=== PATIENT | female | born 1955 | race Caucasian/White ===

== ENCOUNTER 2020-01-23 10:36 | Emergency (ER) | payer OTHER ==
--- OUTSIDE RECORDS SUMMARY | 2020-01-23 10:40 | XMS REPORT | Continuity of Care Document ---
:1955 Author Organization [facility] t Address [address] [place] [address] Care Team Providers Name Role Phone Israel Phillips Attending Clinician Thompson MEDLEY, L Attending Clinician Problems Condition Condition Condition Status Onset Resolution Last Treating Co mments Source Name Details Category Date Date Treatment Clinician Date Hyperlipid Hyperlipid Problem Active 2019-0 V illage emia emia 01-02 Family 00:00: Practic 00 e Essential Essential Problem Active Martha margaret hypertensi Hypertensi 01-02 [facility] on on 00:00: Practic 00 e History of History of Problem Active 2019- V illage malignant Malignant 01-02 Fami ly neoplasm Neoplasm 00:00: Practi c of kidney of Kidney 00 e Obesity Obesity Problem Active 2020-0 Village 01-02 Family 00:00: Practic 00 e Nicotine Nicotine Problem Active Stern ge dependence Dependence 01-02 [facility] 00:00: Practic 00 e Paresthesi Paresthesi Problem Active [facility] skin a of skin [facility] Lesion of Lesion of Problem Active [facility] right right [facility] - median median [facility] nerve nerve l [facility] Clin[facility] Carpal Carpal Diagnosis Active [facility] tunnel tunnel [facility] - syndrome, syndrome, Ming andrae right right l Outpati ent Clinics Pain in Pain in Diagnosis Active [facility] joint of [facility] - right hand right hand Me moria l [facility]pat[facility] ent Clinics Dizziness Problem Active 2019-07-06 Me moria (finding) 22:48:14 l [place] Dizziness (finding) Active Problem 07/06/2019 [facility] Headache Problem Active 2019-07-06 Mem oria (finding) 22:48:14 l Headache Fel[place] n (finding) Active Problem 07/06/2019 [facility] Hypertensi Problem Active 2019-07-06 M emoria ve 22:48:14 l disorder, Nuno systemic Hypertensi arterial ve (disorder) disorder, systemic arterial (disorder) Active Problem 07/06/2019 [facility] Hypothyroi Problem Active 2019-07-06 M emoria dism 22:48:14 l (disorder) [place] n Hypothyroi dism (disorder) Active Problem 07/06/2019 [facility] Morbid Problem Active 2019-07-06 Memor ia obesity 22:48:14 l (disorder) Morbid Herm grant obesity (disorder) Active Problem 07/06/2019 [facility] 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 22:48:14 l (disorder) 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) Active Problem 07/06/2019 [facility] Renal cell Problem Active 2019-07-06 M emoria carcinoma 22:48:14 l (disorder) Renal Autumn nn cell carcinoma (disorder) Active Problem 07/06/2019 [facility] Transient Problem Active 2019-07-06 Me moria ischemic 22:48:14 l attack [place] (disorder) Transient ischemic attack (disorder) Active Problem 07/06/2019 [facility] Carpal Problem Active 2019-07-06 Memor ia tunnel 22:48:14 l syndrome Carpal [place] n (disorder) tunnel syndrome (disorder) Active Problem 07/06/2019 [facility] Lumbar Problem Active 2019-07-06 Memor ia radiculopa 22:48:14 l thy Lumbar [place] (disorder) radiculopa thy (disorder) Active Problem 07/06/2019 [facility] Allergies, Adverse Reactions, Alerts Allergy Allergy Status Severity Reaction(s) Onset Inactive Treating Comm ents Source Name Type Date Date Clinician Iodine Adverse Active Info Not [facility] Reaction Available [facility] Iodine Allergy Active [place]om[place] to Family substanc Practic e e SULFA Allergy Active Anaphylaxis Vill age (SULFONA to Family MIDE substanc Practic ANTIBIOT e e ICS) sulfa sulfa Active Memoria drugs drugs l Nuno iodinate iodinate Active Memori a d d l radiocon radiocon [place] n trast trast dyes dyes codeine codeine Active Nichol Reina Social History Smoking Status Start Date Stop Date Source Heavy Tobacco Smoker [facility] Social History 2019-01-03 19:04:36 Ayana grimm Medications Ordered Filled Start Stop Current Ordering Indication Dosage Frequency Signature Comments Components Source Medication Medication Date Date Medication? Clinician (SIG) Name Name oxcarbazepi 2017-05 No 150 mg = 1 Memoria ne 150 MG 1-29 tab, PO, l Oral Tablet 17:17: Bedtime, # Nuno [Trileptal] 00 30 tab, 2 Refill(s), Pharmacy: [facility] pregabalin 2017-05 No 50 mg = 1 Me moria 50 MG Oral 0-18 cap, PO, l Capsule 16:28: Bedtime, # Bienvenido burns [Lyrica] 00 14 cap, 0 Refill(s), other atorvastati 2017-05 Yes 10 mg = 1 M emoria n 10 mg 0-18 tab, PO, l oral tablet 16:28: Daily, # Remberto rmann 00 30 tab, 3 Refill(s), Pharmacy: [facility] 527 Thyroid Thyroid Yes [facility] not [facility] Pr[facility]akar defined [facility] Metoprolol Metoprolol Yes Ankit not [facility] Succinate Succinate [place] defined [facility] lipitor lipitor Yes [facility] not [facility] Pr[facility]akar defined [facility] ibuprofen ibuprofen No ibuprofen [facility] 800 mg 800 mg 800 mg Family tablet tablet tablet Practic e Tylenol 325 Tylenol 325 No 1capsul Tylenol [place] mg capsule mg capsule e(s) 325 mg F amily Take 1 Take 1 capsule Practic capsule as capsule as Take 1 e needed by needed by capsule as oral route. oral route. needed by oral route. Immunizations Ordered Immunization Filled Immunization Date Status Commen ts Source Name Name pneumococcal pneumococcal 2015-05-03 [facility] lianet polysaccharide PPV23 polysaccharide PPV23 00:00:00 Practice Vital Signs Vital Name Observation Time Observation Value Comments Source Height 2020-01-03 00:00:00 63 [in_i] [place] [facility] BMI (Body Mass 2020-01-03 00:00:00 36.1 kg/m2 [facility] Family Index) Practice Body Weight 2020-01-03 00:00:00 204 [lb_av] [facility] Systolic (mm Hg) 2019-01-03 18:51:00 Ming rial [place] Diastolic (mm Hg) 2019-01-03 18:51:00 Mem orial Nuno Heart Rate 2019-01-03 18:51:00 [facility] Respitory Rate 2019-01-03 18:51:00 Memori al Nuno Height 2019-01-03 18:51:00 157.48 cm [facility] Weight 2019-01-03 18:51:00 [facility] BMI Calculated 2019-01-03 18:51:00 Memori al [place] Weight 2018-11-01 21:09:00 [facility] BMI Calculated 2018-11-01 21:09:00 Memori al [place] Systolic (mm Hg) 2018-11-01 21:09:00 Ming rial Nuno Diastolic (mm Hg) 2018-11-01 21:09:00 Mem orial [place] Respitory Rate 2018-11-01 21:09:00 Memori al [place] Heart Rate 2018-11-01 21:09:00 [facility] Height 2018-11-01 21:09:00 160.02 cm [facility] [place] Weight 2018-09-29 18:49:00 [facility] BMI Calculated 2018-09-29 18:49:00 Memori al [place] Height 2018-09-29 18:49:00 157.48 cm [facility] Heart Rate 2018-09-29 18:49:00 [facility] Respitory Rate 2018-09-29 18:49:00 Memori al [place] Systolic (mm Hg) 2018-09-29 18:49:00 Ming rial Nuno Diastolic (mm Hg) 2018-09-29 18:49:00 Mem orial [place] BMI Calculated 2018-03-31 16:57:00 Memori al Nuno Weight 2018-03-31 16:57:00 [facility] Height 2018-03-31 16:57:00 160.02 cm Memorial [place] Heart Rate 2018-03-31 16:57:00 Memorial [place] Systolic (mm Hg) 2018-03-31 16:57:00 Ming rial Nuno Diastolic (mm Hg) 2018-03-31 16:57:00 Mem orial Nuno Height 2018-02-17 16:08:00 [facility] 2018-02-17 16:08:00 [facility] BMI Calculated 2018-02-17 16:08:00 Evelio tarango Nuno Respitory Rate 2018-02-17 16:08:00 Rianaadriana tarango Nuno Systolic (mm Hg) 2018-02-17 16:08:00 Ming mackay Nuno Diastolic (mm Hg) 2018-02-17 16:08:00 Riana jeet Nuno Heart Rate 2018-02-17 16:08:00 [facility] Nuno Procedures Procedure Date / Time Performing Clinician Source Performed 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 Knee Joints Practice Appendectomy [place] Practice Hysterectomy (Total) [facility] Practice Cholecystectomy [place] [place] [facility] Repair of Right Cleft Lip [place] [facility] Family with Rotation Advancement Practi ce Flap Screening for Osteoporosis Stern ge [facility] Practice Screening Mammography [facility] Colonoscopy with Biopsy [place] [place] Nephrectomy [facility] Plan of Care Planned Activity Planned Date Details Comments Source Future Appointment 2020-02-02 00:00:00 Vishal Macias [facility] [address]; Practice [address] [facility], [place] [address] Instructions [place] [facility] [place] Encounters Start End Encounter Admission Attending Care Care Encounter Source Date/Time Date/Time Type Type Clinicians Facility Department ID 2020-01-03 2020-01-03 [facility] [place] - [id number] V illage 00:00:00 00:00:00 Vishal Lundy Famil y SERVICE SUPPORT REPRESENTATIVE: [id number] - [address], [email or web address] [facility], [facility] [address] , Ph. 2019-07-04 2019-07-04 Outpatient PROSPER Phillips [id number] 13:15:00 13:15:00 Jose 07 Israel 2019-01-03 2019-01-03 Outpatient PROSPER PhillipsSCHBIBI [id number] 13:45:00 23:59:59 Jose 06 Israel 2018-12-05 2018-12-05 [id number] 14:15:25 14:54:02 [place] [id number] Surgical [id number] [facility] [id number] 198 Brandi 2018-11-01 2018-11-01 Outpatient JOSE PhillipsSCHER MHMISCHER [id number] 15:30:00 23:59:59 Jose Israel 2018-09-29 2018-09-29 Outpatient CRISTA PhillipsMISCHER MHMISCHER [id number] 13:15:00 23:59:59 Jose Israel 2018-08-22 2018-08-22 [facility] [id number] 08:00:00 08:00:00 [facility] Clinics 2018-05-12 2018-05-12 Outpatient JOSE PhillipsSCHER MHMISCHER [id number] 10:00:00 10:00:00 Jose 03 Israel 2018-05-07 2018-05-08 Outpatient PROSPER TOBINMISCHER [id number] 10:24:00 23:59:59 00 2018-03-31 2018-03-31 Outpatient JOSE PhillipsSCHER MHMISCHER [id number] 10:00:00 23:59:59 Jose Israel 2018-02-17 2018-02-17 Outpatient JOSE PhillipsSCHBIBI MHMISCHER [id number] 11:30:00 23:59:59 Jose Israel Results This patient has no known results.
--- OUTSIDE RECORDS SUMMARY | 2020-01-23 10:40 | XMS REPORT | Continuity of Care Document ---
:1955 Author Organization [facility] [facility] Care Team Providers Name Role Phone [facility] Unavailable Un available Problems Problem Status Onset Classification Date Comments Sourc e Date Reported Dizziness Active Problem 07/06/2019 [facility] (finding) Neuro Headache (finding) Active Problem 07/06/2019 [facility] Hypertensive Active Problem 07/06/2019 Mische r disorder, systemic N euro arterial (disorder) Hypothyroidism Active Problem 07/06/2019 Misc her (disorder) Neuro Morbid obesity Active Problem 07/06/2019 Misc her (disorder) Neuro 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/06/2019 M ischer (disorder) Neuro Renal cell Active Problem 07/06/2019 [facility] carcinoma Neuro (disorder) Transient ischemic Active Problem 07/06/2019 [facility] attack (disorder) Ne uro Carpal tunnel Active Problem 07/06/2019 Misch er syndrome Neuro (disorder) Lumbar Active Problem 07/06/2019 [facility] radiculopathy Neuro (disorder) Medications Medication Details Route Status Patient Ordering Order Source Instructions Provider Date oxcarbazepine 150 mg = 1 No Longer Misch er 150 MG Oral tab, PO, Active 018 Neuro Tablet Bedtime, # [Trileptal] 30 tab, 2 Refill(s), [facility] pregabalin 50 MG 50 mg = 1 No Longer Mis doris Oral Capsule cap, PO, Active 018 Neuro [Lyrica] Bedtime, # 14 cap, 0 Refill(s), other atorvastatin 10 10 mg = 1 Active Mische r mg oral tablet tab, PO, 018 Neuro Daily, # 30 tab, 3 Refill(s), [facility] Allergies, Adverse Reactions, Alerts Substance Category Reaction Severity Reaction Status Date Comments S ource type Reported sulfa drugs Assertion rash Drug Active Mi zane allergy Neuro iodinated Assertion rash Drug Active Misc her radiocontrast ,throat allergy Ne uro dyes swelling codeine Assertion rash,n/v Drug Active Misch er allergy Neuro Immunizations No Data Provided for This Section Results No Data Provided for This Section Pathology Reports No Data Provided for This Section Diagnostic Reports No Data Provided for This Section Consultation Notes No Data Provided for This Section Discharge Summaries No Data Provided for This Section History and Physicals No Data Provided for This Section Vital Signs Vital Sign Value Date Comments Source Systolic (mm Hg) 140 01/03/2019 [facility] Sheila ro Diastolic (mm Hg) 79 01/03/2019 [facility] Ne uro Heart Rate 89 [facility] 16 01/03/2019 [facility] Height 157.48 cm 01/03/2019 [facility] Weight 93.636 01/03/2019 [facility] BMI Calculated 37.76 01/03/2019 [facility] Weight 95.909 11/01/2018 [facility] BMI Calculated 37.46 11/01/2018 [facility] Systolic (mm Hg) 170 11/01/2018 [facility] Sheila ro Diastolic (mm Hg) 102 11/01/2018 [facility] Ne uro Respitory Rate 16 11/01/2018 [facility] Neuro Heart Rate 75 11/01/2018 [facility] Neuro Height 160.02 cm 11/01/2018 [facility] Neuro Weight 95.455 09/29/2018 [facility] Neuro BMI Calculated 38.49 09/29/2018 [facility] Neuro Height 157.48 cm 09/29/2018 [facility] Neuro Heart Rate 83 09/29/2018 [facility] Neuro Respitory Rate 16 09/29/2018 [facility] Systolic (mm Hg) 178 09/29/2018 [facility] Sheila ro Diastolic (mm Hg) 121 09/29/2018 [facility] Ne uro BMI Calculated 36.57 03/31/2018 [facility] Neuro Weight 93.636 03/31/2018 [facility] Neuro Height 160.02 cm 03/31/2018 [facility] Neuro Heart Rate 80 03/31/2018 [facility] Systolic (mm Hg) 156 03/31/2018 [facility] Hseila ro Diastolic (mm Hg) 74 03/31/2018 [facility] Ne uro Height 162.56 cm 02/17/2018 [facility] Weight 94.091 02/17/2018 [facility] BMI Calculated 35.61 02/17/2018 [facility] Neuro Respitory Rate 16 02/17/2018 [facility] Systolic (mm Hg) 149 02/17/2018 [facility] Sheila ro Diastolic (mm Hg) 81 02/17/2018 [facility] Ne uro Heart Rate 78 02/17/2018 [facility] Neuro Encounters Location Location Encounter Encounter Reason Attending ADM DC Stat us Source Details Type Number For Provider Date Date Visit Outpatient [id number] ESTRELLA 01/20 Active [facility] [place] [place] Outpatient [id number] ESTRELLA 02/17 Active [facility] Nuno MNA Outpatient [id number] Estrella 02/17 02/18 [facility] Neurology [facility] [place] Outpatient [id number] ESTRELLA 03/31 Active [facility] Nuno MNA Outpatient [id number] Estrella 03/31 04/01 [facility] Neurology [facility] [place] MNA Outside [id number] 05/07 05/09 [facility] Neurology [facility] /2018 [facility] [place] Records Outpatient [id number] ESTRELLA 05/12 Active [facility] Nuno MNA Ambulatory [id number] Estrella 05/12 05/12 [facility] Neurology Pre-Reg [facility] [place] Outpatient [id number] Estrella 09/29 Active [facility] Nuno MNA Outpatient [id number] Estrella 09/29 09/30 [facility] Neurology Kre /2018 [facility] [place] Outpatient [id number] Estrella 11/01 Active [facility] Nuno MNA Outpatient [id number] Estrella 11/01 11/02 [facility] Neurology [facility] [place] Outpatient [id number] Estrella 01/03 Active [facility] Nuno MNA Outpatient [id number] Estrella 01/03 01/04 [facility] Neurology [facility] [place] Outpatient [id number] Estrella 07/03 Active [facility] Nuno MNA Ambulatory [id number] Estrella 07/03 07/03 [facility] Neurology Pre-Reg Kre [facility] [place] Procedures Procedure Code Date Perfomer Comments Source Nephrectomy [id number] [facility] Neuro Assessment and Plan No Data Provided for This Section Plan of Care No Data Provided for This Section Social History Social History Date Source Social History TypeResponse 01/03/2019 [facility] Neur o Smoking Status Current every day smoker; Exposure to To bacco Smoke Unable to obtain; Cigarette Smoking Last 365 Days Yes; Reg Smoking Cessation Counseling No entered on: 01/03/19 Family History No Data Provided for This Section Advance Directives No Data Provided for This Section Functional Status No Data Provided for This Section
--- OUTSIDE RECORDS SUMMARY | 2020-01-23 10:40 | XMS REPORT | Encounter Summary ---
:1955 Author Care Team Providers Name Role Phone Dr. Julio Lozano Primary Care Provider [phone] Reason for Visit TELE-AWV Annual Wellness Visit Female Instructions 1. Essential hypertension 2. Hyperlipidemia high cholesterol: care ins tructions 3. History of malignant neoplasm of kidney 4. Advance directive discussed w ith patient advance care planning: car e instructions 5. Depression screening learning about depression Discussion Note: None recorded. Plan of Care Patient Instructions It was good to speak with you tony ashwiniy today for your Medicare Annual Wellness Visit. You have been provided some information on healthy nutrition, including a diet rich in fruits and vegetables, minimizing simple carbohydrates, salt, and saturated fats. I want to encourage regular cardiovascular exercise such as walking at least 30 minutes daily, 5 times per week. Please remember to schedule any prevent tory health measures that we talked about today. You have also been provided education on fall prevention and community- based lifestyle interventions to help reduc e health risks and promote healthy livin g in your Annual Wellness folder. Screening Recommendations 1. Vaccines Pneumonia: Next one Influen za: Recommended today 2. Mammography Screening: Recommended today 3. Colorectal Cancer Screening: IFOB (every year) Recommended today 4. Annual Depression Screeni ng 5. Annual Alcohol Screening 6. Annual Fall Risk Screening 7. Annual Health Risk Assessment Reminders Provider Appointments Return to on or around Darian Lundy, Office 02/02/2020 [facility] ANALYSIS PROFESSIONAL Lab None recorded. Referral None recorded. Procedures None recorded. Surgeries None recorded. Imaging None recorded. Medications Name Start Date ibuprofen 800 mg tablet Tylenol 325 mg capsule Take 1 capsule as needed by oral route. Medications Administered None recorded. Vitals Height Weight BMI 5 ft 3 in 204 lbs 36.1 kg/m2 Results Lab Results None recorded. 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 S sandeep Information not available of Hand Bilateral Replacement of Knee Joints Inf ormation not available Appendectomy Information not avai lable Hysterectomy (Total) Information not tosin ilable Cholecystectomy Information not avai lable Repair of Right Cleft Lip with Rotation Information not available Advancement Flap Screening for Osteoporosis Information n ot available Screening Mammography Information not av ailable Colonoscopy with Biopsy Information not available Vaccine List Vaccine Type pneumococcal polysaccharide PPV23 05/03/2015 Social History Tobacco Smoking Status Heavy Tobacco Smoker (1 05/04 PPD) Past Encounters 01/03/2020 Essential Hypertension; Hyperlipidemia; History of Malignant Neoplasm of Kidney; Advance Directive Discussed with Patient; Depression Screening Stormy Lundy BUSINESS ANALYSIS PROFESSIONAL: [address] [facility], [address], [place] [address], Ph. History of Present Illness Chronic Disease Management: HTN, DM, Lipid Disorder CDM Reported By: Patient HPI: Type: hypertension essential , mixed hyperlipidemia. Duration or Onset: chronic. Status: Target BP & lt; 130/80, Target LDL < . Severity without complications. Associated Sy mptoms: NO NEW ASSOCIATED SYMPTOMS. Compliance: NOT COMPLIANT wi th theraputic plan Mini Cog Reported By: Patient Functional Ability: Personal/Social/ 3 word reca ll: Your nurse or doctor will ask you to remember 3 words. In 5 m inutes, they will ask you to repeat them. Patient recalled 3 w ords Opioid Use Assessment Reported By: Patient Opioid Use Assessment:: Current Use of Opioids : no use of opioids (no further questions required) Note: I confirm that I received verbal consent from the patient for the virtual visit.
This telemedicine encounter was performed using live {{video and audio*|audio only because either patient did not have technology or unable to connect due to technical problems}}.
<strong>(for audio only)</strong> Total time spent with patient: {{ }} minutes.<div>[facility] ( Stormy Lundy ) reviewed the Virtual Care consent form verbally with patient. Patient {{did|did not*}} have questions. Any and all patient questions were addressed. Patient consented to health care services provided via [facility]. Patient was directed to the [facility] website to review the form in greater detail. Patient was informed that a physical copy of the consent would be mailed to his/her home. Patient confirmed that, upon receipt of the consent, that he/she will sign and return the form in the pre-addressed and stamped envelope.</div><div>
</div><div>This is a AWV for a 64 y/o. She denies any current medical problems. Pt states that she was given a precription for high blood pressure and cholesterol but she dd Pt denies being in the ER or hospilaization within the last 12 months. </div>Review of Systems: ROS as noted in the HPI Review of Systems None recorded. Physical Exam Telemedicine/Virtual Visit Reported By: Patient"
--- OUTSIDE RECORDS SUMMARY | 2020-01-23 10:41 | XMS REPORT | Encounter Summary ---
:1955 Author Care Team Providers Name Role Phone Dr. 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 Referral None recorded. Procedures [...] Discussed with Patient; Depression Screening Stormy Lundy PROJECT DEVELOPMENT LEADER: [address] [facility], [address], [place] [address], Ph. History of Present Illness Chronic Disease [...] Total time spent with patient: {{ }} minutes.<div>[facility] ( Stormy Lund[facility] ) reviewed the Virtual Care consent form verbally with patient. Patient {{did|did not*}} have questions. Any and all patient questions were addressed. Patient consented to health care services provided via [facility]. Patient was directed to the [facility] website to review the form in [...]
--- OUTSIDE RECORDS SUMMARY | 2020-01-23 10:41 | XMS REPORT | Encounter Summary ---
:1955 Author Care Team Providers Name Role Phone Dr. Julio Lozano Primary Care Provider [phone] Reason for Visit TELE-AWV Annual Wellness Visit Female; T obacco Cessation Counseling Instructions 1. Essential hypertension 2. Hyperlipidemia high cholesterol: care ins tructions 3. History of malignant neoplasm of kidney 4. Obesity 5. Body mass index 30+ - obesity body mass index: care inst ructions learning about healthy adarsh ght 6. Nicotine dependence stopping smoking: care ins tructions advised to quit smoking deciding about using medic antonio to quit smoking 7. Advance directive discussed w ith patient advance care planning: car e instructions 8. Depression screening learning about depression Discussion Note: None recorded. Plan of Care Patient Instructions It was good to speak with you tony vogt today for your Medicare Annual Wellness Visit. [...] Risk Screening 7. Annual Health Risk Assessment Quitting Tobacco Goals Quitting smokin g is important for your health, but it is hard to do. We agreed to the following goals towards reducing your tobacco habits: Today we talked about how you are . S martita you want to smoke less, but are not ready to quit yet, we agreed that by your next appointment, you would . Since your ready to quit smoking, we agreed that you would smoke your last cigarette on . 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 *Regular exercise *Chew gum or hard can dy *Identify triggers that lead to smoking, and establish new strategies for coping with these situations *Keep yourself busy *Contact additional resources for hernandes pport, such as [employer] *Don't give up, even if you have a setback How can my healthcare team support me i n quitting smoking? 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 Referral None recorded. Procedures [...] Status Onset Date Source Hyperlipidemia Active 01/03/2020 Obesity Active 01/03/2020 Nicotine Dependence Active 01/03/2020 Essential Hypertension Active 01/03/2020 History [...] Tobacco Smoking Status Heavy Tobacco Smoker (1 1/2 PPD) Past Encounters 01/03/2020 Essential Hypertension; Hyperlipidemia; History of Malignant Neoplasm of Kidney; Obesity; Body Mass Index 30+ - Obesity; Nicotine Dependence; Advance Directive Discussed with Patient; Depression Screening Stormy Lundy NP: [address] [facility], [address], [place] [address], Ph. History of Present Illness Chronic Disease [...] repeat them. Patient recalled 3 w ords Tobacco Cessation Reported By: Patient HPI: Duration: 30 years. Timing: daily. Quality: 25 cigarettes/day. Context: during stress. Associated Sy mptoms: no weight loss, no fever/chills/sweats, no fati sarah, no hoarseness or change in voice, no pain or difficulty swallowin g, no shortness of breath. Treatments tried: none. Why treatment was stop ped: not applicable. Contraindications to taking NRT: none. Caution to taking NRT none Opioid Use Assessment Reported By: Patient Opioid Use Assessment:: Current Use of Opioids : no use of opioids (no further questions required) Obesity Reported By: Patient HPI: Diagnosis Summary: age at st art of weight gain , additional diagnosis: . Context: no inhaled steroids , no oral steroids. Associated Symptoms: no depression, no hypothyroidis m. Co-morbidities: hypertension, elevated lipids. Lifestyle changes: m otivated to continue lifestyle changes. Medication Education: unders tands potential side effects, understands administration, understands role of diet as primary therapy Note: I confirm that I received verbal consent from the patient for the virtual visit.
This telemedicine encounter was performed using live {{video and audio|audio only because either patient did not have technology or unable to connect due to technical problems*}}.
<strong>(for a udio only)</strong> Total time spent with patient: {{60 #| }} minutes.<div>[facility] ( Stormy Lundy ) reviewed the Virtual Care consent form verbally with patient. Patient {{did|did not*}} have questions. Any and all patient questions were addressed. Patient consented to health care services provided via Virtual Care. Patient was directed to the [facility] website to review the form in greater [...]
--- NOTE | 2020-01-23 12:12 | RAD REPORT ---
EXAM DESCRIPTION: CT - Stone Protocol - 01/23/2020 11:47 am CLINICAL HISTORY: FLANK PAIN COMPARISON: No comparisons TECHNIQUE: Axial 5 mm thick images were obtained without oral or IV contrast. The [id number] span s the entirety of the system including uppermost abdomen and lung bases. All CT scans are performed using dose optimization technique as appropriate and may include automated exposure control or mA/KV adjustment according to patient size. FINDINGS: Left kidney is absent. Right kidney shows no hydronephrosis or obstructing calculus. A 2 m m nonobstructing calculus seen in the upper pole calyx on the right. A small 3 mm curvilinear calcifi cation is seen in the lateral parenchyma. No suspicious renal masses. Isodense masses and pyelonephri tis are not excluded on a stone protocol CT scan. A 2 centimeter right adrenal mass is present with a 7 Hounsfield unit attenuation value. This is very likely an incidental adenoma. Significance is doub tful. Left adrenal gland is also absent. Partially filled urinary bladder shows no suspicious finding . Uterus is absent. Atrophic remnant ovarian tissue is evident. No adnexal mass. Imaged portions of the liver, spleen and pancreas show no suspicious findings on non-contrast imaging . Gallbladder is absent. No biliary tree dilatation. No suspicious bowel findings. No active GI process seen. Patient has minimal sigmoid diverticulosis. No mass or bulky lymphadenopathy identified. Lateral left mid abdomen hernia is present between the r ectus abdominus an oblique musculature. This is slightly above the umbilical level. This is 7 cm in t ransverse diameter with a 2 centimeter thickness. The neck is 5 cm wide. This contains only fat. Maria T cent bowel is uninvolved. No other hernia changes seen. No free air, free fluid or inflammatory stranding. Disc and bony degenerative changes are present. Borderline canal stenosis seen in the mid lumbar spin e. No acute bone process seen. IMPRESSION: CT abdomen and pelvis imaging shows no acute or active process. Nonacute findings detailed in body of the report. Isodense masses and pyelonephritis are not excluded on stone protocol technique.
[2020-01-23 12:24] LABS: Absolute Lymphocytes (CBC) 1.7 K/uL (0.7-4.9); Basophils % 1.1 % (0-1.3); Hematocrit 51.1 % (36.0-45.0); MPV 8.3 fL (7.6-11.3); RBC Red Blood Cell Count 5.53 M/uL (3.86-4.86)
[2020-01-23] MEDS ORDERED: ONDANSETRON 4 MG/2 ML VIAL ONE (12:30)
[2020-01-23] MEDS ORDERED: DICYCLOMINE HCL 20 MG/2 ML AMP IM ONE (12:31)
[2020-01-23] MEDS ORDERED: DICYCLOMINE HCL 10 MG CAP ONE (12:34)
[2020-01-23 12:47] LABS: Urine Blood TRACE (NEG); Urine Glucose NEGATIVE (NEG); Urine Protein 3+ (NEG); Urine Specific Gravity 1.015 (1.005-1.030)
[2020-01-23] MEDS ORDERED: NA CHLORIDE 0.9% 1,000 ML ONE (12:53)
[2020-01-23 14:57] LABS: ALT/SGPT 27 U/L (12-78); Albumin 3.9 g/dL (3.4-5.0); Alkaline Phosphatase 102 U/L (45-117); BUN Blood Urea Nitrogen 20 mg/dL (7-18); Bicarbonate 25 mmol/L (21-32); Bilirubin Direct < 0.1 mg/dL (0-0.2); Bilirubin Total 0.4 mg/dL (0.2-1.0); Glucose Level 100 mg/dL (74-106); Lipase 295 U/L (73-393); Protein, Total 8.3 g/dL (6.4-8.2); Sodium Level 135 mmol/L (136-145)
[2020-01-23 14:58] LABS: Potassium 4.7 mmol/L (3.5-5.1)
[2020-01-23 14:59] LABS: AST/SGOT 27 U/L (15-37)
--- NOTE | 2020-01-23 15:08 | ER ---
Nurse's Notes [facility] Name: Zoe Jones Age: 64 yrs Sex: Female : 1955 Arrival Date: 01/23/2020 Time: 10:39 Bed 17 Private MD: Diagnosis: Volume depletion;flank pain;Zoster [herpes zoster] Presentation: 01/22 11:00 Chief complaint: Bit by spider on forehead 3 days ago, c/o right sided facial pain and hb swelling. On Bactrim Day 2. Also c/o sharp epigastric pain x 2 months. Coronavirus screen: At this time, the client does not indicate any symptoms associated with coronavirus-19. Ebola Screen: No symptoms or risks identified at this time. Initial Sepsis Screen: Does the patient meet any 2 criteria? No. Patient's initial sepsis screen is negative. Does the patient have a suspected source of infection? No. Patient's initial sepsis screen is negative. Risk Assessment: Do you want to hurt yourself or someone else? Patient reports no desire to harm self or others. Onset of symptoms was January 20, 2020. 11:00 Method Of Arrival: Ambulatory hb 11:00 Acuity: ZULEMA 3 hb Triage Assessment: 14:33 Bite description: by a spider. ll2 15:13 Bite description: bite sustained to forehead is animal information: vaccination(s) is ll2 unknown. Historical: - Allergies: 11:05 Iodine; hb 11:05 Codeine; hb - Home Meds: 11:05 Pravachol Oral [Active]; Metoprolol Tartrate Oral [Active]; hb - PMHx: 11:05 Hypertension; Nephrectomy - Right; Ranal CA; hb - PSHx: 11:05 ovary - right; Hysterectomy; Appendectomy; Shoulder - Right; Knee - bilateral; hb Cholecystectomy; - Immunization history:: Adult Immunizations up to date. - Social history:: Smoking status: Patient reports the use of cigarette tobacco products, smokes one pack cigarettes per day. Screenin:16 Abuse screen: Denies threats or abuse. Nutritional screening: No deficits noted. ll2 Tuberculosis screening: No symptoms or risk factors identified. Fall Risk IV access (20 points). Assessment: 12:10 General: Appears in no apparent distress. Behavior is calm, cooperative, appropriate ll2 for age. Pain: Complains of pain in right lower quadrant Pain radiates to right low back Pain currently is 7 out of 10 on a pain scale. Quality of pain is described as sharp, stabbing, Pain began pt states pain has been off and on for about 3 months. Is continuous. Neuro: Level of Consciousness is awake, alert, obeys commands, Oriented to person, place, time, situation. Cardiovascular: Capillary refill < 3 seconds Patient's skin is warm and dry. Respiratory: Airway is patent Respiratory effort is even, unlabored, Respiratory pattern is regular, symmetrical. GI: No signs and/or symptoms were reported involving the gastrointestinal system. GI: Patient currently denies diarrhea, nausea. : Denies burning with urination, urinary frequency. EENT: No signs and/or symptoms were reported regarding the EENT system. Derm: Skin is intact, is healthy with good turgor, Skin is pink, warm \T\ dry. Musculoskeletal: Circulation, motion, and sensation intact. Range of motion: intact in all extremities. 12:33 Reassessment: requested pain med from ERP. ll2 13:15 Reassessment: No changes from previously documented assessment. Patient and/or family ll2 updated on plan of care and expected duration. Pain level reassessed. Patient is alert, oriented x 3, equal unlabored respirations, skin warm/dry/pink. 14:15 Reassessment: No changes from previously documented assessment. Patient and/or family ll2 updated on plan of care and expected duration. Pain level reassessed. Patient is alert, oriented x 3, equal unlabored respirations, skin warm/dry/pink. 15:08 Reassessment: No changes from previously documented assessment. Patient and/or family ll2 updated on plan of care and expected duration. Pain level reassessed. Patient is alert, oriented x 3, equal unlabored respirations, skin warm/dry/pink. notified lab results were back and the ERP would be in shortly to discuss and findings. Vital Signs: 11:00 BP 173 / 95; Pulse 77; Resp 16; Temp 98.4; Pulse Ox 100% ; Weight 91.63 kg; Height 5 hb ft. 3 in. (160.02 cm); Pain 6/10; 12:14 BP 167 / 68; Pulse 77; Resp 14; Pain 7/10; ll2 13:12 BP 177 / 66; Pulse 80; Resp 14; Pulse Ox 99% on R/A; Pain 6/10; ll2 14:12 BP 133 / 102; Pulse 62; Resp 15; Pulse Ox 98% on R/A; ll2 15:06 BP 110 / 91; Pulse 55; Resp 14; Pulse Ox 98% on R/A; ll2 11:00 Body Mass Index 35.78 (91.63 kg, 160.02 cm) hb ED Course: 10:39 Patient arrived in ED. as 11:02 Triage completed. hb 11:05 Arm band placed on. hb 11:06 Salvador Cuevas, RN is Primary Nurse. em 11:09 Kenia Pickard FNP-C is PHCP. kb 11:09 Harshad Joiner MD is Attending Physician. kb 11:47 CT Stone Protocol In Process Unspecified. EDMS 12:12 Inserted saline lock: 20 gauge in right antecubital area, using aseptic technique. jd3 Blood collected. 13:12 No provider procedures requiring assistance completed. ll2 13:14 Patient has correct armband on for positive identification. Bed in low position. Call ll2 light in reach. Side rails up X 1. Pulse ox on. NIBP on. Warm blanket given. 15:16 IV discontinued, intact, bleeding controlled, No redness/swelling at site. Pressure ll2 dressing applied. Administered Medications: 12:29 Drug: Bentyl 50 mg Route: PO; ll2 12:45 Follow up: Response: No adverse reaction ll2 12:30 Drug: Zofran (Ondansetron) 4 mg Route: IVP; Site: right antecubital; ll2 12:45 Follow up: Response: No adverse reaction ll2 12:45 Drug: NS 0.9% 1000 ml Route: IV; Rate: 1000 ml; Site: right antecubital; ll2 12:46 Follow up: Response: No adverse reaction ll2 Outcome: 15:07 Discharge ordered by . kb 15:14 Discharged to home ambulatory. ll2 15:14 Condition: stable 15:14 Discharge instructions given to patient, Instructed on discharge instructions, follow up and referral plans. medication usage, Demonstrated understanding of instructions, follow-up care, medications, Prescriptions given X 2. 15:16 Patient left the ED. ll2 Signatures: Dispatcher [employer] EDWY Kenia Pickard FNP-C FNP-Ckb Munoz, Salvador, RN RN Renetta Morris as Kaykay Gee RN RN hb Davies, Jonathon, RN RN jd3 Linscombe, Lacie, RN RN ll2 Corrections: (The following items were deleted from the chart) 15:16 15:14 Discharge instructions given to patient, Instructed on discharge instructions, ll2 follow up and referral plans. medication usage, Demonstrated understanding of instructions, follow-up care, medications, Prescriptions given X 1, ll2
--- NOTE | 2020-01-23 15:08 | EDPHYS ---
Physician Documentation [facility] Name: Zoe Jones Age: 64 yrs Sex: Female : 1955 Arrival Date: 01/23/2020 Time: 10:39 Bed 17 Private MD: ED Physician Harshad Joiner HPI: 01/22 15:36 This 64 yrs old Female presents to ER via Ambulatory with complaints of kb Insect Bite, Epigastric Pain. 15:36 The patient's rash thought to be caused by spider bite. The rash is located on the left kb side of forehead. The rash can be described as excoriated. Onset: The symptoms/episode began/occurred 4 day(s) ago. Associated signs and symptoms: Pertinent positives: itching, Pain. Severity of symptoms: At their worst the symptoms were moderate in the emergency department the symptoms are unchanged. The patient has not experienced similar symptoms in the past. The patient has not recently seen a physician. Pt reports she was bit on the forehead by a spider 4 days ago (saw and killed the spider). Called Dr Miller yesterday and he called in [facility] for her. States she woke up today and the left side of her face was tender to touch and she had a bump on her eyelid. Called her eye dr and was sent here. Also reports right lateral abd pain that started a while ago. Historical: - Allergies: 11:05 Iodine; hb 11:05 Codeine; hb - Home Meds: 11:05 Pravachol Oral [Active]; Metoprolol Tartrate Oral [Active]; hb - PMHx: 11:05 Hypertension; Nephrectomy - Right; Ranal CA; hb - PSHx: 11:05 ovary - right; Hysterectomy; Appendectomy; Shoulder - Right; Knee - bilateral; hb Cholecystectomy; - Immunization history:: Adult Immunizations up to date. - Social history:: Smoking status: Patient reports the use of cigarette tobacco products, smokes one pack cigarettes per day. ROS: 15:33 Constitutional: Negative for fever, chills, and weight loss, Cardiovascular: Negative kb for chest pain, palpitations, and edema, Respiratory: Negative for shortness of breath, cough, wheezing, and pleuritic chest pain, Back: Negative for injury and pain, : Negative for injury, bleeding, discharge, and swelling, MS/Extremity: Negative for injury and deformity, Neuro: Negative for headache, weakness, numbness, tingling, and seizure. 15:33 Abdomen/GI: Positive for abdominal pain, of the posterior aspect of right lateral abdomen and anterior aspect of right lateral abdomen. 15:33 Skin: Positive for rash. Exam: 15:33 Constitutional: This is a well developed, well nourished patient who is awake, alert, kb and in no acute distress. ENT: Nares patent. No nasal discharge, no septal abnormalities noted. Tympanic membranes are normal and external auditory canals are clear. Oropharynx with no redness, swelling, or masses, exudates, or evidence of obstruction, uvula midline. Mucous membranes moist. Neck: Trachea midline, no thyromegaly or masses palpated, and no cervical lymphadenopathy. Supple, full range of motion without nuchal rigidity, or vertebral point tenderness. No Meningismus. Chest/axilla: Normal chest wall appearance and motion. Nontender with no deformity. No lesions are appreciated. Cardiovascular: Regular rate and rhythm with a normal S1 and S2. No gallops, murmurs, or rubs. Normal PMI, no JVD. No pulse deficits. Respiratory: Lungs have equal breath sounds bilaterally, clear to auscultation and percussion. No rales, rhonchi or wheezes noted. No increased work of breathing, no retractions or nasal flaring. Back: No spinal tenderness. No costovertebral tenderness. Full range of motion. MS/ Extremity: Pulses equal, no cyanosis. Neurovascular intact. Full, normal range of motion. Neuro: Awake and alert, GCS 15, oriented to person, place, time, and situation. Cranial nerves II-XII grossly intact. Motor strength 5/5 in all extremities. Sensory grossly intact. Cerebellar exam normal. Normal gait. 15:33 Abdomen/GI: Inspection: abdomen appears normal, Bowel sounds: normal, in all quadrants, Palpation: soft, in all quadrants, moderate abdominal tenderness, in the anterior aspect of right lateral abdomen and posterior aspect of right lateral abdomen. 15:33 Skin: rash a mild rash is noted, rash can be described as vesicular, consistent with zoster, on the left upper eyelid and lateral canthus of left eye. Vital Signs: 11:00 BP 173 / 95; Pulse 77; Resp 16; Temp 98.4; Pulse Ox 100% ; Weight 91.63 kg; Height 5 hb ft. 3 in. (160.02 cm); Pain 6/10; 12:14 BP 167 / 68; Pulse 77; Resp 14; Pain 7/10; ll2 13:12 BP 177 / 66; Pulse 80; Resp 14; Pulse Ox 99% on R/A; Pain 6/10; ll2 14:12 BP 133 / 102; Pulse 62; Resp 15; Pulse Ox 98% on R/A; ll2 15:06 BP 110 / 91; Pulse 55; Resp 14; Pulse Ox 98% on R/A; ll2 11:00 Body Mass Index 35.78 (91.63 kg, 160.02 cm) hb MDM: 11:09 Patient medically screened. kb 15:06 Data reviewed: vital signs, nurses notes. Data interpreted: Pulse oximetry: on room air kb is 98 %. Interpretation: normal. Counseling: I had a detailed discussion with the patient and/or guardian regarding: the historical points, exam findings, and any diagnostic results supporting the discharge/admit diagnosis, lab results, radiology results, the need for outpatient follow up, a family practitioner, to return to the emergency department if symptoms worsen or persist or if there are any questions or concerns that arise at home. 15:39 ED course: ERP evaluated pt as well and agrees with plan of care. kb 01/22 11:31 Order name: Basic Metabolic Panel; Complete Time: 15:06 kb 01/22 11:31 Order name: CBC with Diff; Complete Time: 12:34 kb 01/22 11:31 Order name: Hepatic Function; Complete Time: 15:06 kb 01/22 11:31 Order name: Lipase; Complete Time: 15:06 kb 01/22 11:31 Order name: CT Stone Protocol; Complete Time: 12:20 kb 01/22 12:42 Order name: Urine Dipstick--Ancillary (enter results); Complete Time: 12:48 bd 01/22 11:31 Order name: IV Saline Lock; Complete Time: 12:17 kb 01/22 11:31 Order name: Labs collected and sent; Complete Time: 12:17 kb 01/22 11:31 Order name: Urine Dipstick-Ancillary (obtain specimen); Complete Time: 11:49 kb 01/22 14:00 Order name: Labs - recollect needed: recollect green top; Complete Time: 14:24 bd Administered Medications: 12:29 Drug: Bentyl 50 mg Route: PO; ll2 12:45 Follow up: Response: No adverse reaction ll2 12:30 Drug: Zofran (Ondansetron) 4 mg Route: IVP; Site: right antecubital; ll2 12:45 Follow up: Response: No adverse reaction ll2 12:45 Drug: NS 0.9% 1000 ml Route: IV; Rate: 1000 ml; Site: right antecubital; ll2 12:46 Follow up: Response: No adverse reaction ll2 Disposition: 01/23/20 15:07 Discharged to Home. Impression: Volume depletion, flank pain, Zoster [herpes zoster]. - Condition is Stable. - Discharge Instructions: Shingles, Dehydration, Adult, [id number]. - Prescriptions for Prednisone 20 mg Oral Tablet - take 1 tablet by ORAL route once daily for 5 days; 5 tablet. Valtrex 1 g Oral Tablet - take 1 tablet by ORAL route every 8 hours for 7 days; 21 tablet. - Medication Reconciliation Form, Thank You Letter, Antibiotic Education, Prescription Opioid Use form. - Follow up: Emergency Department; When: As needed; Reason: Worsening of condition. Follow up: Private Physician; When: 2 - 3 days; Reason: Recheck today's complaints, Continuance of care, Re-evaluation by your physician. Addendum: 01/25/2020 07:14 Co-signature as Attending Physician, Harshad Joiner MD. r n Signatures: Dispatcher [employer] EDAR Kenia Pickard, CALOS-C BOOKKEEPER-CkRachel Jimenez Roman, MD MD rn Baxter, Heather, RN RN hb Linscombe, Lacie, RN RN ll2 Corrections: (The following items were deleted from the chart) 01/22 15:16 15:07 01/23/2020 15:07 Discharged to Home. Impression: Volume depletion; flank pain; ll2 Zoster [herpes zoster]. Condition is Stable. Forms are Medication Reconciliation Form, Thank You Letter, Antibiotic Education, Prescription Opioid Use. Follow up: Emergency Department; When: As needed; Reason: Worsening of condition. Follow up: Private Physician; When: 2 - 3 days; Reason: Recheck today's complaints, Continuance of care, Re-evaluation by your physician. kb
[2020-01-23 15:24] VITALS: TEMP 98.4
[2020-01-23 15:27] VITALS: O2SAT 98
[2020-01-23 15:28] VITALS: BP 110/91
== END 2020-01-23 15:16 | disposition home or self-care (01) ==
LOC: ER 10:36
DX: B02.9 Zoster without complications (principal); E86.9 Volume depletion, unspecified; I10 Essential (primary) hypertension; Z85.53 Personal history of malignant neoplasm of renal pelvis; Z88.5 Allergy status to narcotic agent; Z91.048 Other nonmedicinal substance allergy status; F17.210 Nicotine dependence, cigarettes, uncomplicated
CPT/HCPCS: 85025; 80048; 36415; 80076; 81003; 83690; 76377; 74176; J7030; J2405; 96374; 99284; J0500

== ENCOUNTER 2020-08-29 14:52 | Observation (INO) | payer OTHER ==
--- OUTSIDE RECORDS SUMMARY | 2020-08-29 14:54 | XMS REPORT | Continuity of Care Document ---
:1955 Author Organization [facility] t Address [address] [place] [address] Care Team Providers Name Role Phone Israel Phillips Attending Clinician Thompson MEDLEY, L Attending Clinician Problems Condition Condition Condition Status Onset Resolution Last Treating Co mments Source Name Details Category Date Date Treatment Clinician Date Kidney Kidney Problem Active 2019-05 [facility] stone Stone 1-03 Family 00:00: Practic 00 e Morbid Morbid Problem Active 2019-05 [facility] obesity Obesity 0-02 Family 00:00: Practic 00 e Chronic Chronic Problem Active 2019-05 [facility] back pain Back Pain 0-02 Fami ly 00:00: Practic 00 e Noncomplia Noncomplia Problem Active 2019-05 [facility] with nce with 0-02 Family treatment Treatment 00:00: Prac tic 00 e Body mass Body Mass Problem Active Martha margaret index 30+ Index 30+ 9-29 Fami ly - obesity - Obesity 00:00: Prac tic 00 e Hyperlipid Hyperlipid Problem Active 0 [facility] emia emia 9- Family 00:00: Practic 00 e Essential Essential Problem Active Martha margaret hypertensi Hypertensi 01-02 on on 00:00: Practic 00 e Obesity Obesity Problem Active 2020- [facility] 9-02 Family 00:00: Practic 00 e Nicotine Nicotine Problem Active 2019- [facility] dependence Dependence 01-02 Fa lianet 00:00: Practic 00 e Paresthesi Paresthesi Problem [...] right hand right hand Me moria l [facility] Allergies, Adverse Reactions, Alerts Allergy Allergy Status Severity Reaction(s) Onset Inactive Treating Comm ents Source Name Type Date Date Clinician Codeine Allergy Active Anaphylaxis Martha margaret to Family substanc Practic e e Iodine Allergy Active [place] to Family substanc Practic e e SULFA Allergy Active Anaphylaxis [facility] ([place] to Family MIDE substanc Practic ANTIBIOT e e ICS) Iodine Adverse Active Info Not [facility] Reaction Available [facility] Social History Smoking Status Start Date Stop Date Source Heavy Tobacco Smoker [facility] Medications Ordered Filled Start Stop Current Ordering Indication Dosage Frequency Signature Comments Components Source Medication Medication Date Date Medication? Clinician (SIG) Name Name benzonatate benzonatate No benzonatat [facility] 200 mg 200 mg e 200 mg Family capsule capsule capsule Practi c TAKE 1 TAKE 1 TAKE 1 e CAPSULE BY CAPSULE BY CAPSULE BY MOUTH THREE MOUTH THREE MOUTH TIMES DAILY TIMES DAILY THREE FOR 14 DAYS FOR 14 DAYS TIMES DAILY FOR 14 DAYS ibuprofen ibuprofen No 1 ibuprofen [facility] 800 mg 800 mg 800 mg Family tablet Take tablet Take tablet Practic 1 tablet as 1 tablet as Take 1 e needed by needed by tablet as oral route oral route needed by for 6 days. for 6 days. oral route for 6 days. metoprolol metoprolol metoprolol [facility] succinate succinate succinate Family ER 100 mg ER 100 mg ER 100 mg Practic tablet,exte tablet,exte tablet,ext e nded nded ended release 24 release 24 release 24 hr TAKE 1 hr TAKE 1 hr TAKE 1 TABLET BY TABLET BY TABLET BY MOUTH ONCE MOUTH ONCE MOUTH ONCE DAILY DAILY DAILY simvastatin simvastatin No simvastati [facility] 20 mg 20 mg n 20 mg Family tablet TAKE tablet TAKE tablet Practic 1 TABLET BY 1 TABLET BY TAKE 1 e MOUTH ONCE MOUTH ONCE TABLET BY DAILY IN DAILY IN MOUTH ONCE THE EVENING THE EVENING DAILY IN THE EVENING tizanidine tizanidine No 1 tizanidine [facility] 4 mg tablet 4 mg tablet 4 mg F amily Take 1 Take 1 tablet Practic tablet as tablet as Take 1 e needed by needed by tablet as oral route oral route needed by for 30 for 30 oral route days. days. for 30 days. Tylenol 325 Tylenol 325 No 1capsul Tylenol [place] mg capsule mg capsule e(s) 325 mg F amily Take 1 Take 1 capsule Practic capsule as capsule as Take 1 e needed by needed by capsule as oral route. oral route. needed by oral route. Virtussin Virtussin No Virtussin [facility] AC 10 AC 10 AC 10 Family mg-100 mg/5 mg-100 mg/5 mg-100 Practic mL oral mL oral mg/5 mL e liquid TAKE liquid TAKE oral 5 ML BY 5 ML BY liquid MOUTH EVERY MOUTH EVERY TAKE 5 ML 4 HOURS 4 HOURS BY MOUTH NEEDED FOR NEEDED FOR EVERY 4 COUGH COUGH HOURS NEEDED FOR COUGH Thyroid Thyroid Yes Ankit not [facility] defined [facility] Metoprolol Metoprolol Yes Ankit not [facility] Succinate Succinate Prabhakar defined [facility] lipitor lipitor Yes Ankit not [facility] defined [facility] Immunizations Ordered Immunization Filled Immunization Date Status Commen ts Source Name Name COVID-19, mRNA, COVID-19, mRNA, 2020-04-06 Completed [facility] LNP-S, PF, 100 LNP-S, PF, 100 00:00:00 Practi ce mcg/0.5 mL dose mcg/0.5 mL dose pneumococcal pneumococcal 2015-05-03 [facility] polysaccharide PPV23 polysaccharide PPV23 00:00:00 Practice Vital Signs Vital Name Observation Time Observation Value Comments Source BP Diastolic 2020-05-14 00:00:00 72 mm[Hg] [facility] Practice Height 2020-05-14 00:00:00 63 [in_i] [facility] Practice BMI (Body Mass 2020-05-14 00:00:00 35.8 kg/m2 [facility] Family Index) Practice BP Systolic 2020-05-14 00:00:00 130 mm[Hg] [facility] Body Weight 2020-05-14 00:00:00 202 [lb_av] [facility] BP Diastolic 2020-03-05 00:00:00 72 mm[Hg] [facility] Height 2020-03-05 00:00:00 63 [in_i] [facility] BMI (Body Mass 2020-03-05 00:00:00 35.8 kg/m2 [facility] e Family Index) Practice BP Systolic 2020-03-05 00:00:00 137 mm[Hg] [facility] Body Weight 2020-03-05 00:00:00 202 [lb_av] [facility] Practice Height 2020-02-02 00:00:00 63 [in_i] [facility] Practice BMI (Body Mass 2020-02-02 00:00:00 35.4 kg/m2 [facility] Index) [facility] Body Weight 2020-02-02 00:00:00 200 [lb_av] [facility] Height 2020-01-03 00:00:00 63 [in_i] [facility] Practice BMI (Body Mass 2020-01-03 00:00:00 36.1 [facility]/m[facility] Body Weight 2020-01-03 00:00:00 204 [lb_av] [facility] Procedures Procedure Date / Time Performing Clinician Source Performed Excision of Left Kidney 2008-05-03 00:00:00 [facility] 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 Sheath of Practi ce Hand Bilateral Replacement of [facility] Knee Joints Practice Appendectomy [facility] Hysterectomy (Total) [facility] Cholecystectomy [facility] Repair of Right Cleft Lip [facility] e Family with Rotation Advancement Practi ce Flap Screening for Osteoporosis [place] Practice Screening Mammography [facility] Colonoscopy with Biopsy [facility] Encounters Start End Encounter Admission Attending Care Care Encounter Source Date/Time Date/Time Type Type Clinicians Facility Department ID 2020-05-14 2020-05-14 [facility] [place] - [id number] [facility] 00:00:00 00:00:00 NikkieVishal Famil y BRANCH EXAMINER: [id number] Medical - Pract cara Quintana, [email or web address] [facility], [facility] [id number] , Ph. 2020-03-05 2020-03-05 [facility] [place] - [id number] [facility] 00:00:00 00:00:00 NikkieVishal Famil y BRANCH EXAMINER: [id number] Medical - Pract cara Quintana, [email or web address] [facility], [facility] [address] , Ph. 2020-02-02 2020-02-02 [facility] [place] - [id number] V illage 00:00:00 00:00:00 Vishal Lundy Famil y BRANCH EXAMINER: [id number] Medical - Pract ic Cherelle Quintana, [email or web address] [address], [facility] [address] , Ph. 2020-01-03 2020-01-03 [facility] [place] - [id number] V illage 00:00:00 00:00:00 Vishal Lundy y BRANCH EXAMINER: [id number] [facility] - Pract ic Cherelle Quintana, [email or web address] [address], [facility] [address] , Ph. 2019-07-04 2019-07-04 Outpatient PROSPER Phillips [id number] 13:15:00 13:15:00 Jose 07 [facility] 2019-01-03 2019-01-03 Outpatient PROSPER PhillipsMISCHBIBI [id number] 13:45:00 23:59:59 Jose 06 [facility] 2018-12-05 2018-12-05 Office [facility] [id number] 14:15:25 14:54:02 Visit [facility] [id number] Surgical [id number] Special [id number] 198 [place] 2018-11-01 2018-11-01 Outpatient PROSPER PhillipsMISCHBIBI [id number] 15:30:00 23:59:59 Jose [facility] 2018-09-29 2018-09-29 Outpatient PROSPER PhillipsMISCHER [id number] 13:15:00 23:59:59 Jose [facility] 2018-08-22 2018-08-22 [facility] [id number] [address] 08:00:00 08:00:00 [facility] 2018-05-12 2018-05-12 Outpatient PROSPER PhillipsMISINAI [id number] 10:00:00 10:00:00 Jose 03 [place] 2018-05-07 2018-05-08 Outpatient [facility] [id number] 10:24:00 23:59:59 00 2018-03-31 2018-03-31 Outpatient Jacqueline [facility] [id number] 10:00:00 23:59:59 Jose 02 [place] 2018-02-17 2018-02-17 Outpatient Jacqueline [facility] [id number] 11:30:00 23:59:59 Jose [place] Results This patient has no known results.
--- NOTE | 2020-08-29 16:06 | RAD REPORT ---
EXAM DESCRIPTION: CT - Head Brain Wo Cont - 08/29/2020 3:59 pm CLINICAL HISTORY: HEADACHE COMPARISON: Head Brain Wo Cont dated 01/11/2018 TECHNIQUE: Axial 5 mm thick images of the head were obtained without IV contrast. All CT scans are performed using dose optimization technique as appropriate and may include automated exposure control or mA/KV adjustment according to patient size. FINDINGS: No intracranial hemorrhage, mass, edema or shift of mid-line structures. No acute infarcti on changes seen. Patient has minimal atrophy change. Ventricles are normal. No new or progressive chr onic ischemic change in the cerebral white matter. Mastoid air cells and visualized portions of the paranasal sinuses are clear. No acute bony findings. IMPRESSION: Negative non-contrast CT head examination for acute finding. No significant change from 2018.
--- NOTE | 2020-08-29 16:12 | RAD REPORT ---
EXAM DESCRIPTION: CT - Stone Protocol - 08/29/2020 4:01 pm CLINICAL HISTORY: FLANK PAIN COMPARISON: Stone Protocol dated 01/23/2020 TECHNIQUE: Axial 3 mm thick images were obtained without oral or IV contrast. The [id number] span s the entirety of the system including uppermost abdomen and lung bases. All CT scans are performed using dose optimization technique as appropriate and may include automated exposure control or mA/KV adjustment according to patient size. FINDINGS: No hydronephrosis is present and no obstructing ureteral calculi. No suspicious renal mass es. Isodense masses and pyelonephritis are not excluded on a stone protocol CT scan. Left kidney is a bsent. No urinary bladder suspicious finding. Approximately 2-2.5 centimeter right renal mass continu es to show very low attenuation indicating adenoma in etiology. Imaged portions of the liver, spleen and pancreas show no suspicious findings on non-contrast imaging . Gallbladder is absent. No biliary tree dilatation. No suspicious bowel findings. No mass or bulky lymphadenopathy. The left mid abdomen incisional or spigelian hernia has not change from January 2020. This wide neck hernia shows no acute component. Minimal fat extending into each inguinal canal as an incidental finding. No free air, free fluid or inflammatory stranding. No significant bony abnormality. IMPRESSION: Noncontrast CT abdomen and pelvis imaging, as detailed above, shows no acute or emergent finding. No significant change from comparison. Isodense masses and pyelonephritis are not excluded on stone protocol technique.
[2020-08-29 16:21] LABS: Absolute Lymphocytes (CBC) 1.4 K/uL (0.7-4.9); Basophils % 0.4 % (0-1.3); Hematocrit 49.7 % (36.0-45.0); Lymphocytes % 14.8 % (15.3-44.8); MPV 8.2 fL (7.6-11.3); RBC Red Blood Cell Count 5.26 M/uL (3.86-4.86)
[2020-08-29] MEDS ORDERED: ONDANSETRON 4 MG/2 ML VIAL ONE (16:24)
[2020-08-29] MEDS ORDERED: MORPHINE 4 MG/ML SYR ONE (16:24)
[2020-08-29 16:29] LABS: Protime INR 1.02
[2020-08-29 16:56] LABS: ALT/SGPT 25 U/L (12-78); AST/SGOT 11 U/L (15-37); Albumin 3.5 g/dL (3.4-5.0); Alkaline Phosphatase 97 U/L (45-117); BUN Blood Urea Nitrogen 21 mg/dL (7-18); Bicarbonate 25 mmol/L (21-32); Bilirubin Direct < 0.1 mg/dL (0-0.2); Bilirubin Total 0.4 mg/dL (0.2-1.0); Glucose Level 156 mg/dL (74-106); Lipase 383 U/L (73-393); NT PRO-BNP 143 pg/mL (<125); Potassium 4.5 mmol/L (3.5-5.1); Protein, Total 7.5 g/dL (6.4-8.2); Sodium Level 138 mmol/L (136-145); Troponin (Emerg Dept Use Only) < 0.02 ng/mL (0.0-0.045)
--- NOTE | 2020-08-29 17:16 | RAD REPORT ---
EXAM DESCRIPTION: RAD - Chest Single View - 08/29/2020 4:33 pm CLINICAL HISTORY: chest pressure;SOB COMPARISON: Two view chest January 2018 TECHNIQUE: AP portable chest image was obtained 08/29/2020 4:33 pm . FINDINGS: No focal mass consolidation. Interstitial pattern is mildly prominent but not substantiall y different from remote 2018 imaging. Hilar regions are stable. Heart and vasculature are normal. No measurable pleural effusion and no pneumothorax. No acute bony abnormality seen. No acute aortic find ings suspected. IMPRESSION: No acute cardiopulmonary process. No significant change from comparison.
[2020-08-29 17:32] LABS: Urine Blood Trace-lysed (Negative); Urine Glucose Negative (Negative); Urine Protein 3+ (Negative)
[2020-08-29] MEDS ORDERED: ONDANSETRON 4 MG/2 ML VIAL IV PRN (17:32)
[2020-08-29] MEDS ORDERED: ACETAMINOPHEN 500 MG TAB PO PRN (17:32)
[2020-08-29] MEDS ORDERED: MAGNESIUM HYDROXIDE 8% 30 ML PO PRN (17:32)
--- NOTE | 2020-08-29 17:44 | EDPHYS ---
Physician Documentation [facility] Name: Zoe Jones Age: 65 yrs Sex: Female : 1955 Arrival Date: 08/29/2020 Time: 14:54 Bed 4 Private MD: Julio Miller R ED Physician Levar Lopez HPI: 08/29 15:50 This 65 yrs old Female presents to ER via Ambulatory with complaints of cp Breathing Difficulty, Possible Kidney Stone. 15:50 The patient has shortness of breath at rest. Onset: The symptoms/episode began/occurred cp this morning. Duration: The symptoms are continuous, and are steadily getting worse. 15:50 Associated signs and symptoms: Pertinent positives: chest pain, headache and right cp flank pain. 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 - Social history:: Smoking status: Patient reports the use of cigarette tobacco products, smokes one-half pack cigarettes per day. ROS: 15:55 Constitutional: Negative for body aches, chills, fever, poor PO intake. cp 15:55 Eyes: Negative for injury, pain, redness, and discharge. cp 15:55 Cardiovascular: Positive for chest pain, Negative for edema, palpitations. 15:55 Respiratory: Positive for shortness of breath, at rest. Negative for cough, wheezing. 15:55 Abdomen/GI: Negative for abdominal pain, nausea, vomiting, and diarrhea, constipation, black/tarry stool, rectal bleeding. 15:55 Back: Positive for flank pain, on the right. 15:55 : Negative for urinary symptoms. 15:55 Skin: Negative for cellulitis, rash. 15:55 Neuro: Positive for headache, Negative for altered mental status, dizziness, speech changes, syncope, weakness. 15:55 All other systems are negative. Exam: 16:00 Constitutional: The patient appears in no acute distress, alert, awake, cp non-diaphoretic, non-toxic, well developed, well nourished, obese. 16:00 Head/Face: Normocephalic, atraumatic. cp 16:00 Eyes: Periorbital structures: appear normal, Conjunctiva: normal, no exudate, no injection, Sclera: no appreciated abnormality, Lids and lashes: appear normal, bilaterally. 16:00 ENT: External ear(s): are unremarkable, Nose: is normal, Mouth: Lips: moist, Oral mucosa: moist, Posterior pharynx: Airway: no evidence of obstruction, patent. 16:00 Neck: ROM/movement: is normal, is supple, without pain, no range of motions limitations. 16:00 Chest/axilla: Inspection: normal. 16:00 Cardiovascular: Rate: tachycardic, Rhythm: regular, Edema: is not appreciated, JVD: is not appreciated. 16:00 Respiratory: the patient does not display signs of respiratory distress, Respirations: normal, no use of accessory muscles, no retractions, labored breathing, is not present, intercostal retractions, are absent, shallow respirations, are not present, Breath sounds: are clear throughout, no decreased breath sounds, no stridor, no wheezing, stridor, is not appreciated, wheezing: is not appreciated. 16:00 Abdomen/GI: Inspection: abdomen appears normal, Bowel sounds: active, all quadrants, Palpation: abdomen is soft and non-tender, in all quadrants. 16:00 Back: pain, that is moderate, of the right mid back, ROM is painful. 16:00 Skin: cellulitis, is not appreciated, no rash present. 16:00 Neuro: Orientation: to person, place \\T\\ time. Mentation: is normal, Cerebellar function: is grossly normal, Motor: moves all fours, strength is normal, Sensation: is normal. 16:18 ECG was reviewed by the Attending Physician. cp Vital Signs: 15:06 Pulse 98; Pulse Ox 98% on R/A; tw2 15:27 Pulse 101; Resp 24; Temp 97.9(O); Pulse Ox 98% on R/A; Weight 92.08 kg (R); Height 5 tw2 ft. 4 in. (162.56 cm); Pain 7/10; 15:28 BP 182 / 111; tw2 16:45 BP 187 / 78; Pulse 91; Resp 18; Pulse Ox 95% ; sv 17:41 BP 176 / 65; Pulse 94; Resp 18; Pulse Ox 97% ; hb 18:49 BP 160 / 75; Pulse 103; Resp 23; Pulse Ox 96% ; hb 15:27 Body Mass Index 34.84 (92.08 kg, 162.56 cm) tw2 MDM: 15:39 Patient medically screened. cp 17:30 Data reviewed: vital signs, nurses notes, lab test result(s), EKG, radiologic studies, cp CT scan, plain films. 17:30 Test interpretation: by ED physician or midlevel provider: ECG, plain radiologic cp studies. Counseling: I had a detailed discussion with the patient and/or guardian regarding: the historical points, exam findings, and any diagnostic results supporting the discharge/admit diagnosis, the presence of at least one elevated blood pressure reading (>120/80) during this emergency department visit, lab results, radiology results, the need for further work-up and treatment in the hospital. Response to treatment: the patient's symptoms have markedly improved after treatment. Physician consultation: Saurabh Lerma MD was called at 17:30, was contacted at 17:30, regarding admission, to the telemetry unit. patient's condition. 08/29 15:43 Order name: Basic Metabolic Panel; Complete Time: 17:16 08/29 17:16 Interpretation: Normal except: GLUC 156; BUN 21; CRE 1.38; GFR 38. 08/29 15:43 Order name: CBC with Diff; Complete Time: 16:28 08/29 16:28 Interpretation: Normal except: RBC 5.26; HGB 16.6; HCT 49.7; UMA% 77.3; LYM% 14.8. 08/29 15:43 Order name: LFT's; Complete Time: 17:16 08/29 17:16 Interpretation: Normal except: AST 11; GLOB 4.0; A/G 0.9. cp 08/29 15:43 Order name: Magnesium; Complete Time: 17:16 08/29 15:43 Order name: NT PRO-BNP; Complete Time: 17:16 08/29 15:43 Order name: PT-INR; Complete Time: 17:16 08/29 15:43 Order name: Troponin (emerg Dept Use Only); Complete Time: 17:16 08/29 17:17 Interpretation: Reviewed. 08/29 15:43 Order name: Lipase; Complete Time: 17:16 08/29 15:43 Order name: Urine Microscopic Only 08/29 15:43 Order name: COVID-19 : Document "Date of Symptom Onset" if Symptomatic. 08/29 17:32 Order name: Urine Dipstick-Ancillary; Complete Time: 17:39 [facility] 08/29 17:36 Order name: Basic Metabolic Panel [facility] 08/29 17:36 Order name: Basic Metabolic Panel [facility] 08/29 17:36 Order name: CKMB Creatine Kinase MB [facility] 08/29 17:36 Order name: CKMB Creatine Kinase MB [facility] 08/29 17:36 Order name: CKMB Creatine Kinase MB [facility] 08/29 17:36 Order name: CKMB Creatine Kinase MB [facility] 08/29 17:36 Order name: Creatine Phosphokinase [facility] 08/29 17:36 Order name: Creatine Phosphokinase [facility] 08/29 17:36 Order name: Creatine Phosphokinase [facility] 08/29 17:36 Order name: Creatine Phosphokinase [facility] 08/29 17:36 Order name: Lipid Profile [facility] 08/29 17:36 Order name: Lipid Profile [facility] 08/29 17:36 Order name: Magnesium [facility] 08/29 17:36 Order name: Magnesium [facility] 08/29 17:36 Order name: Troponin I [facility] 08/29 17:36 Order name: Troponin I [facility] 08/29 17:36 Order name: Troponin I [facility] 08/29 17:36 Order name: Troponin I [facility] 08/29 18:31 Order name: Creatine Phosphokinase [facility] 08/29 15:43 Order name: XRAY Chest (1 view); Complete Time: 17:18 08/29 17:18 Interpretation: Report reviewed. 08/29 15:43 Order name: EKG; Complete Time: 15:44 08/29 15:43 Order name: Cardiac monitoring; Complete Time: 16:15 08/29 15:43 Order name: EKG - Nurse/Tech; Complete Time: 16:15 08/29 15:43 Order name: IV Saline Lock; Complete Time: 16:15 08/29 15:43 Order name: Labs collected and sent; Complete Time: 16:15 08/29 15:43 Order name: O2 Per Protocol; Complete Time: 16:15 08/29 15:43 Order name: O2 Sat Monitoring; Complete Time: 16:15 08/29 15:43 Order name: Urine Dipstick-Ancillary (obtain specimen); Complete Time: 17:47 08/29 15:43 Order name: CT Stone Protocol; Complete Time: 16:28 08/29 16:28 Interpretation: Report reviewed. 08/29 15:43 Order name: CT Head Brain wo Cont; Complete Time: 16:28 08/29 16:29 Interpretation: Report reviewed. 08/29 17:36 Order name: Heart Healthy EDPA 08/29 18:31 Order name: CKMB Creatine Kinase MB EDPA 08/29 18:44 Order name: SARS-COV-2 RT PCR EDPA 08/29 18:58 Order name: Hemoglobin A1c EDMS EC:18 Rate is 105 beats/min. Rhythm is regular. OR interval is prolonged at 220 msec. QRS cp interval is normal. QT interval is normal. T waves are Inverted in leads aVL, aVR. Interpreted by me. Reviewed by me. Administered Medications: 16:14 Drug: morphine 4 mg Route: IVP; Site: right antecubital; hb 17:44 Follow up: Response: No adverse reaction; Pain is decreased; RASS: Alert and Calm (0) sv 16:15 Drug: Zofran (Ondansetron) 4 mg Route: IVP; Site: right antecubital; hb 17:44 Follow up: Response: No adverse reaction sv 17:44 Not Given (Patient Refused; d/t stomach ulcers): Aspirin Chewable Tablet 324 mg PO sv once; 81 mg tablets x 4 17:44 Drug: NS 0.9% 500 ml Route: IV; Rate: 500 ml/hr; Site: right antecubital; sv 18:15 Follow up: Response: No adverse reaction; IV Status: Completed infusion; IV Intake: sv 500ml 17:45 Drug: hydrALAZINE 10 mg Route: IV; Rate: bolus; Site: right antecubital; sv 17:46 Follow up: Response: No adverse reaction; IV Status: Completed infusion; IV Intake: sv 0.5ml 17:51 Not Given (Physician Discretion): Nitroglycerin 0.4 mg Sublingual once sv 19:32 Not Given (Patient Refused): Nicotine 21 mg/24 hr 1 patches Transdermal once mg2 Disposition: 08/30 08:03 Co-signature as Attending Physician, Levar Lopez MD I agree with the assessment and kdr plan of care. Disposition: 08/29/20 19:34 Patient has left against medical advice. Impression: Chest pain, unspecified. - Patients states they are going to Home. - Condition is Stable. Follow up: Agustín Daniel MD; When: 1 - 2 days; Reason: If symptoms return, Further diagnostic work-up, Recheck today's complaints, Continuance of care, Re-evaluation by your physician. - Problem is new. - Symptoms have improved. Signatures: Dispatcher [employer] Ginger Cotton, RN RN sv Levar Lopez MD MD kdr Zeeshan Pepe, TREE GIRDLER-C TREE GIRDLER-Cla1 Matt Evans PA PA cp Carmen Owens, ZHOU RN cg Kaykay Gee RN RN Mariama Ryan RN RN tw2 Tomi Saba RN RN mg2 Corrections: (The following items were deleted from the chart) 08/29 15:27 15:25 PMHx: Nephrectomy - Right; tw2 tw2 17:46 16:51 Santoro ordered. cp sv 19:32 17:44 Hospitalization Ordered by Saurabh Lerma MD for Observation. Preliminary cg diagnosis is Chest pain, unspecified; Hypertensive heart disease. Bed requested for Telemetry/MedSurg (observation). Status is Observation. Condition is Stable. Problem is new. Symptoms have improved. cp 19:32 19:32 08/29/2020 17:44 Hospitalization Ordered by Saurabh Lerma MD for Observation. mg2 Preliminary diagnosis is Chest pain, unspecified; Hypertensive heart disease. Bed requested for Telemetry/MedSurg (observation). Status is Observation. Condition is Stable. Problem is new. Symptoms have improved. cg 19:34 19:32 08/29/2020 17:44 Hospitalization Ordered by Saurabh Lerma MD for Observation. la1 Preliminary diagnosis is Chest pain, unspecified; Hypertensive heart disease. Bed requested for Telemetry/MedSurg (observation). Status is Observation. Condition is Stable. Problem is new. Symptoms have improved. mg2 19:34 19:34 08/29/2020 19:34 Patients has left against medical advice. Impression: Chest la1 pain, unspecified. Patient states they are going to Home. Condition is Stable. Follow up: Agustín Daniel; When: 1 - 2 days; Reason: If symptoms return, Further diagnostic work-up, Recheck today's complaints, Continuance of care, Re-evaluation by your physician. Problem is new. Symptoms have improved. la1 08/30 02:52 08/29 17:30 Physician consultation: Dusty Herzog DO was called at 17:30, was contacted cp at 17:30, regarding admission, to the telemetry unit. patient's condition, cp
--- NOTE | 2020-08-29 17:44 | ER ---
Nurse's Notes [facility] Name: Zoe Jones Age: 65 yrs Sex: Female : 1955 Arrival Date: 08/29/2020 Time: 14:54 Bed 4 Private MD: Julio Miller R Diagnosis: Chest pain, unspecified Presentation: 08/29 15:21 Chief complaint: Patient states: the shortness of breath just started early today like tw2 someone is sitting on my chest and the top of my head feels like it is going to blow off and my right kidney feels like it is going to come out of my back, i just got off antibiotics for a uti Wednesday, i have never taken that antibiotic before but they said it could be a side effect of the medicine. Coronavirus screen: headache, shortness of breath, Client presents with at least one sign or symptom that may indicate coronavirus-19. Standard/surgical mask placed on the client. Provider contacted for isolation considerations. Ebola Screen: Patient denies travel to an Ebola-affected area in the 21 days before illness onset. Initial Sepsis Screen: Does the patient meet any 2 criteria? HR > 90 bpm. No. Patient's initial sepsis screen is negative. Does the patient have a suspected source of infection? No. Patient's initial sepsis screen is negative. Risk Assessment: Do you want to hurt yourself or someone else? Patient reports no desire to harm self or others. Onset of symptoms was August 29, 2020. 15:21 Method Of Arrival: Ambulatory tw2 15:21 Acuity: ZULEMA 2 tw2 Triage Assessment: 15:25 General: Appears in no apparent distress. obese, well groomed, Behavior is calm, tw2 cooperative, appropriate for age. Pain: Complains of pain in LEFT kidney pain. Respiratory: Reports shortness of breath at rest on exertion Onset: The symptoms/episode began/occurred this morning, the patient has mild shortness of breath. 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 - Social history:: Smoking status: Patient reports the use of cigarette tobacco products, smokes one-half pack cigarettes per day. Screenin:15 Abuse screen: Denies threats or abuse. Denies injuries from another. Nutritional hb screening: No deficits noted. Tuberculosis screening: No symptoms or risk factors identified. Fall Risk None identified. Assessment: 16:15 General: Appears in no apparent distress. Behavior is calm, cooperative. Pain: Pain hb currently is 7 out of 10 on a pain scale. Neuro: Level of Consciousness is awake, alert, obeys commands, Oriented to person, place, time, situation. Cardiovascular: Patient's skin is warm and dry. Rhythm is sinus tachycardia. Respiratory: Reports shortness of breath at rest on exertion cough that is non-productive, Respiratory effort is even, unlabored, Respiratory pattern is regular, symmetrical. GI: No signs and/or symptoms were reported involving the gastrointestinal system. : No signs and/or symptoms were reported regarding the genitourinary system. EENT: No signs and/or symptoms were reported regarding the EENT system. Derm: Skin is pink, warm \T\ dry. Musculoskeletal: Reports back pain. 17:30 Reassessment: Patient appears in no apparent distress at this time. Patient and/or sv family updated on plan of care and expected duration. Pain level reassessed. Patient is alert, oriented x 3, equal unlabored respirations, skin warm/dry/pink. Pt taken to the bathroom via wheelchair to obtain urine sample. 17:41 Reassessment: Patient appears in no apparent distress at this time. Patient and/or hb family updated on plan of care and expected duration. Pain level reassessed. Patient is alert, oriented x 3, equal unlabored respirations, skin warm/dry/pink. 18:48 Reassessment: Patient appears in no apparent distress at this time. Patient and/or hb family updated on plan of care and expected duration. Pain level reassessed. Patient is alert, oriented x 3, equal unlabored respirations, skin warm/dry/pink. 19:32 General: patient left AMA. Patient signed the AMA form. risk explained by the provider. mg2 . Vital Signs: 15:06 Pulse 98; Pulse Ox 98% on R/A; tw2 15:27 Pulse 101; Resp 24; Temp 97.9(O); Pulse Ox 98% on R/A; Weight 92.08 kg (R); Height 5 tw2 ft. 4 in. (162.56 cm); Pain 7/10; 15:28 BP 182 / 111; tw2 16:45 BP 187 / 78; Pulse 91; Resp 18; Pulse Ox 95% ; sv 17:41 BP 176 / 65; Pulse 94; Resp 18; Pulse Ox 97% ; hb 18:49 BP 160 / 75; Pulse 103; Resp 23; Pulse Ox 96% ; hb 15:27 Body Mass Index 34.84 (92.08 kg, 162.56 cm) tw2 ED Course: 14:54 Patient arrived in ED. mr 14:54 Julio Miller MD is Private Physician. mr 15:24 Triage completed. tw2 15:27 Arm band placed on. tw2 15:30 Matt Evans PA is PHCP. cp 15:31 Levar Lopez MD is Attending Physician. cp 15:59 CT Head Brain wo Cont In Process Unspecified. EDMS 16:01 CT Stone Protocol In Process Unspecified. EDMS 16:02 Kaykay Gee, ZHOU is Primary Nurse. hb 16:05 Inserted saline lock: 20 gauge in right antecubital area, using aseptic technique. sv Blood collected. Flushed right antecubital with 5 ml normal saline. 16:10 EKG done, by ED staff, reviewed by Matt DAMON. sv 16:10 COVID swab sent to lab. sv 16:15 Patient has correct armband on for positive identification. Bed in low position. Call hb light in reach. Side rails up X 1. 16:27 X-ray(s) taken. sv 16:30 XRAY Chest (1 view) In Process Unspecified. EDMS 17:43 Saurabh Lerma MD is Hospitalizing Provider. cp 19:32 No provider procedures requiring assistance completed. IV discontinued, intact, mg2 bleeding controlled, No redness/swelling at site. Pressure dressing applied. 19:34 Agustín Daniel MD is Referral Physician. la1 Administered Medications: 16:14 Drug: morphine 4 mg Route: IVP; Site: right antecubital; hb 17:44 Follow up: Response: No adverse reaction; Pain is decreased; RASS: Alert and Calm (0) sv 16:15 Drug: Zofran (Ondansetron) 4 mg Route: IVP; Site: right antecubital; hb 17:44 Follow up: Response: No adverse reaction sv 17:44 Not Given (Patient Refused; d/t stomach ulcers): Aspirin Chewable Tablet 324 mg PO sv once; 81 mg tablets x 4 17:44 Drug: NS 0.9% 500 ml Route: IV; Rate: 500 ml/hr; Site: right antecubital; sv 18:15 Follow up: Response: No adverse reaction; IV Status: Completed infusion; IV Intake: sv 500ml 17:45 Drug: hydrALAZINE 10 mg Route: IV; Rate: bolus; Site: right antecubital; sv 17:46 Follow up: Response: No adverse reaction; IV Status: Completed infusion; IV Intake: sv 0.5ml 17:51 Not Given (Physician Discretion): Nitroglycerin 0.4 mg Sublingual once sv 19:32 Not Given (Patient Refused): Nicotine 21 mg/24 hr 1 patches Transdermal once mg2 Intake: 17:46 IV: 1ml; Total: 1ml. sv 18:15 IV: 500ml; Total: 501ml. sv Outcome: 17:44 Decision to Hospitalize by Provider. cp 19:32 AMA AMA form signed mg2 19:32 Condition: stable 19:32 Discharge instructions given to patient, family, Demonstrated understanding of instructions. 19:32 Patient left the ED. mg2 19:34 Patient left the ED. la1 Signatures: Dispatcher [employer] Ginger Cotton RN ZHOU Eva Zhang Zeeshan, IRRIGATION SUPERVISOR-C IRRIGATION SUPERVISOR-Cla1 Matt Evans PA PA cp Kaykay Gee RN RN hb Wise, Tara, RN RN tw2 Tomi Saba RN RN mg2 Corrections: (The following items were deleted from the chart) 15:27 15:25 PMHx: Nephrectomy - Right; tw2 tw2
[2020-08-29] MEDS ORDERED: NA CHLORIDE 0.9% 500 ML ONE (17:51)
[2020-08-29] MEDS ORDERED: ASPIRIN 81 MG CHEWABLE TABLET ONE (17:51)
[2020-08-29] MEDS ORDERED: HYDRALAZINE HCL 20 MG/ML VIAL ONE (17:51)
[2020-08-29] MEDS ORDERED: ENOXAPARIN 40 MG/0.4 ML SQ SCH (18:00)
[2020-08-29] MEDS ORDERED: hydroCHLOROthiazide 25 MG TAB PO SCH (18:30)
[2020-08-29 18:31] LABS: CKMB Creatine Kinase MB 2.5 ng/mL (0.3-3.6)
[2020-08-29] MEDS ORDERED: carvediloL 25 MG TAB PO SCH (19:00)
[2020-08-29 19:44] VITALS: TEMP 97.9
[2020-08-29 19:50] VITALS: BP 160/75; O2SAT 96
--- NOTE | 2020-08-29 20:06 | P.PN ---
Date of Service: 08/29/20 ED provider called to admit patient for chest pain, hypertension. Hospitalist attending during patient's had placed orders, I went to evaluate patient for history and physical. When I arrived to the room patient stated that she wanted to leave against medical advise, patient reports that she does not do well in hospitals. Discussed extensively with patient, attempted to convince her to stay, patient did report that she was having chest pain earlier in the day and does have multiple risk factors. Patient reports that she would rather leave and call Cardiology in the morning, inform patient of risks inclusive of . Patient states If I go home, collapse and on my floor, that is on me. Patient appears to be of sound mind and competent judgment judgment. Patient reports that she lives with her son and will return to the emergency department immediately with any new signs or symptoms or worsening. Patient given follow up information for Cardiology Clinic and information regarding chest pain. Patient left AMA from the emergency department prior to admission.
[2020-08-29] MEDS ORDERED: INSULIN -REGULAR HUMAN 50 UNIT/0.5 ML ML SQ SCH (21:00)
[2020-08-30] MEDS ORDERED: lisinopriL 10 MG TAB PO SCH (09:00)
--- NOTE | 2020-08-31 07:27 | EKG ---
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
== END 2020-08-29 20:30 | disposition left against medical advice (07) ==
LOC: ER 14:52 → ERHOLD 17:32
PROVIDERS: ADMIT Internal Medicine Nephrology; ATTEND Internal Medicine Nephrology
DX: R07.9 Chest pain, unspecified (principal); Z53.29 Procedure and treatment not carried out because of patient's decision for other reasons; I10 Essential (primary) hypertension; F17.210 Nicotine dependence, cigarettes, uncomplicated; Z88.6 Allergy status to analgesic agent; Z91.041 Radiographic dye allergy status; Z85.53 Personal history of malignant neoplasm of renal pelvis; Z90.5 Acquired absence of kidney; Z90.49 Acquired absence of other specified parts of digestive tract; Z20.822 Contact with and (suspected) exposure to COVID-19
CPT/HCPCS: 96361; 93005; 85025; 80048; 36415; 83735; 82550; 85610; 80076; 81003; 83036; 84484; 82553; 83690; 83880; 70450; 76377; 74176; 71045; 96375; 96374; 99284; U0003; J0360; J7040; J2405; G0378

== ENCOUNTER 2020-11-24 10:45 | Emergency (ER) | payer OTHER ==
--- OUTSIDE RECORDS SUMMARY | 2020-11-24 10:48 | XMS REPORT | Continuity of Care Document ---
:1955 Author Organization [facility] t Address [address] [place] [address] Care Team Providers Name Role Phone Israel Phillips Attending Clinician Thompson MEDLEY, L Attending Clinician Problems Condition Condition Condition Status Onset Resolution Last Treating Co mments Source Name Details Category Date Date Treatment Clinician Date Coronary Coronary Problem Active [facility] arterioscl Arterioscl 09-23 Fa lianet erosis erosis 00:00: Practic 00 e Chronic Chronic Problem Active [facility] Kidney - Family disease Disease 00:00: Practic stage 3 Stage 3 00 e Kidney Kidney Problem Active 2019-05 [facility] stone Stone 1-03 Family 00:00: Practic 00 e Morbid Morbid Problem Active 2019-05 [facility] obesity Obesity 0-02 Family 00:00: Practic 00 e Chronic Chronic Problem Active 2019-05 [facility] back pain Back Pain 0-02 Fami ly 00:00: Practic 00 e Noncomplia Noncomplia Problem Active 2019-05 [facility] nce with nce with 0-02 Family treatment Treatment 00:00: Prac tic 00 e Body mass Body Mass Problem Active Martha margaret index 30+ Index 30+ 9-29 Fami ly - obesity - Obesity 00:00: Prac tic 00 e Hyperlipid Hyperlipid Problem Active [facility] emia emia 9- Family 00:00: Practic 00 e Essential Essential Problem Active Martha margaret hypertensi Hypertensi 9-02 Fa lianet on on 00:00: Practic 00 e Nicotine Nicotine Problem Active [facility] dependence Dependence 01-02 Fa lianet 00:00: Practic 00 e Carpal Carpal Diagnosis Active [facility] tunnel [facility] - syndrome, syndrome, Ming andrae right right l Outpat[facility] ent Clinics Pain in Pain in Diagnosis [facility] - right hand right hand Me moria l Outpati ent Clinics Carpal Problem Active 2019-07-06 Memor ia tunnel 22:48:14 l syndrome Carpal [place] n (disorder) tunnel syndrome (disorder) Active Problem 07/06/2019 [facility] Dizziness Problem Active 2019-07-06 Me moria (finding) 22:48:14 l [place] Dizziness (finding) Active Problem 07/06/2019 [facility] [...] dism (disorder) Active Problem 07/06/2019 [facility] Lumbar Problem Active 2019-07-06 Memor ia radiculopa 22:48:14 l thy Lumbar [place] (disorder) radiculopa thy (disorder) Active Problem 07/06/2019 [facility] 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 22:48:14 l (disorder) 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) Active Problem 07/06/2019 [facility] Renal cell Problem Active 2019-07-06 M emoria carcinoma 22:48:14 l (disorder) Renal Autumn nn cell carcinoma (disorder) Active Problem 07/06/2019 [facility] Transient Problem Active 2019-07-06 Al moria ischemic 22:48:14 l attack [place] (disorder) Transient ischemic attack (disorder) Active Problem 07/06/2019 [facility] Paresthesi Paresthesi Problem Active [facility] of skin a of skin [facility] Lesion of Lesion of Problem Active [facility] right right [facility] - median median [facility]oria nerve nerve l Outpati ent Clinics Allergies, Adverse Reactions, Alerts Allergy Allergy Status Severity Reaction(s) Onset Inactive Treating Comm ents Source Name Type Date Date Clinician Iodine Allergy Active [place] [facility] to Family substanc Practic e e SULFA Allergy Active Anaphylaxis Vill age (SULFONA to Family MIDE substanc Practic ANTIBIOT e e ICS) sulfa sulfa Active [facility] drugs drugs l [place] iodinate iodinate Active Memori a d d l radiocon radiocon [place] n trast trast dyes dyes codeine codeine Active Memoria l [place] Nitrofur Allergy Active Anaphylaxis Vi llage antoin to Family substanc Practic e e Iodine Adverse Active Info Not [facility] Reaction Available [facility] Social History Smoking Status Start Date Stop Date Source Heavy Tobacco Smoker [facility] Social History 2019-01-03 19:04:36 Ayana grimm Medications Ordered Filled Start Stop Current Ordering Indication Dosage Frequency Signature Comments Components Source Medication Medication Date Date Medication? Clinician (SIG) Name Name oxcarbazepi 2017-05 No 150 mg = 1 Memoria ne 150 MG 1-29 tab, PO, l Oral Tablet 17:17: Bedtime, # Nuno [Trileptal] 00 30 tab, 2 Refill(s), Pharmacy: [id number] pregabalin 2017-05 No 50 mg = 1 Me moria 50 MG Oral 0-18 cap, PO, l Capsule 16:28: Bedtime, # Herm grant [Lyrica] 00 14 cap, 0 Refill(s), other atorvastati 2017-05 Yes 10 mg = 1 M emoria n 10 mg 0-18 tab, PO, l oral tablet 16:28: Daily, # Remberto rmann 00 30 tab, 3 Refill(s), Pharmacy: [id number] Thyroid Thyroid Yes Ankit not [facility] defined [facility] ent Clinics Metoprolol Metoprolol Yes Ankit not [facility] Succinate Succinate [place] defined [facility] - ER ER [facility] ent [facility] metoprolol metoprolol No metoprolol [facility] succinate succinate succinate Family ER 50 mg ER 50 mg ER 50 mg Pra ctic tablet,exte tablet,exte tablet,ext e nded nded ended release 24 release 24 release 24 hr TAKE 1 hr TAKE 1 hr TAKE 1 TABLET BY TABLET BY TABLET BY MOUTH ONCE MOUTH ONCE MOUTH ONCE DAILY IN DAILY IN DAILY IN THE EVENING THE EVENING THE (ADD ON (ADD ON EVENING WITH THE WITH THE (ADD ON 100 MG) 100 MG) WITH THE 100 MG) GENERAL OFFICE ASSOCIATE Thyroid GENERAL OFFICE ASSOCIATE Thyroid No GENERAL OFFICE ASSOCIATE Thyroid [facility] 25 mg daily 25 mg daily 25 mg Family daily Practic e simvastatin simvastatin No simvastati [facility] 20 mg 20 mg n 20 mg Family tablet TAKE tablet TAKE tablet Practic 1 TABLET BY 1 TABLET BY TAKE 1 e MOUTH ONCE MOUTH ONCE TABLET BY DAILY IN DAILY IN MOUTH ONCE THE EVENING THE EVENING DAILY IN THE EVENING Tylenol 325 Tylenol 325 No 1capsul Tylenol [facility] mg capsule mg capsule e(s) 325 mg F amily Take 1 Take 1 capsule Practic capsule as capsule as Take 1 e needed by needed by capsule as oral route. oral route. needed by oral route. ibuprofen ibuprofen No 1 ibuprofen [facility] 800 mg 800 mg 800 mg Family tablet Take tablet Take tablet Practic 1 tablet as 1 tablet as Take 1 e needed by needed by tablet as oral route oral route needed by for 6 days. for 6 days. oral route for 6 days. metoprolol metoprolol No metoprolol [facility] succinate succinate succinate [facility] ER 100 mg ER 100 mg ER 100 mg Practic tablet,exte tablet,exte tablet,ext e nded nded ended release 24 release 24 release 24 hr TAKE 1 hr TAKE 1 hr TAKE 1 TABLET BY TABLET BY TABLET BY MOUTH ONCE MOUTH ONCE MOUTH ONCE DAILY DAILY DAILY lipitor lipitor Yes [facility] ent Clinics Immunizations Ordered Immunization Filled Immunization Date Status Commen ts Source Name Name COVID-19, mRNA, COVID-19, mRNA, 2020-04-[address] [facility] Family LNP-S, PF, 100 LNP-S, PF, 100 00:00:00 Practi ce mcg/0.5 mL dose mcg/0.5 mL dose pneumococcal pneumococcal 2015-05-03 Completed [facility] polysaccharide PPV23 polysaccharide PPV23 00:00:00 Practice Vital Signs Vital Name Observation Time Observation Value Comments Source BP Diastolic 2020-09-23 00:00:00 77 mm[Hg] [facility] Height 2020-09-23 00:00:00 63 [in_i] [facility] BMI (Body Mass 2020-09-23 00:00:00 35.8 kg/m2 [facility] Family Index) Practice BP Systolic 2020-09-23 00:00:00 170 mm[Hg] [facility] Body Weight 2020-09-23 00:00:00 202 [lb_av] [facility] BP Diastolic 2020-05-14 00:00:00 72 mm[Hg] [facility] Height 2020-05-14 00:00:00 63 [in_i] [facility] BMI (Body Mass 2020-05-14 00:00:00 35.8 kg/m2 [facility] Index) Practice BP Systolic 2020-05-14 00:00:00 130 mm[Hg] [facility] Body Weight 2020-05-14 00:00:00 202 [lb_av] [facility] BP Diastolic 2020-03-05 00:00:00 72 mm[Hg] [facility] Height 2020-03-05 00:00:00 63 [in_i] [facility] BMI (Body Mass 2020-03-05 00:00:00 35.8 kg/m2 [facility] Index) Practice BP Systolic 2020-03-05 00:00:00 137 mm[Hg] [facility] Body Weight 2020-03-05 00:00:00 202 [lb_av] [facility] Height 2020-02-02 00:00:00 63 [in_i] [facility] BMI (Body Mass 2020-02-02 00:00:00 35.4 kg/m2 [facility] Index) Practice Body Weight 2020-02-02 00:00:00 200 [lb_av] [facility] Height 2020-01-03 00:00:00 63 [in_i] [facility] BMI (Body Mass 2020-01-03 00:00:00 36.1 kg/m2 [facility] Index) Practice Body Weight 2020-01-03 00:00:00 204 [lb_av] [facility] Systolic (mm Hg) 2019-01-03 18:51:00 Ming mackay [place] Diastolic (mm Hg) 2019-01-03 18:51:00 Mem orial [place] Heart Rate 2019-01-03 18:51:00 [facility] Nuno Respitory Rate 2019-01-03 18:51:00 Rianaori al Nuno Height 2019-01-03 18:51:00 157.48 cm [facility] [place] Weight 2019-01-03 18:51:00 [facility] [place] BMI Calculated 2019-01-03 18:51:00 Memori al [place] Weight 2018-11-01 21:09:00 [facility] Nuno BMI Calculated 2018-11-01 21:09:00 Memori al Nuno Systolic (mm Hg) 2018-11-01 21:09:00 Ming rial Nuno Diastolic (mm Hg) 2018-11-01 21:09:00 Mem orial [place] Respitory Rate 2018-11-01 21:09:00 Memori al Nuno Heart Rate 2018-11-01 21:09:00 [facility] [place] Height 2018-11-01 21:09:00 160.02 cm [facility] [place] Weight 2018-09-29 18:49:00 [facility] N[facility] BMI Calculated 2018-09-29 18:49:00 Memori al Nuno Height 2018-09-29 18:49:00 157.48 cm [facility] [place] Heart Rate 2018-09-29 18:49:00 [facility] [address] Respitory Rate 2018-09-29 18:49:00 Memori al [place] Systolic (mm Hg) 2018-09-29 18:49:00 Ming rial Nuno Diastolic (mm Hg) 2018-09-29 18:49:00 Mem orial Nuno BMI Calculated 2018-03-31 16:57:00 Memori al [place] Weight 2018-03-31 16:57:00 [facility] [address] Height 2018-03-31 16:57:00 160.02 cm [facility] [place] Heart Rate 2018-03-31 16:57:00 [facility] [place] Systolic (mm Hg) 2018-03-31 16:57:00 Ming rial Nuno Diastolic (mm Hg) 2018-03-31 16:57:00 Mem orial Nuno Height 2018-02-17 16:08:00 162.56 cm [facility] [place] Weight 2018-02-17 16:08:00 [facility] [address] BMI Calculated 2018-02-17 16:08:00 Memori al Nuno Respitory Rate 2018-02-17 16:08:00 Memori al Nuno Systolic (mm Hg) 2018-02-17 16:08:00 Ming rial [place] Diastolic (mm Hg) 2018-02-17 16:08:00 Mem orial [place] Heart Rate 2018-02-17 16:08:00 [facility] Procedures Procedure Date / Time Performing Clinician Source Performed Excision of Left Kidney 2008-05-03 00:00:00 [facility] 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 Tendon Sheath of Practi ce Hand Bilateral Replacement of [facility] Knee Joints Practice Appendectomy [facility] Hysterectomy (Total) [facility] Fam jose l Practice Cholecystectomy [facility] Repair of Right Cleft Lip [facility] Family with Rotation Advancement Practi ce Flap Screening for Osteoporosis [facility] Screening [facility] Colonoscopy with Biopsy [facility] Nephrectomy [facility] Plan of Care Planned Activity Planned Date Details Comments Source Future Appointment 2021-01-07 13:00:00 [facility] [address] Practice [address], [place] [address] Future Appointment 2020-12-24 00:00:00 [facility] [address] Practice [address], [place] [address] Encounters Start End Encounter Admission Attending Care Care Encounter Source Date/Time Date/Time Type Type Clinicians Facility Department ID 2020-09-23 2020-09-23 [facility] - [id number] [facility] ill[facility] 00:00:00 00:00:00 Vishal Lundy Famil y GENERAL OFFICE ASSOCIATE: [address] - [address] Gamingy, [email or web address] Suite [facility], [facility] [address] , Ph. 2020-05-14 2020-05-14 [facility] [place] - [id number] V illage 00:00:00 00:00:00 Vishal Lundy y GENERAL OFFICE ASSOCIATE: [address] Medical - Pract ic [address] Gamingy, [email or web address] e Suite [facility], [facility] [address] , Ph. 2020-03-05 2020-03-05 [facility] [place] - [id number] V illage 00:00:00 00:00:00 Vishal Lundy y GENERAL OFFICE ASSOCIATE: [address] Medical - Pract ic [address], [email or web address] e Suite [facility], [facility] [address] , Ph. 2020-02-02 2020-02-02 [facility] [place] - [id number] V illage 00:00:00 00:00:00 Vishal Lundy Famil y GENERAL OFFICE ASSOCIATE: [address] - Pract [address] Quintana, [email or web address] e [address], [facility], [facility] [address] , Ph. 2020-01-03 2020-01-03 Stormy [place] - [id number] V illage 00:00:00 00:00:00 Vishal Lundy Famil y GENERAL OFFICE ASSOCIATE: [address] Medical - Pract ic [address] Quintana, [email or web address] Suite [facility], [facility], [facility] [address] , Ph. 2019-07-04 2019-07-04 Outpatient CRISTA PhillipsMISCHER MHMISCHER [id number] 13:15:00 13:15:00 Jose 07 [facility] 2019-01-03 2019-01-03 Outpatient CRISTA PhillipsMISCHER MHMISCHER [id number] 13:45:00 23:59:59 Jose [facility] 2018-12-05 2018-12-05 Office [facility] [id number] 14:15:25 14:54:02 Visit [facility] [id number] Surgical .[id number] Specialti [id number] 198 [place] 2018-11-01 2018-11-01 Outpatient CRISTA PhillipsMISCHER MHMISCHER [id number] 15:30:00 23:59:59 Jose [facility] 2018-09-29 2018-09-29 Outpatient CRISTA PhillipsMISCHER MHMISCHER [id number] 13:15:00 23:59:59 Jose [facility] 2018-08-22 2018-08-22 [facility] [id number] 08:00:00 08:00:00 [facility] Clin[facility] 2018-05-12 2018-05-12 Outpatient CRISTA PhillipsMISCHER MHMISCHER [id number] 10:00:00 10:00:00 Jose 03 [facility] 2018-05-07 2018-05-08 Outpatient MHMISCHER MHMISCHER [id number] 10:24:00 23:59:59 00 2018-03-31 2018-03-31 Outpatient Jacqueline [facility] [id number] 10:00:00 23:59:59 Jose 02 [place] 2018-02-17 2018-02-17 Outpatient Jacqueline [facility] [id number] 11:30:00 23:59:59 Joseshyann Wood Results This patient has no known results.
--- NOTE | 2020-11-24 13:08 | RAD REPORT ---
EXAM DESCRIPTION: US - Extremity Venous Uni Ltd - 11/24/2020 1:02 pm CLINICAL HISTORY: Swelling COMPARISON: None. TECHNIQUE: Real-time sonographic evaluation of the left lower extremity deep venous system was perfo rmed. FINDINGS: Normal compressibility, flow augmentation, phasic flow and spontaneous flow is identified in the left lower extremity deep venous system. No intraluminal filling defects seen. IMPRESSION: No DVT in the left lower extremity.
[2020-11-24] MEDS ORDERED: FENTANYL CITR 100 MCG/2 ML ONE (13:56)
[2020-11-24] MEDS ORDERED: ONDANSETRON 4 MG (ODT) TAB ONE (13:56)
--- NOTE | 2020-11-26 16:32 | ER ---
Nurse's Notes [facility] Name: Zoe Jones Age: 65 yrs Sex: Female : 1955 Arrival Date: 11/24/2020 Time: 10:49 Bed 6 Private MD: Diagnosis: Pain in left leg Presentation: 11/24 12:09 Chief complaint: Patient states: has had swelling in left foot and leg for a few weeks, iw then recently noticed a knot in her left groin , was supposed to have an US done but is having issues with her insurance. Coronavirus screen: At this time, the client does not indicate any symptoms associated with coronavirus-19. Ebola Screen: Patient negative for fever greater than or equal to 101.5 degrees Fahrenheit, and additional compatible Ebola Virus Disease symptoms Patient denies exposure to infectious person. Patient denies travel to an Ebola-affected area in the 21 days before illness onset. No symptoms or risks identified at this time. Initial Sepsis Screen: Does the patient meet any 2 criteria? No. Patient's initial sepsis screen is negative. Does the patient have a suspected source of infection? No. Patient's initial sepsis screen is negative. Risk Assessment: Do you want to hurt yourself or someone else? Patient reports no desire to harm self or others. Onset of symptoms was November 09, 2020. 12:09 Method Of Arrival: Ambulatory iw 12:09 Acuity: ZULEMA 3 iw Historical: - Allergies: 12:12 Codeine; iw 12:12 Iodine; iw 12:12 Sulfa (Sulfonamide Antibiotics); iw - Home Meds: 12:12 Toprol XL 100 mg Oral Tb24 1 tab once daily [Active]; Simvastatin Oral [Active]; iw - PMHx: 12:12 Hypertension; renal cancer; iw - PSHx: 12:12 Cholecystectomy; hysterectomy; right shoulder; right ovary; kidney; iw - Immunization history:: Client reports receiving the 2nd dose of the Covid vaccine. - Social history:: Smoking status: Patient reports the use of cigarette tobacco products, smokes one pack cigarettes per day. Screenin:53 Abuse screen: Denies threats or abuse. Denies injuries from another. Nutritional kg screening: No deficits noted. Tuberculosis screening: No symptoms or risk factors identified. Fall Risk None identified. No fall in past 12 months (0 pts). No secondary diagnosis (0 pts). No IV (0 pts). Ambulatory Aid- None/Bed Rest/Nurse Assist (0 pts). Gait- Normal/Bed Rest/Wheelchair (0 pts) Mental Status- Oriented to own ability (0 pts). Total Silva Fall Scale indicates No Risk (0-24 pts). Assessment: 13:02 General: Appears in no apparent distress. Behavior is calm, cooperative, appropriate kg for age, quiet. Pain: Complains of pain in left femoral area Pain radiates to lateral aspect of left thigh, left hamstring, medial aspect of left thigh and left quadriceps Pain currently is 10 out of 10 on a pain scale. at worst was 10 out of 10 on a pain scale. Quality of pain is described as burning, aching, sharp, Pain began years ago. Neuro: No deficits noted. Cardiovascular: No deficits noted. Heart tones S1 S2. Respiratory: Airway is patent Trachea midline Respiratory effort is even, unlabored, Respiratory pattern is regular, symmetrical, Breath sounds are clear bilaterally. GI: No deficits noted. : No deficits noted. EENT: No deficits noted. Derm: No deficits noted. Musculoskeletal: No deficits noted. Vital Signs: 12:09 BP 105 / 74; Pulse 76; Resp 16; Temp 98.0; Pulse Ox 98% on R/A; Weight 91.63 kg; Height iw 5 ft. 3 in. (160.02 cm); Pain 10/10; 12:30 BP 145 / 82; Pulse 68; Resp 20; Pulse Ox 100% ; kg 13:28 BP 175 / 55; Pulse 69; Resp 20; Pulse Ox 99% on R/A; kg 14:00 BP 166 / 62; Pulse 68; Resp 20; Pulse Ox 99% on R/A; kg 12:09 Body Mass Index 35.78 (91.63 kg, 160.02 cm) iw ED Course: 10:49 Patient arrived in ED. ds1 12:12 Triage completed. iw 12:19 Kenia Pickard FNP-C [facility]. kb 12:19 Damaris Cottrell MD is Attending Physician. kb 12:49 Farzana Alvarez, ZHOU is Primary Nurse. kg 12:53 Patient has correct armband on for positive identification. Call light in reach. kg 12:54 Arm band placed on right wrist. kg 13:02 US Extremity Venous Unilateral Ltd In Process Unspecified. EDMS 13:28 Farzana Alvarez, RN is Primary Nurse. kg 14:27 No provider procedures requiring assistance completed. Patient did not have IV access kg during this emergency room visit. Administered Medications: 13:37 Drug: fentaNYL (PF) 50 mcg Route: IM; Site: right deltoid; kg 14:27 Follow up: Response: No adverse reaction; Pain is decreased kg 13:37 Drug: Ondansetron 4 mg Route: PO; kg 14:27 Follow up: Response: No adverse reaction; Marked relief of symptoms kg Outcome: 14:21 Discharge ordered by . kb 14:27 Discharged to home ambulatory. kg 14:27 Condition: good 14:27 Discharge instructions given to patient, Instructed on discharge instructions, follow up and referral plans. Demonstrated understanding of instructions, follow-up care, medications, Prescriptions given X 2. 14:32 Patient left the ED. kg Signatures: Dispatcher [employer] EDMS Kenia Pickard, CINTIA INFORMATION AND DATA ARCHITECT ANALYST-Anaid Carbone ds1 Ethel Hidalgo, ZHOU RN iw Farzana Alvarez, RN RN kg
--- NOTE | 2020-11-26 16:32 | EDPHYS ---
Physician Documentation [facility] Name: Zoe Jones Age: 65 yrs Sex: Female : 1955 Arrival Date: 11/24/2020 Time: 10:49 Bed 6 Private MD: ED Physician Damaris Cottrell HPI: 11/24 15:04 This 65 yrs old Female presents to ER via Ambulatory with complaints of Leg kb Pain, Ankle Swelling. 15:04 The patient presents with pain, tenderness. The complaints affect the left quadriceps. kb Context: The problem was sustained at home, resulted from an unknown cause, the patient can fully bear weight, the patient is able to ambulate. Onset: The symptoms/episode began/occurred 4 day(s) ago. Modifying factors: The symptoms are alleviated by nothing. the symptoms are aggravated by weight bearing. Associated signs and symptoms: The patient has no apparent associated signs or symptoms. Treatment prior to arrival includes: no previous treatment. Severity of symptoms: At their worst the symptoms were moderate, in the emergency department the symptoms are unchanged. The patient has not experienced similar symptoms in the past. The patient has not recently seen a physician. Pt reports pain to left thigh that started 4 days ago. Denies injury or trauma. States she does have intermittent swelling to left ankle and is supposed to have an US done, but is still waiting for insurance approval. Historical: - Allergies: 12:12 Codeine; iw 12:12 Iodine; iw 12:12 Sulfa (Sulfonamide Antibiotics); iw - Home Meds: 12:12 Toprol XL 100 mg Oral Tb24 1 tab once daily [Active]; Simvastatin Oral [Active]; iw - PMHx: 12:12 Hypertension; renal cancer; iw - PSHx: 12:12 Cholecystectomy; hysterectomy; right shoulder; right ovary; kidney; iw - Immunization history:: Client reports receiving the 2nd dose of the Covid vaccine. - Social history:: Smoking status: Patient reports the use of cigarette tobacco products, smokes one pack cigarettes per day. ROS: 15:02 Constitutional: Negative for fever, chills, and weight loss. kb 15:02 MS/extremity: Positive for pain, of the left quadriceps. 15:02 All other systems are negative. Exam: 15:03 Constitutional: This is a well developed, well nourished patient who is awake, alert, kb and in no acute distress. Head/Face: Normocephalic, atraumatic. ENT: Moist Mucous membranes Respiratory: Respirations even and unlabored. No increased work of breathing, no retractions or nasal flaring. Skin: Warm, dry with normal turgor. Normal color. Neuro: Awake and alert, GCS 15, oriented to person, place, time, and situation. Moves all extremities. Normal gait. Psych: Awake, alert, with orientation to person, place and time. Behavior, mood, and affect are within normal limits. 15:03 Musculoskeletal/extremity: Extremities: grossly normal except: noted in the left quadriceps: pain, swelling, ROM: intact in all extremities, Circulation is intact in all extremities. Sensation intact. Weight bearing: able to fully bear weight. Vital Signs: 12:09 BP 105 / 74; Pulse 76; Resp 16; Temp 98.0; Pulse Ox 98% on R/A; Weight 91.63 kg; Height iw 5 ft. 3 in. (160.02 cm); Pain 10/10; 12:30 BP 145 / 82; Pulse 68; Resp 20; Pulse Ox 100% ; kg 13:28 BP 175 / 55; Pulse 69; Resp 20; Pulse Ox 99% on R/A; kg 14:00 BP 166 / 62; Pulse 68; Resp 20; Pulse Ox 99% on R/A; kg 12:09 Body Mass Index 35.78 (91.63 kg, 160.02 cm) iw MDM: 12:19 Patient medically screened. kb 15:02 Data reviewed: vital signs, nurses notes. Data interpreted: Pulse oximetry: on room air kb is 99 %. Interpretation: normal. Counseling: I had a detailed discussion with the patient and/or guardian regarding: the historical points, exam findings, and any diagnostic results supporting the discharge/admit diagnosis, radiology results, the need for outpatient follow up, a family practitioner, to return to the emergency department if symptoms worsen or persist or if there are any questions or concerns that arise at home. 11/24 12:20 Order name: US Extremity Venous Unilateral Ltd; Complete Time: 13:09 kb Administered Medications: 13:37 Drug: fentaNYL (PF) 50 mcg Route: IM; Site: right deltoid; kg 14:27 Follow up: Response: No adverse reaction; Pain is decreased kg 13:37 Drug: Ondansetron 4 mg Route: PO; kg 14:27 Follow up: Response: No adverse reaction; Marked relief of symptoms kg Disposition: 17:13 Co-signature as Attending Physician, Damaris Cottrell MD. ma2 Disposition Summary: 11/24/20 14:21 Discharge Ordered Location: Home kb Condition: Stable kb Diagnosis - Pain in left leg kb Followup: kb - With: Emergency Department - When: As needed - Reason: Worsening of condition Followup: kb - With: Private Physician - When: 2 - 3 days - Reason: Recheck today's complaints, Continuance of care, Re-evaluation by your physician Discharge Instructions: - Discharge Summary Sheet kb - Musculoskeletal Pain kb Forms: - Medication Reconciliation Form kb - Thank You Letter kb - Antibiotic Education kb - Prescription Opioid Use kb Prescriptions: - Ibuprofen 800 mg Oral Tablet - take 1 tablet by ORAL route every 8 hours As needed take with food; 30 tablet; kb Refills: 0, Product Selection Permitted - Cyclobenzaprine 10 mg Oral Tablet - take 1 tablet by ORAL route every 8 hours As needed; 21 tablet; Refills: 0, kb Product Selection Permitted Signatures: Dispatcher [employer] Kenia Phillips, CRUMB PACKER-C CALOS-Ethel Palomino, RN ZHOU iw Damaris Cottrell MD MD ma2 Farzana Alvarez RN RN kg
[2020-11-26 17:41] VITALS: TEMP 98
[2020-11-26 17:44] VITALS: O2SAT 99
[2020-11-26 17:45] VITALS: BP 166/62
== END 2020-11-24 14:32 | disposition home or self-care (01) ==
LOC: ER 10:45
DX: M79.605 Pain in left leg (principal); I10 Essential (primary) hypertension; F17.210 Nicotine dependence, cigarettes, uncomplicated; Z88.2 Allergy status to sulfonamides; Z88.5 Allergy status to narcotic agent; Z91.048 Other nonmedicinal substance allergy status
CPT/HCPCS: 93971; 96372; 99283; J3010

== ENCOUNTER 2024-11-29 10:17 | Inpatient (IN) | payer OTHER ==
--- OUTSIDE RECORDS SUMMARY | 2024-11-29 10:26 | XMS REPORT | Continuity of Care Document ---
Author Name Unknown Address [address] [facility] [address] [place] [address] [facility] Address [address] [facility] [place] [address] Care Team Providers Care Pharmacy Resource Tech Name Role Phone Alicia Walker Primary Care Physician [phone] RUPALI PATEL Attending Clinician UnavailRUPALI Perrin Attending Clinician UnavailRUBENS Yepez Attending Clinician RUBENS Pantoja Attending Clinician Unavailable TERELL SÁNCHEZ Attending Clinician Unavailable TERELL SÁNCHEZ Attending Clinician Unavailable Doctor Unassigned, [place] Attending Clinician SENTHIL Chakraborty Attending Clinician Unavailable Juanito MEDLEY, Hamzah Attending Clinician +[phone] Rupali Patel MD Attending Clinician [phone] DAMIAN ORTIZ Attending Clinician Unavailable DAMIAN ORTIZ Attending Clinician Unavailable Evaristo Roblero MD Attending Clinician + Damian Ortiz MD Attending Clinician + [phone] SYDNEY VAUGHN Attending Clinician Unavailable SYDNEY VAUGHN Attending Clinician Unavailable Sydney Vaughn PA-C Attending Clinician +[phone] HAMZAH SOLOMON Attending Clinician Unavailable Deandre Garland MD Attending Clinician + KAITLIN STEVENS Attending Clinician UnavailKAITLIN Aldridge Attending Clinician Unavailstephen scherer Doctor Unassigned, [place] Attending Clinician U navailable DEANDRE GARLAND Attending Clinician Unavailable Deandre Garland MD Attending Clinician + [facility] Attending Clinician UnavailHamzah Schwab MD Attending Clinician +[phone] Kaitlin Stevens MD Attending Clinician + [phone] [facility] Attending Clinician UnavailKirstin Cisneros MD Attending Clinician [phone] KIRSTIN SMITH Attending Clinician Unavailable Jefferson Beth MD Attending Clinician + [phone] ELIZABETH LEVY Attending Clinician Unavailable Rupali Patel MD Attending Clinician + [phone] SOTERO MARSH Attending Clinician Un available TERRA PRADO Attending Clinician Unav ailVIVEK Han Attending Clinician UnavaDARIAN Connor Attending Clinician Unavailable HAL OH Attending Clinician Estefani vailable Miller_S_PATEL Attending Clinician Unavailable Ajibade_O_AH Attending Clinician Unavailable KETURAH GONZALEZ Attending Clinician Unavailable Ige-Od[place]_J_PATEL Attending Clinician Unavailable RUPALI PATEL Admitting Clinician UnavailTERELL Kat Admitting Clinician Unavailable Rupali Patel MD Admitting Clinician +[phone] EVARISTO ROBLERO Admitting Clinician Unavailable DEANDRE GARLAND Admitting Clinician Unavailable SOTERO MARSH Admitting Clinician Un available RUBENS HATCH Admitting Clinician VIVEK [place] Admitting Clinician NIRU Quinn Admitting Clinician Mary perez Miller_S_AH Admitting Clinician Unavailable Ajibade_O_AH Admitting Clinician Unavailable Ige-Odun[place]_J_AH Admitting Clinician Unavailable Payers Payer Name Policy Type Policy Number Effective Date Expirati on Date Source [employer] [place] [employer] [employer] [id number] 2024 00:00:00 [employer] [place] [id number] 2021 00:00:00 MEDICARE PART A \\T\\ B [id number] 2015 00:00:00 [employer] GOLD PLS HMO [id number] 2024 00:00:00 2024 00:00:00 [place]MEDICARE REPLACEMENT/ADVAN TAGE - HMO) [id number] 2019 00:00:00 Problems Condition Name Condition Details Condition Category Status Onset Date Resolution Date Last Treatment Date Treating Clinician Comments Source Pre-op testing Pre-op testing Disease Active 08-24 00:00: 00 [facility] Arthropath y of right shoulder Arthropath y of right shoulder Disease Active 08-24 00:00: 00 [facility] Preop testing Preop testing Disease Active 05-25 00:00: 00 [facility] Primary osteoarthr itis of right shoulder Primary osteoarthr itis of right shoulder Disease Active 05-25 00:00: 00 [facility] DWIGHT (obstructi ve sleep apnea) DWIGHT (obstructi ve sleep apnea) Disease Active 05-10 00:00: 00 [facility] Preop cardiovasc ular exam Preop cardiovasc ular exam Disease Active 05-10 00:00: 00 [facility] Stage 3a chronic kidney disease Stage 3a chronic kidney disease Disease Active 10-30 00:00: 00 [facility] Snores Snores Disease Active 10-30 00:00: 00 [facility] Cigarette smoker Cigarette smoker Disease Active 10-30 00:00: 00 [facility] GERD without esophagiti s GERD without esophagiti s Disease Active 10-29 00:00: 00 [facility] Chronic gastric ulcer without bleeding or perforatio n Chronic gastric ulcer without bleeding or perforatio n Disease Active 10-29 00:00: 00 [facility] Rheumatoid arthritis involving multiple joints Rheumatoid arthritis involving multiple joints Disease Active 10-29 00:00: 00 [facility] Mixed dyslipidem ia Mixed dyslipidem ia Disease Active 10-29 00:00: 00 [facility] Acquired hypothyroi dism Acquired hypothyroi dism Disease Active 10-29 00:00: 00 [facility] Asymptomat ic hypertensi ve urgency Asymptomat ic hypertensi ve urgency Disease Active 10-29 00:00: 00 [facility] Peripheral arterial disease with history of revascular ization Peripheral arterial disease with history of revascular ization Disease Active 10-29 00:00: 00 [facility] Aortic bifurcatio n syndrome, chronic Aortic bifurcatio n syndrome, chronic Disease Active 10-29 00:00: 00 [facility] Clear cell renal cell carcinoma, left Clear cell renal cell carcinoma, left Disease Active 10-29 00:00: 00 [facility] Encounter for screening mammogram for malignant neoplasm of breast Encounter for screening mammogram for malignant neoplasm of breast Disease Active 10-29 00:00: 00 [facility] Nicotine dependence with current use Nicotine dependence with current use Disease Active 10-29 00:00: 00 [facility] Post-opera tive state Post-opera tive state Disease Active 4-13 00:00: 00 [facility] Claudicati on Claudicati on Disease Active 3-07 00:00: 00 [facility] PAOD (periphera l arterial occlusive disease) PAOD (periphera l arterial occlusive disease) Disease Active 07-02 00:00: 00 [facility] Right foot pain Right foot pain Disease Active 07-02 00:00: 00 [facility] Coronary arterioscl erosis Coronary Arterioscl erosis Problem Active 09-23 00:00: 00 [facility] Chronic kidney disease stage 3 Chronic Kidney Disease Stage 3 Problem Active 09-23 00:00: 00 [facility] Kidney stone Kidney Stone Problem Active 2019-05 00:00: 00 [facility] Morbid obesity Morbid Obesity Problem Active 2019-05 00:00: 00 [facility] Chronic back pain Chronic Back Pain Problem Active 2019-05 00:00: 00 [facility] Noncomplia nce with treatment Noncomplia nce with Treatment Problem Active 2019-05 00:00: 00 [facility] Body mass index 30+ - obesity Body Mass Index 30+ - Obesity Problem Active 01-29 00:00: 00 [facility] Hyperlipid emia Hyperlipid emia Problem Active 01-02 00:00: 00 [facility] Essential hypertensi on Essential Hypertensi on Problem Active 01-02 00:00: 00 [facility] Nicotine dependence Nicotine Dependence Problem Active 01-02 00:00: 00 [facility] Obesity (BMI 30-39.9) Obesity (BMI 30-39.9) Disease Active 11-21 00:00: 00 [facility] Carpal tunnel syndrome of right wrist Carpal tunnel syndrome of right wrist Disease Active 11-08 00:00: 00 Overview: Formattin g of this note might be different from the original. Added automatic ally from request for surgery [id number] [facility] Paresthesi a of skin Paresthesi a of skin Problem Active [facility] Lesion of right median nerve Lesion of right median nerve Problem Active [facility] Carpal tunnel syndrome, right Carpal tunnel syndrome, right Diagnosis Active [facility] Pain in joint of right hand Pain in joint of right hand Diagnosis Active [facility] Allergies, Adverse Reactions, Alerts Allergy Name Allergy Type Status Severity Reaction(s) Onset Date Inactive Date Treating Clinician Comments Source HYDROCOD ONE DRUG INGREDI Active Med Other-Cmnt 07-27 00:00: 00 [facility] Hydrocod one Propensi ty to adverse reaction s to drug Active Other - See comments 07-27 00:00: 00 Headache and vomiting [facility] KETOROLA C DRUG INGREDI Active Rash 05-25 00:00: 00 [facility] Ketorola c Propensi ty to adverse reaction s Active Rash 05-25 00:00: 00 Rash, Tongue swelling [facility] CARVEDIL OL DRUG INGREDI Active Other-Cmnt 11-25 00:00: 00 [facility] Carvedil ol Propensi ty to adverse reaction s Active Other - See comments 11-25 00:00: 00 H/A [facility] NITROFUR ANTOIN DRUG INGREDI Active High Anaphylaxis 3 00:00: 00 [facility] Nitrofur antoin Drug Allergy Active Anaphylaxis 0 3 00:00: 00 [facility] Nitrofur antoin Allergy to substanc e Active Anaphylaxis 07-07 00:00: 00 [facility] TRAMADOL DRUG INGREDI Active Med Rash 11-21 00:00: 00 [facility] Tramadol Propensi ty to adverse reaction s Active Rash 11-21 00:00: 00 H/A, Rash [facility] Tramadol Allergy to substanc e Active Nausea And Vomiting 11-21 00:00: 00 [facility] SULFA (SULFONA MIDE ANTIBIOT ICS) Drug Class Active Med Hives 11-13 00:00: 00 [facility] Sulfa (Sulfona mide Antibiot ics) Propensi ty to adverse reaction s Active Swelling 11-13 00:00: 00 [facility] Sulfa (Sulfona mide Antibiot ics) Propensi ty to adverse reaction s Active Swelling 11-13 00:00: 00 Rash, Tongue swelling [facility] Codeine Propensi ty to adverse reaction s Active Rash 01-02 00:00: 00 Rash, Tongue swelling [facility] Iodine Propensi ty to adverse reaction s Active Rash 01-02 00:00: 00 IV Iodine only [facility] CODEINE DRUG INGREDI Active High Rash 01-02 00:00: 00 [facility] IODINE DRUG INGREDI Active Rash 01-02 00:00: 00 [facility] Codeine Allergy to substanc e Active Rash 01-02 00:00: 00 [facility] Iodine Allergy to substanc e Active Unknown 01-02 00:00: 00 [facility] SULFA (SULFONA MIDE ANTIBIOT ICS) Allergy to substanc e Active Anaphylaxis [facility] Iodine Adverse Reaction Active Info Not Available [facility] Social History Social Habit Start Date Stop Date Quantity Comments Source ASSERTION Not [facility] History of tobacco use Cigarette Smoker [facility] Alcoholic beverage intake 2024-09-19 00:00:00 2024-09-19 00:00:00 Current non-drinker of alcohol (finding) [facility] History of Social function 2024-05-10 00:00:00 2024-05-10 00:00:[address] [facility] Tobacco use and exposure 2024-05-05 00:00:00 2024-05-05 00:00:[address] Smokeless tobacco non-user [facility] Alcohol intake 2023-02-01 00:00:00 2023-02-01 00:00:00 Current non-drinker of alcohol (finding) [facility] Cigarettes smoked current (pack per day) - Reported 2022-07-22 00:00:00 2022-07-22 00:00:[address] [facility] Exposure to SARS-CoV-2 (event) 2022-07-11 00:00:00 2022-07-21 14:26:[address] [facility] Sex Assigned At 1955 00:00:00 1955 00:00:00 [facility] Smoking Status Start Date Stop Date Source Heavy Tobacco Smoker [facility] Smokes tobacco daily 2024-05-05 00:00:[address] [facility] Medications Ordered Medication Name Filled Medication Name Start Date Stop Date Current Medication? Ordering Clinician Indication Dosage Frequency Signature (SIG) Comments Components Source iopamidol (ISOVUE 370-500 mL) injection 75 mL 11-19 01:30: 00 11-19 01:30 :00 No [id number] 75mL 75 mL, Intravenou s, ONCE, 1 dose, On 11/18/24 at 2030, Routine [facility] NaCl 0.9% (NS) bolus infusion 1,000 mL 11-18 23:30: 00 11-19 00:51 :00 No 1000mL at 999 mL/hr, 1,000 mL, IV Infusion, ONCE, 1 dose, On 11/18/24 at 1830, STAT [facility] methylPREDN ISolone sod succ (PF) (SOLU-MEDRO L (PF)) injection 40 mg 11-18 23:30: 00 11-18 23:56 :00 No 40mg 40 mg, Intravenou s, ONCE, 1 dose, On 11/18/24 at 1830, BARBIE [facility] diphenhydrA MINE (BENADRYL) injection 50 mg 11-18 23:30: 00 11-18 23:55 :00 No 50mg 50 mg, Slow IV Push, ONCE, 1 dose, On 11/18/24 at 1830, STAT [facility] bisacodyL (DULCOLAX) tablet 10 mg 11-18 23:30: 00 11-18 22:54 :00 No 10mg 10 mg, Oral, ONCE NOW, 1 dose, On 11/18/24 at 1830, Routine [facility] metoclopram rehana HCl (REGLAN) injection 10 mg 11-18 23:30: 00 11-18 22:54 :00 No 10mg 10 mg, Slow IV Push, ONCE NOW, 1 dose, On 11/18/24 at 1830, Routine [facility] pantoprazol e (PROTONIX) 40 mg in NaCl 0.9% (NS) 10 mL syringe 11-18 23:30: 00 11-18 22:56 :00 No 40mg 40 mg, Slow IV Push, Administer over 2 Minutes, ONCE, 1 dose, On 11/18/24 at 1830, STAT [facility] bisacodyL (DULCOLAX, BISACODYL,) 5 mg EC tablet 11-18 00:00: 00 Yes [id number] 5mg Take 1 tablet by mouth 2 times daily as needed for Constipati on. [facility] lactated ringers IV infusion 1,000 mL 09-04 17:30: 00 09-04 20:44 :45 No 1000mL at 75 mL/hr, 1,000 mL, IV Infusion, CONTINUOUS , Starting on Wed09/04/24 at 1230, Until Wed09/04/24 at 1544, Routine, PACU [facility] fentanyl PF (SUBLIMAZE (PF)) injection 25 mcg 09-04 17:20: 10 09-04 20:44 :45 No 25ug 25 mcg, Slow IV Push, Q5MIN PRN, 4 doses, Starting on Wed09/04/24 at 1220, Until Wed09/04/24 at 1544, Routine, Pain Scale 4-6, PACU [facility] ondansetron (ZOFRAN (PF)) injection 4 mg 09-04 17:20: 10 09-04 20:44 :45 No 4mg 4 mg, Slow IV Push, PRN, 1 dose, Starting on Wed09/04/24 at 1220, Until 09/04/24 at 1544, Administer over 2-5 Minutes, 2 mL, PACU [facility] meperidine (DEMEROL) injection 12.5 mg 09-04 17:20: 10 09-04 20:44 :45 No 12.5mg 12.5 mg, Slow IV Push, PRN, 1 dose, Starting on Wed09/04/24 at 1220, Until Wed09/04/24 at 1544, Routine, Shivering, PACU, Enter indication for use: Reduce postoperat tory shivering, 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 Restricted medication : ANESTHESIO LOGY [facility] bupivacaine -epinephrin e-pf (SENSORCAIN E W/EPINEPHRI NE) 0.25 %-1:200,000 injection 09-04 16:09: 00 09-04 20:44 :45 No PRN, Starting on Wed09/04/24 at 1109, Until Wed09/04/24 at 1544, Routine, Intra-op [facility] sodium chloride 0.9 % irrigation solution 09-04 15:07: 00 09-04 16:40 :51 No PRN, Starting on Wed09/04/24 at 1007, Until Wed09/04/24 at 1140, Intra-op [facility] fentanyl PF (SUBLIMAZE (PF)) injection 50 mcg 09-04 14:30: 00 09-04 13:39 :00 No 50ug 50 mcg, Slow IV Push, ONCE, 1 dose, On Wed09/04/24 at 0930, Routine, DSU Pre-op [facility] gabapentin (NEURONTIN) capsule 300 mg 09-04 12:30: 00 09-04 13:23 :00 No 300mg 300 mg, Oral, Once, 1 dose, On Wed09/04/24 at 0730, Routine, DSU Pre-op [facility] lactated ringers IV infusion 1,000 mL 09-04 12:30: 00 09-04 13:23 :00 No 1000mL at 42 mL/hr, 1,000 mL, IV Infusion, ONCE, 1 dose, On Wed09/04/24 at 0730, Routine, DSU Pre-op [facility] tranexamic acid in (ISO-OS) sodium chloride 1,000 mg/100 mL (10 mg/mL) IV 1,000 mg 09-04 05:00: 00 09-04 16:59 :00 Yes 1000mg [facility] docusate 100 mg capsule 09-04 00:00: 00 Yes [id number] 100mg Take 1 capsule by mouth in the morning and 1 capsule in the evening. [facility] acetaminoph en-codeine 300-30 mg tablet 09-04 00:00: 00 09-12 04:59 :00 No [id number] 1{tbl} Take 1 tablet by mouth every 4 (four) hours as needed for Pain (scale 4-6) for up to 7 days. Indication s: acute pain [facility] ondansetron 4 mg disintegrat ing tablet 414 00:00: 00 Yes [id number] 4mg Take 1 tablet by mouth every 8 (eight) hours as needed for Nausea and Vomiting (N/V). [facility] triamcinolo ne acetonide (KENALOG) injection 40 mg 05-10 18:00: 00 05-05 17:46 :00 No [id number] 9100 40mg 40 mg, Intra-caryn cular, ONCE, 1 dose, On Wed05/10/24 at 1200, Routine [facility] amLODIPine 5 mg tablet 01-29 13:58: 20 01-29 00:00 :00 No 5mg Take 1 tablet by mouth in the morning. [facility] atorvastati n calcium (ATORVASTAT IN ORAL) 01-29 13:58: 10 01-29 00:00 :00 No Take by mouth. [facility] clopidogreL 75 mg tablet 01-29 13:58: 10 01-29 00:00 :00 No 75mg Take 1 tablet by mouth in the morning. [facility] amLODIPine 10 mg tablet 01-29 00:00: 00 Yes [id number] 10mg Take 1 tablet by mouth in the morning. [facility] atorvastati n 20 mg tablet 01-29 00:00: 00 Yes [id number] 20mg Take 1 tablet by mouth at bedtime. [facility] clopidogreL 75 mg tablet 01-29 00:00: 00 Yes [id number] 75mg Take 1 tablet by mouth in the morning. [facility] ergocalcife rol, vitamin d2, 1,250 mcg (50,000 unit) capsule 01-29 00:00: 00 Yes [id number] 60432Q Take 1 capsule by mouth weekly. [facility] calcium carbonate 500 mg calcium (1,250 mg) tablet 01-29 00:00: 00 Yes [id number] 500mg Take 1 tablet by mouth in the morning. [facility] metoprolol succinate XL 100 mg 24 hr tablet 01-29 00:00: 00 Yes [id number] 100mg Take 1 tablet by mouth in the morning and 1 tablet in the evening. [facility] metoprolol succinate XL 100 mg 24 hr tablet 12-29 14:44: 33 12-29 00:00 :00 No 100mg Take 1 tablet by mouth in the morning and 1 tablet in the evening. [facility] THYROID,POR K (ARMOUR THYROID ORAL) 12-29 14:38: 12 Yes 75mg Take 75 mg by mouth daily. [facility] metoprolol succinate XL 100 mg 24 hr tablet 11-25 15:44: 16 Yes 100mg Take 1 tablet by mouth in the morning and 1 tablet in the evening. [facility] terazosin 1 mg capsule 11-25 00:00: 00 12-29 00:00 :00 No [id number] 1mg Take 1 capsule by mouth at bedtime. [facility] ergocalcife rol, vitamin d2, 1,250 mcg (50,000 unit) capsule 11-22 00:00: 00 01-29 00:00 :00 No [id number] 02418T Take 1 capsule by mouth weekly. [facility] calcium carbonate 500 mg calcium (1,250 mg) tablet 11-22 00:00: 00 01-29 00:00 :00 No [id number] 500mg Take 1 tablet by mouth in the morning. [facility] metoprolol succinate XL 50 mg 24 hr tablet 10-30 10:21: 57 10-30 00:00 :00 No 100mg Take 2 tablets by mouth in the morning and 2 tablets in the evening. [facility] metoprolol succinate XL 100 mg 24 hr tablet 10-30 10:15: 52 10-30 00:00 :00 No 100mg Take 1 tablet by mouth in the morning. [facility] THYROID,POR K (ARMOUR THYROID ORAL) 10-30 09:59: 58 Yes 75mg Take 75 mg by mouth daily. [facility] amLODIPine 10 mg tablet 10-30 00:00: 00 12-29 00:00 :00 No [id number] 10mg Take 1 tablet by mouth in the morning. [facility] carvediloL 12.5 mg tablet 10-30 00:00: 00 11-25 00:00 :00 No [id number] 12.5mg Take 1 tablet by mouth in the morning and 1 tablet in the evening. Take with meals. [facility] cloNIDine (CATAPRES) tablet 0.2 mg 10-29 16:15: 00 10-29 15:29 :00 No [id number] .2mg [facility] metoprolol succinate XL 100 mg 24 hr tablet 10-29 10:20: 33 Yes 100mg Take 1 tablet by mouth in the morning. [facility] metoprolol succinate XL 50 mg 24 hr tablet 10-29 10:20: 06 Yes 100mg Take 2 tablets by mouth in the morning and 2 tablets in the evening. [facility] Diclofenac Sodium (VOLTAREN) 1 % gel 10-29 00:00: 00 Yes [id number] Apply to area(s) 4 (four) times daily. Apply 4 g qid [facility] Lidocaine 5 % cream 10-29 00:00: 00 Yes [id number] Apply to area(s) 2 (two) times daily as needed for Pain (scale 4-6). Apply 5g to affected areas BID PRN [facility] buPROPion 100 mg tablet 10-29 00:00: 00 12-23 00:00 :00 No [id number] 100mg Take 1 tablet by mouth in the morning and 1 tablet in the evening. [facility] hydrOXYchlo roQUINE 200 mg tablet 10-25 00:00: 00 Yes 200mg Take 1 tablet by mouth in the morning and 1 tablet in the evening. [facility] clopidogreL 75 mg tablet 10-08 00:00: 00 12-29 00:00 :00 No 75mg Take 1 tablet by mouth in the morning. [facility] lansoprazol e 30 mg capsule 09-26 00:00: 00 Yes 30mg Take 1 capsule by mouth in the morning and 1 capsule in the evening. [facility] levoFLOXaci n (Levaquin) 500 MG tablet 08-19 00:00: 00 08-30 04:59 :00 No [id number] 500mg QD Take 1 tablet (500 mg total) by mouth 1 (one) time each day for 10 days. [facility] clindamycin (Cleocin) 300 MG capsule 08-15 00:00: 00 08-23 04:59 :00 No [id number] 600mg Q.25D Take 2 capsules (600 mg total) by mouth 4 (four) times a day for 7 days. [facility] simvastatin (Zocor) 20 MG tablet 10-26 00:00: 00 Yes [facility] metoprolol succinate XL (Toprol-XL) 50 MG 24 hr tablet 08-30 00:00: 00 Yes [facility] metoprolol succinate XL (TOPROL XL) 100 mg 24 hr tablet 11-21 17:24: 26 Yes 100mg Take 100 mg by mouth daily. [facility] THYROID,POR K (ARMOUR THYROID ORAL) 11-21 17:24: 26 Yes 75mg Take 75 mg by mouth daily. [facility] metoprolol succinate XL (TOPROL XL) 100 mg 24 hr tablet 11-21 12:24: 26 Yes 100mg Take 100 mg by mouth daily. [facility] THYROID,POR K (ARMOUR THYROID ORAL) 11-21 12:24: 26 Yes 75mg Take 75 mg by mouth daily. [facility] pentazocine -naloxone 50-0.5 mg tablet 11-21 00:00: 00 12-23 00:00 :00 No 1{tbl} Take 1 tablet by mouth every 6 (six) hours as needed for Pain. [facility] atorvastati n 20 mg tablet 09-30 00:00: 00 11-25 00:00 :00 No 20mg Take 1 tablet by mouth in the morning. [facility] metFORMIN 500 mg tablet 09-30 00:00: 00 10-29 00:00 :00 No 500mg Take 500 mg by mouth at bedtime. [facility] omeprazole 40 mg capsule 08-31 00:00: 00 10-29 00:00 :00 No 40mg Take 40 mg by mouth daily. [facility] RACQUET MAKER Thyroid 25 mg daily RACQUET MAKER Thyroid 25 mg daily No RACQUET MAKER Thyroid 25 mg daily [facility] Tylenol 325 mg capsule Take 1 capsule as needed by oral route. Tylenol 325 mg capsule Take 1 capsule as needed by oral route. No 1capsul e(s) Tylenol 325 mg capsule Take 1 capsule as needed by oral route. [facility] ibuprofen 800 mg tablet Take 1 tablet as needed by oral route for 6 days. ibuprofen 800 mg tablet Take 1 tablet as needed by oral route for 6 days. No 1 ibuprofen 800 mg tablet Take 1 tablet as needed by oral route for 6 days. [facility] Thyroid Thyroid Yes Ankit Prabhakar not defined [facility] Metoprolol Succinate ER Metoprolol Succinate ER Yes Ankit Prabhakar not defined [facility] lipitor lipitor Yes Ankit Prabhakar not defined [facility] Immunizations Ordered Immunization Name Filled Immunization Name Date Status Comments Source Pneumococcal 20 Conjugate, PCV20 (Prevnar 20) 2022-10-29 00:00:[address] [facility] Pneumococcal 20 Conjugate, PCV20 (Prevnar 20) 2022-10-29 00:00:[address] [facility] Pneumococcal 20 Conjugate, PCV20 (Prevnar 20) 2022-10-29 00:00:[address] [facility] Pneumococcal 20 Conjugate, PCV20 (Prevnar 20) 2022-10-29 00:00:[address] [facility] Pneumococcal 20 Conjugate, PCV20 (Prevnar 20) 2022-10-29 00:00:[address] [facility] Pneumococcal 20 Conjugate, PCV20 (Prevnar 20) 2022-10-29 00:00:[address] [facility] Pneumococcal 20 Conjugate, PCV20 (Prevnar 20) 2022-10-29 00:00:[address] [facility] Pneumococcal 20 Conjugate, PCV20 (Prevnar 20) 2022-10-29 00:00:[address] [facility] Pneumococcal 20 Conjugate, PCV20 (Prevnar 20) 2022-10-29 00:00:[address] [facility] Pneumococcal 20 Conjugate, PCV20 (Prevnar 20) 2022-10-29 00:00:[address] [facility] Pneumococcal 20 Conjugate, PCV20 (Prevnar 20) 2022-10-29 00:00:[address] [facility] Pneumococcal 20 Conjugate, PCV20 (Prevnar 20) 2022-10-29 00:00:[address] [facility] SARS-COV-2 COVID-19 MODERNA 12+ YRS VACCINE 2020-06-04 00:00:[address] [facility] SARS-COV-2 COVID-19 MODERNA 12+ YRS VACCINE 2020-06-04 00:00:[address] [facility] SARS-COV-2 COVID-19 MODERNA 12+ YRS VACCINE 2020-06-04 00:00:[address] [facility] SARS-COV-2 COVID-19 MODERNA 12+ YRS VACCINE 2020-06-04 00:00:[address] [facility] SARS-COV-2 COVID-19 MODERNA 12+ YRS VACCINE 2020-06-04 00:00:[address] [facility] SARS-COV-2 COVID-19 MODERNA 12+ YRS VACCINE 2020-06-04 00:00:[address] [facility] SARS-COV-2 COVID-19 MODERNA 12+ YRS VACCINE 2020-06-04 00:00:[address] [facility] SARS-COV-2 COVID-19 MODERNA 12+ YRS VACCINE 2020-06-04 00:00:[address] [facility] SARS-COV-2 COVID-19 MODERNA 12+ YRS VACCINE 2020-06-04 00:00:[address] [facility] SARS-COV-2 COVID-19 MODERNA 12+ YRS VACCINE 2020-06-04 00:00:[address] [facility] SARS-COV-2 COVID-19 MODERNA 12+ YRS VACCINE 2020-06-04 00:00:[address] [facility] SARS-COV-2 COVID-19 MODERNA 12+ YRS VACCINE 2020-06-04 00:00:[address] [facility] SARS-COV-2 COVID-19 MODERNA 12+ YRS VACCINE 2020-06-04 00:00:[address] [facility] SARS-COV-2 COVID-19 MODERNA 12+ YRS VACCINE 2020-06-04 00:00:[address] [facility] SARS-COV-2 COVID-19 MODERNA 12+ YRS VACCINE 2020-06-04 00:00:[address] [facility] SARS-COV-2 COVID-19 MODERNA 12+ YRS VACCINE 2020-06-04 00:00:[address] [facility] SARS-COV-2 COVID-19 MODERNA 12+ YRS VACCINE 2020-05-07 00:00:[address] [facility] SARS-COV-2 COVID-19 MODERNA 12+ YRS VACCINE 2020-05-07 00:00:[address] [facility] SARS-COV-2 COVID-19 MODERNA 12+ YRS VACCINE 2020-05-07 00:00:[address] [facility] SARS-COV-2 COVID-19 MODERNA 12+ YRS VACCINE 2020-05-07 00:00:[address] [facility] SARS-COV-2 COVID-19 MODERNA 12+ YRS VACCINE 2020-05-07 00:00:[address] [facility] SARS-COV-2 COVID-19 MODERNA 12+ YRS VACCINE 2020-05-07 00:00:[address] [facility] SARS-COV-2 COVID-19 MODERNA 12+ YRS VACCINE 2020-05-07 00:00:[address] [facility] SARS-COV-2 COVID-19 MODERNA 12+ YRS VACCINE 2020-05-07 00:00:[address] [facility] SARS-COV-2 COVID-19 MODERNA 12+ YRS VACCINE 2020-05-07 00:00:[address] [facility] SARS-COV-2 COVID-19 MODERNA 12+ YRS VACCINE 2020-05-07 00:00:[address] [facility] SARS-COV-2 COVID-19 MODERNA 12+ YRS VACCINE 2020-05-07 00:00:[address] [facility] SARS-COV-2 COVID-19 MODERNA 12+ YRS VACCINE 2020-05-07 00:00:[address] [facility] SARS-COV-2 COVID-19 MODERNA 12+ YRS VACCINE 2020-05-07 00:00:[address] [facility] SARS-COV-2 COVID-19 MODERNA 12+ YRS VACCINE 2020-05-07 00:00:[address] [facility] SARS-COV-2 COVID-19 MODERNA 12+ YRS VACCINE 2020-05-07 00:00:[address] [facility] SARS-COV-2 COVID-19 MODERNA 12+ YRS VACCINE 2020-05-07 00:00:[address] [facility] SARS-COV-2 COVID-19 MODERNA 12+ YRS VACCINE 2020-04-06 00:00:[address] [facility] SARS-COV-2 COVID-19 MODERNA 12+ YRS VACCINE 2020-04-06 00:00:[address] [facility] SARS-COV-2 COVID-19 MODERNA 12+ YRS VACCINE 2020-04-06 00:00:[address] [facility] SARS-COV-2 COVID-19 MODERNA 12+ YRS VACCINE 2020-04-06 00:00:[address] [facility] SARS-COV-2 COVID-19 MODERNA 12+ YRS VACCINE 2020-04-06 00:00:[address] [facility] SARS-COV-2 COVID-19 MODERNA 12+ YRS VACCINE 2020-04-06 00:00:[address] [facility] SARS-COV-2 COVID-19 MODERNA 12+ YRS VACCINE 2020-04-06 00:00:[address] [facility] SARS-COV-2 COVID-19 MODERNA 12+ YRS VACCINE 2020-04-06 00:00:[address] [facility] SARS-COV-2 COVID-19 MODERNA 12+ YRS VACCINE 2020-04-06 00:00:[address] [facility] SARS-COV-2 COVID-19 MODERNA 12+ YRS VACCINE 2020-04-06 00:00:[address] [facility] SARS-COV-2 COVID-19 MODERNA 12+ YRS VACCINE 2020-04-06 00:00:[address] [facility] SARS-COV-2 COVID-19 MODERNA 12+ YRS VACCINE 2020-04-06 00:00:00 Completed COVID-19, mRNA, LNP-S, PF, 100 mcg/0.5 mL dose COVID-19, mRNA, LNP-S, PF, 100 mcg/0.5 mL dose 2020-04-06 00:00:00 Completed [facility] Pneumococcal Polysaccharide, PPSV23 (PNEUMOVAX) 2015-05-03 00:00:[address] [facility] Pneumococcal Polysaccharide, PPSV23 (PNEUMOVAX) 2015-05-03 00:00:[address] [facility] Pneumococcal Polysaccharide, PPSV23 (PNEUMOVAX) 2015-05-03 00:00:[address] [facility] Pneumococcal Polysaccharide, PPSV23 (PNEUMOVAX) 2015-05-03 00:00:[address] [facility] Pneumococcal Polysaccharide, PPSV23 (PNEUMOVAX) 2015-05-03 00:00:[address] [facility] Pneumococcal Polysaccharide, PPSV23 (PNEUMOVAX) 2015-05-03 00:00:[address] [facility] Pneumococcal Polysaccharide, PPSV23 (PNEUMOVAX) 2015-05-03 00:00:[address] [facility] Pneumococcal Polysaccharide, PPSV23 (PNEUMOVAX) 2015-05-03 00:00:[address] [facility] Pneumococcal Polysaccharide, PPSV23 (PNEUMOVAX) 2015-05-03 00:00:[address] [facility] Pneumococcal Polysaccharide, PPSV23 (PNEUMOVAX) 2015-05-03 00:00:[address] [facility] Pneumococcal Polysaccharide, PPSV23 (PNEUMOVAX) 2015-05-03 00:00:[address] [facility] Pneumococcal Polysaccharide, PPSV23 (PNEUMOVAX) 2015-05-03 00:00:[address] [facility] pneumococcal polysaccharide PPV23 pneumococcal polysaccharide PPV23 2015-05-03 00:00:00 Completed [facility] SARS-COV-2 COVID-19 MODERNA 12+ YRS VACCINE Unknown Completed [facility] Pneumococcal Polysaccharide, PPSV23 (PNEUMOVAX) Unknown Completed [facility] Pneumococcal 20 Conjugate, PCV20 (Prevnar 20) Unknown Completed [facility] SARS-COV-2 COVID-19 MODERNA 12+ YRS VACCINE Unknown Completed [facility] Pneumococcal Polysaccharide, PPSV23 (PNEUMOVAX) Unknown Completed [facility] Pneumococcal 20 Conjugate, PCV20 (Prevnar 20) Unknown Completed [facility] SARS-COV-2 COVID-19 MODERNA 12+ YRS VACCINE Unknown Completed [facility] Pneumococcal Polysaccharide, PPSV23 (PNEUMOVAX) Unknown Completed [facility] Pneumococcal 20 Conjugate, PCV20 (Prevnar 20) Unknown Completed [facility] SARS-COV-2 COVID-19 MODERNA 12+ YRS VACCINE Unknown Completed [facility] Pneumococcal Polysaccharide, PPSV23 (PNEUMOVAX) Unknown Completed [facility] Pneumococcal 20 Conjugate, PCV20 (Prevnar 20) Unknown Completed [facility] SARS-COV-2 COVID-19 MODERNA 12+ YRS VACCINE Unknown Completed [facility] Pneumococcal Polysaccharide, PPSV23 (PNEUMOVAX) Unknown Completed [facility] Pneumococcal 20 Conjugate, PCV20 (Prevnar 20) Unknown Completed [facility] SARS-COV-2 COVID-19 MODERNA 12+ YRS VACCINE Unknown Completed [facility] Pneumococcal Polysaccharide, PPSV23 (PNEUMOVAX) Unknown Completed [facility] Pneumococcal 20 Conjugate, PCV20 (Prevnar 20) Unknown Completed [facility] SARS-COV-2 COVID-19 MODERNA 12+ YRS VACCINE Unknown Completed [facility] Pneumococcal Polysaccharide, PPSV23 (PNEUMOVAX) Unknown Completed [facility] Pneumococcal 20 Conjugate, PCV20 (Prevnar 20) Unknown Completed [facility] Vital Signs Vital Name Observation Time Observation Value Comments S ource Systolic blood pressure 2024-11-19 02:41:00 122 mm[Hg] [facility] Diastolic blood pressure 2024-11-19 02:41:00 72 mm[Hg] [facility] Heart rate 2024-11-19 02:41:00 70 /min [facility] Body temperature 2024-11-19 02:41:[address] [facility] Respiratory rate 2024-11-19 02:41:00 18 /min [facility] Oxygen saturation in Arterial blood by Pulse oximetry 2024-11-19 02:41:00 98 /min [facility] Body height 2024-11-18 22:21:[address] [facility] Body weight 2024-11-18 22:21:[address] [facility] BMI 2024-11-18 22:21:00 28.87 kg/m2 [facility] Systolic blood pressure 2024-11-07 14:34:00 172 mm[Hg] [facility] Diastolic blood pressure 2024-11-07 14:34:00 89 mm[Hg] [facility] Heart rate 2024-11-07 14:34:00 72 /min [facility] Body height 2024-11-07 14:33:[address] [facility] Body weight 2024-11-07 14:33:[address] [facility] BMI 2024-11-07 14:33:00 28.20 kg/m2 [facility] Oxygen saturation in Arterial blood by Pulse oximetry 2024-11-07 14:33:00 98 /min [facility] Systolic blood pressure 2024-10-04 19:55:00 169 mm[Hg] [facility] Diastolic blood pressure 2024-10-04 19:55:00 79 mm[Hg] [facility] Heart rate 2024-10-04 19:54:00 76 /min [facility] Respiratory rate 2024-10-04 19:54:00 20 /min [facility] Body height 2024-10-04 19:54:[address] [facility] Body weight 2024-10-04 19:54:[address] [facility] BMI 2024-10-04 19:54:00 30.34 kg/m2 [facility] Oxygen saturation in Arterial blood by Pulse oximetry 2024-10-04 19:54:00 99 /min [facility] Systolic blood pressure 2024-09-19 14:11:00 177 mm[Hg] [facility] Diastolic blood pressure 2024-09-19 14:11:00 70 mm[Hg] [facility] Heart rate 2024-09-19 14:11:00 71 /min [facility] Body temperature 2024-09-19 14:10:[address] [facility] Body height 2024-09-19 14:10:[address] [facility] Body weight 2024-09-19 14:10:[address] [facility] BMI 2024-09-19 14:10:00 31.04 kg/m2 [facility] Oxygen saturation in Arterial blood by Pulse oximetry 2024-09-19 14:10:00 98 /min [facility] Systolic blood pressure 2024-09-12 14:27:00 180 mm[Hg] [facility] Diastolic blood pressure 2024-09-12 14:27:00 71 mm[Hg] [facility] Heart rate 2024-09-12 14:27:00 83 /min [facility] Body temperature 2024-09-12 14:26:[address] [facility] Body height 2024-09-12 14:26:[address] [facility] Body weight 2024-09-12 14:26:[address] [facility] BMI 2024-09-12 14:26:00 31.19 kg/m2 [facility] Oxygen saturation in Arterial blood by Pulse oximetry 2024-09-12 14:26:00 98 /min [facility] Systolic blood pressure 2024-09-04 17:20:00 135 mm[Hg] [facility] Diastolic blood pressure 2024-09-04 17:20:00 52 mm[Hg] [facility] Heart rate 2024-09-04 17:20:00 59 /min [facility] Respiratory rate 2024-09-04 17:20:00 19 /min [facility] Oxygen saturation in Arterial blood by Pulse oximetry 2024-09-04 17:20:00 93 /min [facility] Body temperature 2024-09-04 16:41:[address] [facility] Body height 2024-09-04 13:05:[address] [facility] Body weight 2024-09-04 13:05:[address] [facility] BMI 2024-09-04 13:05:00 31.89 kg/m2 [facility] Systolic blood pressure 2024-09-04 17:20:00 135 mm[Hg] [facility] Diastolic blood pressure 2024-09-04 17:20:00 52 mm[Hg] [facility] Heart rate 2024-09-04 17:20:00 59 /min [facility] Respiratory rate 2024-09-04 17:20:00 19 /min [facility] Oxygen saturation in Arterial blood by Pulse oximetry 2024-09-04 17:20:00 93 /min [facility] Body temperature 2024-09-04 16:41:[address] [facility] Body height 2024-09-04 13:05:[address] [facility] Body weight 2024-09-04 13:05:[address] [facility] BMI 2024-09-04 13:05:00 31.89 kg/m2 [facility] Systolic blood pressure 2024-08-24 19:52:00 182 mm[Hg] pt reports that she did not take BP meds today [facility] Diastolic blood pressure 2024-08-24 19:52:00 85 mm[Hg] pt reports that she did not take BP meds today [facility] Heart rate 2024-08-24 19:51:00 70 /min [facility] Body temperature 2024-08-24 19:51:[address] [facility] Body height 2024-08-24 19:51:[address] [facility] Body weight 2024-08-24 19:51:[address] [facility] BMI 2024-08-24 19:51:00 31.89 kg/m2 [facility] Oxygen saturation in Arterial blood by Pulse oximetry 2024-08-24 19:51:00 98 /min [facility] Systolic blood pressure 2024-08-15 01:50:00 197 mm[Hg] [facility] Diastolic blood pressure 2024-08-15 01:50:00 58 mm[Hg] [facility] Heart rate 2024-08-15 01:50:00 64 /min [facility] Body temperature 2024-08-15 01:50:[address] [facility] Respiratory rate 2024-08-15 01:50:00 18 /min [facility] Oxygen saturation in Arterial blood by Pulse oximetry 2024-08-15 01:50:00 98 /min [facility] Body height 2024-08-14 20:18:[address] [facility] Body weight 2024-08-14 20:18:[address] [facility] BMI 2024-08-14 20:18:00 31.58 kg/m2 [facility] Systolic blood pressure 2024-07-03 21:20:00 177 mm[Hg] [facility] Diastolic blood pressure 2024-07-03 21:20:00 76 mm[Hg] [facility] Heart rate 2024-07-03 21:20:00 72 /min [facility] Body temperature 2024-07-03 21:19:[address] [facility] Body height 2024-07-03 21:19:[address] [facility] Body weight 2024-07-03 21:19:[address] [facility] BMI 2024-07-03 21:19:00 32.77 kg/m2 [facility] Systolic blood pressure 2024-06-29 20:45:00 145 mm[Hg] [facility] Diastolic blood pressure 2024-06-29 20:45:00 79 mm[Hg] [facility] Heart rate 2024-06-29 20:45:00 70 /min [facility] Body temperature 2024-06-29 20:45:[address] [facility] Respiratory rate 2024-06-29 20:45:00 18 /min [facility] Body height 2024-06-29 20:45:[address] [facility] Body weight 2024-06-29 20:45:[address] [facility] BMI 2024-06-29 20:45:00 33.86 kg/m2 [facility] Oxygen saturation in Arterial blood by Pulse oximetry 2024-06-29 20:45:00 99 /min [facility] Systolic blood pressure 2024-05-25 15:43:00 182 mm[Hg] [facility] Diastolic blood pressure 2024-05-25 15:43:00 82 mm[Hg] [facility] Heart rate 2024-05-25 15:43:00 74 /min [facility] Body height 2024-05-25 15:42:[address] [facility] Body weight 2024-05-25 15:42:[address] [facility] BMI 2024-05-25 15:42:00 34.05 kg/m2 [facility] Systolic blood pressure 2024-05-10 20:15:00 200 mm[Hg] [facility] Diastolic blood pressure 2024-05-10 20:15:00 80 mm[Hg] [facility] Heart rate 2024-05-10 20:15:00 68 /min [facility] Oxygen saturation in Arterial blood by Pulse oximetry 2024-05-10 20:15:00 97 /min [facility] Respiratory rate 2024-05-10 20:06:00 18 /min [facility] Body height 2024-05-10 20:06:[address] [facility] Body weight 2024-05-10 20:06:[address] [facility] BMI 2024-05-10 20:06:00 33.13 kg/m2 [facility] Systolic blood pressure 2024-05-05 15:49:00 176 mm[Hg] [facility] Diastolic blood pressure 2024-05-05 15:49:00 93 mm[Hg] [facility] Heart rate 2024-05-05 15:48:00 76 /min [facility] Body height 2024-05-05 15:48:[address] [facility] Body weight 2024-05-05 15:48:[address] [facility] BMI 2024-05-05 15:48:00 34.37 kg/m2 [facility] Oxygen saturation in Arterial blood by Pulse oximetry 2024-05-05 15:48:00 98 /min [facility] Systolic blood pressure 2023-01-29 18:23:00 125 mm[Hg] [facility] Diastolic blood pressure 2023-01-29 18:23:00 59 mm[Hg] [facility] Heart rate 2023-01-29 18:23:00 53 /min [facility] Oxygen saturation in Arterial blood by Pulse oximetry 2023-01-29 18:23:00 96 /min [facility] Body temperature 2023-01-29 18:19:[address] [facility] Respiratory rate 2023-01-29 18:19:00 19 /min [facility] Body height 2023-01-29 18:19:[address] [facility] Body weight 2023-01-29 18:19:[address] [facility] BMI 2023-01-29 18:19:00 35.15 kg/m2 [facility] Systolic blood pressure 2022-12-29 19:38:00 180 mm[Hg] [facility] Diastolic blood pressure 2022-12-29 19:38:00 78 mm[Hg] [facility] Heart rate 2022-12-29 19:31:00 83 /min [facility] Respiratory rate 2022-12-29 19:31:00 20 /min [facility] Body height 2022-12-29 19:31:[address] [facility] Body weight 2022-12-29 19:31:[address] [facility] BMI 2022-12-29 19:31:00 36.33 kg/m2 [facility] Oxygen saturation in Arterial blood by Pulse oximetry 2022-12-29 19:31:00 96 /min [facility] Systolic blood pressure 2022-12-23 15:27:00 181 mm[Hg] [facility] Diastolic blood pressure 2022-12-23 15:27:00 95 mm[Hg] [facility] Heart rate 2022-12-23 15:27:00 78 /min [facility] Respiratory rate 2022-12-23 15:24:00 19 /min [facility] Body height 2022-12-23 15:24:[address] [facility] Body weight 2022-12-23 15:24:[address] [facility] BMI 2022-12-23 15:24:00 34.84 kg/m2 [facility] Oxygen saturation in Arterial blood by Pulse oximetry 2022-12-23 15:24:00 95 /min [facility] Systolic blood pressure 2022-11-25 20:46:00 173 mm[Hg] [facility] Diastolic blood pressure 2022-11-25 20:46:00 69 mm[Hg] [facility] Heart rate 2022-11-25 20:46:00 55 /min [facility] Oxygen saturation in Arterial blood by Pulse oximetry 2022-11-25 20:46:00 97 /min [facility] Respiratory rate 2022-11-25 20:39:00 19 /min [facility] Body height 2022-11-25 20:39:[address] [facility] Body weight 2022-11-25 20:39:[address] [facility] BMI 2022-11-25 20:39:00 35.19 kg/m2 [facility] Systolic blood pressure 2022-10-30 15:04:00 205 mm[Hg] [facility] Diastolic blood pressure 2022-10-30 15:04:00 85 mm[Hg] [facility] Heart rate 2022-10-30 15:04:00 74 /min [facility] Oxygen saturation in Arterial blood by Pulse oximetry 2022-10-30 15:04:00 97 /min [facility] Body temperature 2022-10-30 15:02:[address] [facility] Body height 2022-10-30 15:02:[address] [facility] Body weight 2022-10-30 15:02:[address] [facility] BMI 2022-10-30 15:02:00 36.63 kg/m2 [facility] Systolic blood pressure 2022-10-29 16:04:00 149 mm[Hg] [facility] Diastolic blood pressure 2022-10-29 16:04:00 93 mm[Hg] [facility] Heart rate 2022-10-29 15:20:00 69 /min [facility] Body temperature 2022-10-29 15:20:[address] [facility] Body height 2022-10-29 15:20:[address] [facility] Body weight 2022-10-29 15:20:[address] [facility] BMI 2022-10-29 15:20:00 36.40 kg/m2 [facility] Oxygen saturation in Arterial blood by Pulse oximetry 2022-10-29 15:20:00 97 /min [facility] Systolic blood pressure 2022-07-22 18:26:00 170 mm[Hg] [facility] Diastolic blood pressure 2022-07-22 18:26:00 69 mm[Hg] [facility] Heart rate 2022-07-22 18:26:00 58 /min [facility] Body height 2022-07-22 18:26:[address] [facility] Body weight 2022-07-22 18:26:[address] [facility] BMI 2022-07-22 18:26:00 36.49 kg/m2 [facility] Systolic blood pressure 2022-05-27 21:03:00 165 mm[Hg] pt upset [facility] Diastolic blood pressure 2022-05-27 21:03:00 78 mm[Hg] pt upset [facility] Heart rate 2022-05-27 21:03:00 73 /min [facility] Body height 2022-05-27 21:03:[address] [facility] Body weight 2022-05-27 21:03:[address] [facility] BMI 2022-05-27 21:03:00 35.43 kg/m2 [facility] BP Diastolic 2020-09-23 00:00:00 77 mm[Hg] [facility] [facility] Height 2020-09-23 00:00:00 63 [in_i] [facility] BMI (Body Mass Index) 2020-09-23 00:00:00 35.8 kg/m2 [facility] BP Systolic 2020-09-23 00:00:00 170 mm[Hg] [facility] Body Weight 2020-09-23 00:00:00 202 [lb_av] [facility] BP Diastolic 2020-05-14 00:00:00 72 mm[Hg] [facility] Height 2020-05-14 00:00:00 63 [in_i] [facility] BMI (Body Mass Index) 2020-05-14 00:00:00 35.8 kg/m2 [facility] BP Systolic 2020-05-14 00:00:00 130 mm[Hg] [facility] Body Weight 2020-05-14 00:00:00 202 [lb_av] [facility] BP Diastolic 2020-03-05 00:00:00 72 mm[Hg] [facility] Height 2020-03-05 00:00:00 63 [in_i] [facility] BMI (Body Mass Index) 2020-03-05 00:00:00 35.8 kg/m2 [facility] BP Systolic 2020-03-05 00:00:00 137 mm[Hg] [facility] Body Weight 2020-03-05 00:00:00 202 [lb_av] [facility] Height 2020-02-02 00:00:00 63 [in_i] [facility] BMI (Body Mass Index) 2020-02-02 00:00:00 35.4 kg/m2 [facility] Body Weight 2020-02-02 00:00:00 200 [lb_av] [facility] Height 2020-01-03 00:00:00 63 [in_i] [facility] BMI (Body Mass Index) 2020-01-03 00:00:00 36.1 kg/m2 [facility] Body Weight 2020-01-03 00:00:00 204 [lb_av] [facility] Body height 2018-12-05 19:37:[address] [facility] Body weight 2018-12-05 19:37:[address] [facility] BMI 2018-12-05 19:37:00 36.27 kg/m2 [facility] Body height 2018-12-05 19:37:[address] [facility] Body weight 2018-12-05 19:37:[address] [facility] BMI 2018-12-05 19:37:00 36.27 kg/m2 [facility] Procedures Procedure Date / Time Performed Performing Clinician Source CT ABDOMEN PELVIS W CONTRAST 2024-11-19 00:44:[address]ánchez [facility] LIPASE 2024-11-18 22:48:00 Terell Sánchez [facility] COMP. METABOLIC PANEL (41014) 2024-11-18 22:48:[address] Sánchez [facility] CBC WITH DIFF 2024-11-18 22:48:00 Terell Sánchez [facility] URINALYSIS 2024-11-18 22:48:00 Terell Sánchez [facility] XR SHOULDER <2 VW RIGHT 2024-11-07 15:11:[address] [facility] DSU PRE-OP 2024-10-09 19:57:40 Doctor Unass igned, [place] [facility] CBC WITH DIFF 2024-10-06 14:31:00 Senth[facility] PROTHROMBIN TIME / INR 2024-10-06 14:31:[address] [facility] ACTIVATED PARTIAL THRMPLAS JAMES 2024-10-06 14:31:[address] [facility] XR SHOULDER 2+ VW RIGHT 2024-10-04 20:09:[address] [facility] XR SHOULDER 2+ VW RIGHT 2024-09-12 14:30:[address] [facility] [id number] - ID ARTHROPLASTY GLENOHUMERAL JOINT TOTAL SHOULDER 2024-09-04 14:12:[address] [facility] HB ABO GROUPING 2024-09-04 13:20:00 [facility] 2024-09-04 13:20:00 Roderick [facility] URINALYSIS 2024-08-14 22:55:00 Evaristo Roblero [facility] COMP. METABOLIC PANEL ([id number]) 2024-08-14 22:54:[address] [facility] CBC WITH DIFF 2024-08-14 22:54:00 [facility] PELVIS WO CONTRAST 2024-08-14 21:30:00 Osbaldo [facility] DSU PRE-OP 2024 14:26:37 Doctor Unass igned, [place] [facility] XR CHEST 1 VW 2024-05-25 16:28:07 Rupali Patel [facility] EXTERNAL PROVIDER RECORDS 2023-05-04 06:01:00 Do ctor Unassigned, [place] [facility] SLEEP STUDY DATA REPORT 2022-11-24 05:01:00 Doct or Unassigned, [place] [facility] PNEUMOCOCCAL 20 CONJUGATE (PREVNAR 20) VACCINE 2022-10-29 16:11:[address] [facility] ASSIGNMENT OF BENEFITS 2022-07-22 18:17:02 Docto r Unassigned, [place] [facility] INSURANCE CORRESPONDENCE 2022-04-10 06:01:00 Doc tor Unassigned, [place] [facility] Excision of Left Kidney 2008-05-03 00:00:00 [facility] 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 [facility] Bilateral Replacement of Knee Joints [facility] Appendectomy [facility] Hysterectomy (Total) [facility] Cholecystectomy [facility] 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 [facility] Screening for Osteoporosis [facility] Colon[facility] with Bi[facility] Encounters Start Date/Time End Date/Time Encounter Type Admission Type Attending Clinicians Care Facility Care Department Encounter ID Source 2024-07-04 15:24:33 Outpatient R RUPALI PATEL CRAIG [facility] [id number] [facility] 2024-07-04 07:34:59 Outpatient R RUPALI PATEL RUPALI [facility] SOR [id number] [facility] 2022-10-06 09:27:23 Outpatient [facility] [id number] [facility] 2022-07-07 09:02:11 Outpatient [facility] [id number] [facility] 2022-07-01 10:05:12 Outpatient [facility] [id number] [facility] 2022-04-20 07:57:42 Outpatient [facility] [id number] [facility] 2022-04-07 08:55:39 Outpatient [facility] [id number] [facility] 2022-03-13 10:04:15 Outpatient [facility] [id number] [facility] 2021-08-26 13:58:10 Outpatient [facility]ENS [id number] 2021-07-17 15:37:07 Outpatient RUBENS HATCH [facility] [id number] [facility] 2024-11-18 17:25:00 2024-11-18 21:42:00 Emergency X GONZALO, TERELL SHAVER [facility] ERT [id number] [facility] 2024-11-07 09:41:42 2024-11-07 23:59:00 Hospital Encounter R RUPALI PATEL [facility] MEDICAL OFFICE BUILDING 1.2.840.114 350.1.13.10 4.2.7.2.686 [id number] [facility] 2024-11-07 09:30:00 2024-11-07 10:30:27 Office Visit R RUPALI PATEL [facility] MEDICAL OFFICE BUILDING 1.2.840.114 350.1.13.10 4.2.7.2.686 [id number] [facility] 2024-10-11 10:15:00 2024-10-11 10:15:00 Outpatient R RUPALI PATEL [facility] [id number] [facility] 2024-10-09 00:00:00 2024-10-10 02:04:46 Orders Only Doctor Unassigned, [place] Doctor Unassigned, [place] [facility] ([facility] 1.2.840.114 350.1.13.10 4.2.7.2.686 [id number] [facility] 2024-10-06 08:45:00 2024-10-06 08:45:00 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 SENTHIL GASCA [facility] 1.2.840.114 350.1.13.10 4.2.7.2.686 [id number] [facility] 2024-10-04 14:57:44 2024-10-04 23:59:00 Hospital Encounter R RUPALI PATEL [facility] MEDICAL OFFICE BUILDING 1.2.840.114 350.1.13.10 4.2.7.2.686 [id number] [facility] 2024-10-04 15:00:00 2024-10-04 15:35:51 Office Visit R RUPALI PATEL [facility] MEDICAL OFFICE BUILDING 1.2.840.114 350.1.13.10 4.2.7.2.686 [id number] [facility] 2024-10-03 00:00:00 2024-10-03 15:13:30 Telephone Hamzah Solomon [facility] PROFESSIO NAL BUILDING 1.2.84.114 350.1.13.10 4.2.7.2.686 [id number] [facility] 2024-08-28 00:00:00 2024-09-30 18:21:00 Patient Secure Msg Doctor Unassigned, [place] Doctor Unassigned, [place] [facility] ([facility]) 1.84.114 350.1.13.10 4.2.7.2.686 [id number] [facility] 2024-09-19 09:00:00 2024-09-19 09:30:55 Office Visit R RUPALI PATEL CRAIG [facility] MED[facility] OFF[facility] BU[facility] 1.84.114 350.1.13.10 4.2.7.2.686 [id number] [facility] 2024-09-13 11:45:00 2024-09-13 11:45:00 Outpatient SENTHIL GASCA [facility] [id number] [facility] 2024-09-13 11:45:00 2024-09-13 11:45:00 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 SENTHIL GASCA [facility] 1.84.114 350.1.13.10 4.2.7.2.686 [id number] [facility] 2024-09-13 10:15:00 2024-09-13 10:15:00 Outpatient RUPALI PARSONS CRAIG [facility] [id number] [facility] 2024-09-13 10:15:00 2024-09-13 10:15:00 Outpatient R RUPALI PATEL CRAIG [facility] [id number] [facility] 2024-09-12 09:25:56 2024-09-12 23:59:00 Hospital Encounter Rupali Patel [facility] MEDICAL OFFICE BUILDING 1.84.114 350.1.13.10 4.2.7.2.686 [id number] [facility] 2024-09-12 09:00:00 2024-09-12 09:49:32 Outpatient R RUPALI PATEL CRAIG [facility] [id number] [facility] 2024-09-12 09:00:00 2024-09-12 09:49:32 Office Visit R RUPALI PATEL CRAIG [facility] OFFICE BUILDING 1.2.840.114 350.1.13.10 4.2.7.2.686 [id number] [facility] 2024-09-07 00:00:00 2024-09-07 11:10:33 Telephone Hamzah Solomon [facility] PROFESSIO NAL BUILDING 1.2.840.114 350.1.13.10 4.2.7.2.686 [id number] [facility] 2024-09-06 00:00:00 2024-09-06 10:45:26 Telephone Rupali Patel [facility] MEDICAL OFFICE BUILDING 1.2.840.114 350.1.13.10 4.2.7.2.686 [id number] [facility] 2024-09-04 09:54:00 2024-09-04 12:29:00 Surgery Rupali Patel [facility] 1.2.840.114 350.1.13.10 4.2.7.2.686 [id number] [facility] 2024-09-04 07:18:00 2024-09-04 12:29:00 [facility] [id number] [facility] 2024-09-04 07:18:00 2024-09-04 12:29:00 Hospital Encounter Rupali Patel [facility] 1.2.840.114 350.1.13.10 4.2.7.2.686 [id number] [facility] 2024-08-31 12:00:00 2024-08-31 12:00:00 Outpatient R RUPALI PATEL RUPALI [facility] [id number] [facility] 2024-08-31 12:00:00 2024-08-31 12:00:00 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 RUPALI PARSONS ARCADIO PATELIG [facility] 1.840.114 350.1.13.10 4.2.7.2.686 [id number] [facility] 2024-08-28 10:15:00 2024-08-28 10:15:00 Outpatient R RUPALI PATEL CRAIG [facility] [id number] [facility] 2024-08-24 00:00:00 2024-08-24 15:46:09 Prep for Procedure Rupali Patel [facility] MEDICAL OFFICE BUILDING 1..840.114 350.1.13.10 4.2.7.2.686 [id number] [facility] 2024-08-24 15:00:00 2024-08-24 15:07:31 Outpatient R RUPALI PATEL CRAIG [facility] [id number] [facility] 2024-08-24 15:00:00 2024-08-24 15:07:31 Office Visit Rupali Patel [facility] MEDICAL OFFICE BUILDING 1..840.114 350.1.13.10 4.2.7.2.686 [id number] [facility] 2024-08-14 15:20:00 2024-08-14 20:54:00 Emergency X DAMIAN ORTIZ WAKILI [facility] ERT [id number] [facility] 2024-08-14 15:20:00 2024-08-14 20:54:00 Emergency Evaristo Roblero [place] [facility] 1.840.114 350.1.13.10 4.2.7.2.686 [id number] [facility] 2024-08-07 00:00:00 2024-08-07 09:54:03 Telephone Rupali Patel [facility] MED[facility] OFF[facility] BUILDING 1.2.840.114 350.1.13.10 4.2.7.2.686 [id number] [facility] 2024-08-04 00:00:00 2024-08-04 11:37:15 Telephone Rupali Patel [facility] MEDICAL OFFICE BUILDING 1.2840.114 350.1.13.10 4.2.7.2.686 [id number] [facility] 2024-07-31 16:00:00 2024-07-31 16:00:00 Outpatient R SYDNEY VAUGHN SELENA [facility] [id number] [facility] 2024-07-31 16:00:00 2024-07-31 16:00:00 Outpatient R SYDNEY VAUGHN SELENA [facility] [id number] [facility] 2024-07-31 00:00:00 2024-07-31 11:12:36 Telephone Rupali Patel [facility] MEDICAL OFFICE BUILDING 1.2840.114 350.1.13.10 4.2.7.2.686 [id number] [facility] 2024-07-06 00:00:00 2024-07-06 14:56:17 Telephone Rupali Patel [facility] MEDICAL OFFICE BUILDING 1.2.840.114 350.1.13.10 4.2.7.2.686 [id number] [facility] 2024-07-04 00:00:00 2024-07-04 08:27:17 Telephone Rupali Patel [facility] MED[facility] OFFICE BUILDING 1.2.840.114 350.1.13.10 4.2.7.2.686 [id number] [facility] 2024-07-03 00:00:00 2024-07-03 16:31:47 Prep For Surgery Sydney Vaughn [facility] MEDICAL OFFICE BUILDING 1.2.840.114 350.1.13.10 4.2.7.2.686 [id number] [facility] 2024-07-03 16:30:00 2024-07-03 16:30:00 Office Visit Sydney Vaughn [facility] MEDICAL OFFICE BUILDING 1.2.840.114 350.1.13.10 4.2.7.2.686 [id number] [facility] 2024-07-03 16:30:00 2024-07-03 15:49:55 Outpatient R SYDNEY VAUGHNLTSYDNEY Posadas [facility] [id number] [facility] 2024-06-29 14:45:00 2024-06-29 15:00:30 Outpatient R RUPALI PATEL CRAIG [facility] [id number] [facility] 2024-06-29 14:45:00 2024-06-29 15:00:30 Office Visit R RUPALI PATEL [facility] MEDICAL OFFICE BUILDING 1.2.840.114 350.1.13.10 4.2.7.2.686 [id number] [facility] 2024-06-27 09:30:00 2024-06-27 09:30:00 Outpatient R RODERICKSYDNEYSIA SYDNEY [facility] [id number] [facility] 2024-06-20 09:30:00 2024-06-20 09:30:00 Outpatient SYDNEY DOWNS SELENA [facility] [id number] [facility] 2024-06-20 09:30:00 2024-06-20 09:30:00 Outpatient R SYDNEY VAUGHN SELENA [facility] [id number] [facility] 2024 00:00:00 2024-06-17 06:08:11 Orders Only Doctor Unassigned, [place] Doctor Unassigned, [place] [facility] 1.2.840.114 350.1.13.10 4.2.7.2.686 [id number] [facility] 2017-04-23 00:00:00 2024-06-17 03:29:53 Orders Only Doctor Unassigned, [place] Doctor Unassigned, [place] [facility] ([facility] 1.2.840.114 350.1.13.10 4.2.7.2.686 [id number] [facility] 2024 07:15:00 2024 07:15:00 Outpatient R RUPALI PATEL CRAIG [facility] [id number] [facility] 2024-06-07 00:00:00 2024-06-08 17:07:30 Telephone Rupali Patel [facility] MEDICAL OFFICE BUILDING 1..840.114 350.1.13.10 4.2.7.2.686 [id number] [facility] 2024-06-08 00:00:00 2024-06-08 11:23:35 Telephone Rupali Patel [facility] MEDICAL OFFICE BUILDING 1.2.840.114 350.1.13.10 4.2.7.2.686 [id number] [facility] 2024-06-07 11:15:00 2024-06-07 11:15:00 Outpatient R RUPALI PATEL CRAIG [facility] [id number] [facility] 2024-06-07 11:15:00 2024-06-07 11:15:00 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 1.2.840.114 350.1.13.10 4.2.7.2.686 [id number] [facility] 2024-06-01 00:00:00 2024-06-05 11:29:47 Telephone Rupali Patel [facility] MEDICAL OFFICE BUILDING 1.2.840.114 350.1.13.10 4.2.7.2.686 [id number] [facility] 2024-05-25 10:10:15 2024-05-25 23:59:00 Hospital Encounter [facility]up[facility] Pat[facility] MEDICAL OFFICE BUILDING 1.2.840.114 350.1.13.10 4.2.7.2.686 [id number] [facility] 2024-05-25 00:00:00 2024-05-25 11:54:33 Prep For Surgery Rupali Patel [facility] MEDICAL OFFICE BUILDING 1.2.840.114 350.1.13.10 4.2.7.2.686 [id number] [facility] 2024-05-25 09:45:00 2024-05-25 10:13:07 Outpatient R RUPALI PATEL CRAIG [facility] [id number] [facility] 2024-05-25 09:45:00 2024-05-25 10:13:07 Office Visit R RUPALI PATEL [facility] MEDICAL OFFICE BUILDING 1.2.840.114 350.1.13.10 4.2.7.2.686 [id number] [facility] 2024-05-10 14:00:00 2024-05-10 14:27:36 Outpatient R HAMZAH SOLOMON [facility] [id number] [facility] 2024-05-10 14:00:00 2024-05-10 14:27:36 Office Visit Hamzah Solomon [facility] NAL BUILDING 1.2840.114 350.1.13.10 4.2.7.2.686 [id number] [facility] 2024-05-09 00:00:00 2024-05-09 11:04:13 Telephone Rupali Patel [facility] 1..114 350.1.13.10 4.2.7.2.686 [id number] [facility] 2024-05-05 00:00:00 2024-05-08 09:57:23 Telephone Deandre Garland [facility] BUILDING 1.114 350.1.13.10 4.2.7.2.686 [id number] [facility] 2024-05-05 09:46:07 2024-05-05 23:59:00 Outpatient R RUPALI PATEL CRAIG [facility] [id number] [facility] 2024-05-05 09:46:07 2024-05-05 23:59:00 Hospital Encounter Rupali Patel [facility]?LEVON[facility] MEDICAL OFFICE BUILDING 1.114 350.1.13.10 4.2.7.2.686 [id number] [facility] 2024-05-05 09:15:00 2024-05-05 10:44:22 Office Visit Rupali Patel [facility]?LEVON[facility] 1.2.114 350.1.13.10 4.2.7.2.686 [id number] [facility] 2023-12-29 09:20:00 2023-12-29 09:20:00 Outpatient R HMAZAH SOLOMON [facility] [id number] [facility] 2023-05-05 10:00:00 2023-05-05 10:00:00 Outpatient R KAITLIN STEVENS STRAOHJohnie [facility] [id number] [facility] 2023-05-04 00:00:00 2023-05-04 00:00:00 Orders Only Doctor Unassigned, [place] [facility] 1.2.840.114 350.1.13.10 4.2.7.2.686 [id number] [facility] 2023-04-30 08:00:00 2023-04-30 08:00:00 Outpatient R DEANDRE GARLAND [facility] [id number] [facility] 2023-04-28 00:00:00 2023-04-28 00:00:00 Telephone Deandre Garland [place] [id number] 350.1.13.10 4.2.7.2.686 [id number] [facility] 2023-04-21 20:00:00 2023-04-21 20:00:00 Outpatient R [facility] [id number] [facility] 2023-01-29 16:20:00 2023-01-29 16:46:36 Office Visit Deandre Garland [facility] 1.2.840.114 350.1.13.10 4.2.7.2.686 [id number] [facility] 2023-01-29 13:20:00 2023-01-29 14:26:03 Outpatient R DEANDRE GARLAND [facility] [id number] [facility] 2023-01-29 13:20:00 2023-01-29 14:26:03 [facility] BU[facility] 1.2.840.114 350.1.13.10 4.2.7.2.686 [id number] [facility] 2023-01-25 12:30:00 2023-01-25 12:45:00 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 Pob, [facility] Main Deandre Garland [facility] 1.2.840.114 350.1.13.10 4.2.7.2.686 [id number] [facility] 2023-01-25 12:30:00 2023-01-25 12:30:00 Outpatient R DEANDRE GARLAND [facility] [id number] [facility] 2022-12-29 14:40:00 2022-12-29 14:52:31 [facility] [id number] 2022-12-29 14:40:00 2022-12-29 14:52:31 Office Visit Hamzah Solomon [facility] [id number] 350.1.13.10 4.2.7.2.686 [id number] [facility] 2022-12-23 10:30:00 2022-12-23 11:00:00 Office Visit Kaitlin Stevens [facility] [id number] 350.1.13.10 4.2.7.2.686 [id number] [facility] 2022-12-23 10:30:00 2022-12-23 10:30:00 Outpatient R KAITLIN STEVENS STRAHIL [facility] [id number] [facility] 2022-12-07 08:42:34 2022-12-07 23:59:00 Outpatient R DEANDRE GARLAND [facility] [id number] [facility] 2022-12-07 08:42:34 2022-12-07 23:59:00 Hospital Encounter Deandre Garland [facility] [id number] 350.1.13.10 4.2.7.2.686 [id number] [facility] 2022-11-27 00:00:00 2022-11-27 00:00:00 [facility] 1.0.114 350.1.13.10 4.2.7.2.686 [id number] [facility] 2022-11-25 15:40:00 2022-11-25 16:02:16 Outpatient R JUANITO CLARKS [facility] [id number] [facility] 2022-11-25 15:40:00 2022-11-25 16:02:16 [facility] 1..114 350.1.13.10 4.2.7.2.686 [id number] [facility] 2022-11-24 10:30:00 2022-11-24 10:45:00 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 [facility] Lab Kirstin Smith [facility] 1.20.114 350.1.13.10 4.2.7.2.686 [id number] [facility] 2022-11-24 10:30:00 2022-11-24 10:30:00 Outpatient R KIRSTIN SMITH [facility] [id number] [facility] 2022-11-24 00:00:00 2022-11-24 00:00:00 Orders Only Doctor Unassigned, [place] [facility] 1.20.114 350.1.13.10 4.2.7.2.686 [id number] [facility] 2022-11-22 00:00:00 2022-11-22 00:00:00 Telephone Deandre Garland [facility] BUILDING 1..840.114 350.1.13.10 4.2.7.2.686 [id number] [facility] 2022-11-05 00:00:00 2022-11-05 00:00:00 Patient Secure Msg Doctor Unassigned, [place] [facility] 1.840.114 350.1.13.10 4.2.7.2.686 [id number] [facility] 2022-11-04 00:00:00 2022-11-04 00:00:00 Patient Secure Msg Doctor Unassigned, [place] [facility] 1.84.114 350.1.13.10 4.2.7.2.686 [id number] [facility] 2022-10-30 11:00:00 2022-10-30 11:15:00 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 Priya, Adc Lab Main EmiliamelloJefferson [facility] BUILDING 1..840.114 350.1.13.10 4.2.7.2.686 [id number] [facility] 2022-10-30 10:00:00 2022-10-30 10:32:49 Outpatient R HAMZAH SOLOMON [facility] [id number] [facility] 2022-10-30 10:00:00 2022-10-30 10:32:49 Office Visit Hamzah Solomon [facility] BUILDING 1..840.114 350.1.13.10 4.2.7.2.686 [id number] [facility] 2022-10-29 10:00:00 2022-10-29 11:17:39 Outpatient R EDEMEKONG, PETER [facility] [id number] [facility] 2022-10-29 10:00:00 2022-10-29 11:17:39 Office Visit Deandre Garland [facility] N[facility] BUILD[facility] 1.2.840.114 350.1.13.10 4.2.7.2.686 [id number] [facility] 2022-10-22 10:00:00 2022-10-22 10:00:00 Outpatient R ELIZABETH LEVY [facility] [id number] [facility] 2022-10-06 07:45:00 2022-10-06 14:51:06 Telephonic Encounter RUBENS HATCH [facility] 1 1.2.840.114 350.1.13.58 9.2.7.2.686 [id number] [facility] 2022-10-05 10:30:00 2022-10-05 10:30:00 Outpatient [facility] [id number] [facility] 2022-10-05 10:00:00 2022-10-05 10:00:00 Outpatient [facility] [id number] [facility] 2022-10-05 09:30:00 2022-10-05 09:30:00 Outpatient [facility] [id number] [facility] 2022-10-05 09:15:00 2022-10-05 09:15:00 Outpatient RUBENS HATCH [facility] [id number] [facility] 2022-07-22 13:15:00 2022-07-22 13:48:47 Office Visit Rupali Patel [facility] 1.2.840.114 350.1.13.10 4.2.7.2.686 [id number] [facility] 2022-07-22 13:15:00 2022-07-22 13:48:47 Outpatient R RUPALI PATEL [facility] [id number] [facility] 2022-07-22 00:00:00 2022-07-22 00:00:00 Orders Only Doctor Unassigned, [place] [facility] 1.20.114 350.1.13.10 4.2.7.2.686 [id number] [facility] 2022-07-07 09:30:00 2022-07-07 12:51:14 Office Visit Rubens Hatch [facility] 1 1.0.114 350.1.13.58 9.2.7.2.686 [id number] [facility] 2022-06-18 05:59:00 2022-06-18 15:50:00 Outpatient RUBENS HATCH [id number] [facility] 2022-06-18 11:30:00 2022-06-18 11:30:00 Outpatient RUBENS HATCH [facility] [id number] [facility] 2022-05-27 15:30:00 2022-05-27 16:02:31 Outpatient R RUPALI PATEL [facility] [id number] [facility] 2022-05-27 15:30:00 2022-05-27 16:02:31 Office Visit [facility] 1.114 350.1.13.10 4.2.7.2.686 [id number] [facility] 2022-05-05 07:45:00 2022-05-05 13:08:57 Telephonic Encounter RUBENS HATCH [facility] 1 1..114 350.1.13.58 9.2.7.2.686 [id number] [facility] 2022-04-28 10:00:00 2022-04-28 10:54:44 Outpatient [facility] [id number] [facility] 2022-04-10 00:00:00 2022-04-10 00:00:00 Orders Only Doctor Unassigned, [place] [facility] 1.2.114 350.1.13.10 4.2.7.2.686 [id number] [facility] 2022-03-18 09:00:00 2022-03-18 10:31:16 Outpatient RUBENS HATCH [facility] [id number] [facility] 2022-03-11 17:31:00 2022-03-13 19:00:00 Inpatient E SOTERO MARSH [facility] [id number] [facility] 2022-03-12 17:00:00 2022-03-12 17:00:00 Outpatient RUBENS HATCH [facility] [id number] [facility] 2022-02-24 07:45:00 2022-02-24 08:55:18 Telephonic Encounter Rubens Hatch [facility] 1 ..840.114 350.1.13.58 9.2.7.2.686 [id number] [facility] 2022-02-17 07:00:00 2022-02-17 23:59:00 Outpatient RUBENS HATCH [facility] [id number] [facility] 2022-01-07 07:45:00 2022-01-07 08:00:00 Telephonic Encounter Rubens Hatch [facility] ..840.114 350.1.13.58 9.2.7.2.686 [id number] [facility] 2021-12-25 10:43:00 2021-12-25 23:59:00 [id number] 2021-10-31 09:00:00 2021-11-29 23:59:00 Outpatient TERRA PRADOBL [facility] [id number] 2021-11-11 09:15:00 2021-11-11 11:03:46 Office Visit Rubens Hatch [facility] 1 ..840.114 350.1.13.58 9.2.7.2.686 [id number] [facility] 2021-09-26 10:20:00 2021-10-25 23:59:00 Outpatient TERRA PRADO BL [id number] [facility] 2021-10-06 07:45:00 2021-10-06 08:00:00 Telephonic Encounter Rubens Hatch [facility] 1.2.114 350.1.13.58 9.2.7.2.686 [id number] [facility] 2021-09-30 10:15:00 2021-09-30 10:56:26 Office Visit Rubens Hatch [facility] 1 1.2.114 350.1.13.58 9.2.7.2.686 [id number] [facility] 2021-09-16 17:49:00 2021-09-20 19:11:00 Inpatient U VIVEK ALTAMIRANO [facility] [id number] [facility] 2021-09-17 10:30:00 2021-09-17 10:30:00 Outpatient DARIAN NEWTON [facility] [id number] [facility] 2021-08-26 01:11:00 2021-08-30 11:27:00 Inpatient E HAL OH [facility] [id number] [facility] 2021-08-19 09:15:00 2021-08-19 11:58:59 Office Visit Rubens Hatch [facility] 1 1..114 350.1.13.58 9.2.7.2.686 [id number] [facility] 2021-08-15 11:49:00 2021-08-15 23:59:00 Outpatient RUBENS HATCH [facility] [id number] [facility] [address] [facility] 2021-08-04 18:16:00 2021-08-06 15:01:00 Outpatient RUBENS HATCHSE [facility] [id number] [facility] [address] [facility] 2021-07-07 09:30:00 2021-07-07 11:03:28 Office Visit Rubens Hatch [facility] 1.2.114 350.1.13.58 9.2.7.2.686 [id number] [facility] 2020-09-23 00:00:00 2020-09-23 00:00:00 Stormy Lundy, RACQUET MAKER: [address], [address], [place] [address] , Ph. [facility] - [email or web address]_ [place] [facility] [id number] [facility] 2020-06-04 08:10:00 2020-06-04 08:10:00 Outpatient KETURAH MORA [facility] [id number] [facility] 2020-05-14 00:00:00 2020-05-14 00:00:00 Stormy Lundy, RACQUET MAKER: [address], [address], [place] [address] , Ph. [facility] - [email or web address] Direct [id number] [facility] 2020-05-07 14:30:00 2020-05-07 14:30:00 Outpatient KETURAH MORA [facility] [id number] [facility] 2020-03-05 00:00:00 2020-03-05 00:00:00 Stormy Lundy, RACQUET MAKER: [address], [address], [place] [address] , Ph. [facility] - [email or web address]_ [place] [facility] [id number] [facility] 2020-02-02 00:00:00 2020-02-02 00:00:00 Stormy Lundy, RACQUET MAKER: [address], [address], [place] [address] , Ph. [facility] - [email or web address]_ [place] [facility] [id number] [facility] 2020-01-03 00:00:00 2020-01-03 00:00:00 Stormy Lundy, RACQUET MAKER: [address], [address], [place] [address] , Ph. [facility] - [email or web address] [place] [facility] [id number] [facility] 2018-12-05 14:15:25 2018-12-05 14:54:02 Office Visit Rupali Patel [facility] 1.2.840.114 350.1.13.10 4.2.7.2.686 [id number] 2018-12-05 14:15:25 2018-12-05 14:54:02 Office Visit Rupali Patel [facility] 1.2.840.114 350.1.13.10 4.2.7.2.686 [id number] [facility] 2018-08-22 08:00:00 2018-08-22 08:00:00 Outpatient [facility] [id number] [facility] Results Test Description Test Time Test Comments Results Result Comments Source CT ABDOMEN PELVIS W CONTRAST 01:42:47 EXAMINATION: CT ABDOMEN PELVIS W CONTRASTREPORT DATE: 11/18/2024 8:28 PM ORDERING PHYSICIAN: TERELL SÁNCHEZ HISTORY: Abdominal pain, acute, nonlocalized;Nausea/vomiti ng; no BM in 17days COMPARISON(S): CT abdomen/pelvis 08/14/2024. TECHNIQUE: CT of the abdomen and pelvis with intravenous iodinatedcontrast. This examination was performed according to ALARA principles. FINDINGS:SUPPORT DEVICES: None. LOWER CHEST: Normal. ABDOMEN/PELVIS:Liver: Normal.Gallbladder/biliary : Postcholecystectomy. There is moderate intrahepaticand extrahepatic biliary ductal dilation without visualized obstructingstone or mass. This appears similar compared to 08/14/2024. Pancreas: There is unchanged trace peripancreatic fluid along the inferioraspect of the pancreatic head and uncinate process. Otherwise normal.Spleen: Normal.Adrenal glands: Unchanged 2.2 cm right adrenal nodule, previouslycharacterized as a lipid rich adrenal adenoma. The left adrenal gland isnot definitively identified. Kidneys and ureters: Prior left nephrectomy. The right kidney demonstratesno hydroureteronephrosis or urinary stone. There are a few simple rightrenal cysts measuring up to 1.3 cm at the lower pole. No suspicious renalmass.Bladder: Normal.Reproductive organs: Prior hysterectomy. No visualized adnexal mass. Stomach/bowel: The stomach is prominently distended with fluid and gas. Nopathologic bowel dilation or wall thickening. There is colonicdiverticulosis without evidence for acute diverticulitis. There is a mildlyprominent rectal stool burden measuring up to 6.9 cm in diameter. Howeverotherwise the colonic stool burden appears to be within normal limits.Appendix: Appendix not definitively visualized. No right lower quadrantinflammatory changes. Lymph nodes: There is an enlarged max hepatis lymph node measuring 1.8 cmin short axis, not significant changed from prior. Otherwise no visualizedpathologic lymphadenopathy.Peritoneum : No intraperitoneal free air. No intraperitoneal free fluid orfluid collection. There is a similar pedro mesentery appearance within thecentral abdomen..Vessels: There is severe calcific atherosclerosis of the abdominal aortaand its major branches without aneurysm. There are metallic stents seenextending from the infrarenal aorta into both common iliac arteries in theright external iliac artery. The stents appear grossly patent. The portalvein is patent. MUSCULOSKELETAL:Abdominal wall: Unchanged fat-containing left sided ventral herniameasuring 7.5 x 6.2 cm.Bones: No fracture or suspicious osseous lesion. Moderate spondylosis ofthe imaged thoracolumbar spine without any high grade osseous narrowing ofthe spinal canal. [facility] XR Shoulder <2 vw right 16:17:00 XR SHOULDER <2 VW RIGHT INDICATION: shoulder pain With axillary view COMPARISON: 10/04/2024 FINDINGS: Total reverse shoulder arthroplasty in anatomic alignment. No acutefracture or dislocation. [facility] DSU PRE-OP 19:57:40 Ordered by an unspecified provider. [facility] Thrmplas [id number] 14:47:11* Test Item Value Reference Range Interpretation Comme nts APTT Patient (test code = 3173-2) 31 26-36 DANY (test code = DANY) The [facility] patient population mean normal value for aPTT is 30 seconds. Lab Interpretation (test code = 15171-7) Normal [facility] [id number] 14:39:07* Test Item Value Reference Range Interpretation Comme nts WBC (test code = 6690-2) 5.1 4.30-11.10 RBC (test code = 789-8) 4.48 3.93-5.25 HGB (test code = 718-7) 14.4 g/dL 11.6-15.0 HCT (test code = 4544-3) 42.6 % 35.7-45.2 MCV (test code = 787-2) 95.1 fL 80.6-95.5 MCH (test code = 785-6) 32.1 pg 25.9-32.8 MCHC (test code = 786-4) 33.8 g/dL 31.6-35.1 RDW-SD (test code = 23818-2) 45.7 fL 39.0-49.9 RDW-CV (test code = 788-0) 13.1 % 12.0-15.5 PLT (test code = 777-3) 227 166-358 MPV (test code = 02495-3) 9.4 fL 9.5-12.9 L NRBC/100 WBC (test code = 7894530459) 0 0.0-10.0 NRBC x10^3 (test code = 2670486890) See_Comment [Automated messa ge] The system which generated this result transmitted reference range: 10*3/?L. The reference range was not used to interpret this result as normal/abnormal. GRAN MAT (NEUT) % (test code = 770-8) 55.5 % IMM GRAN % (test code = 1104915921) 0.4 % LYMPH % (test code = 736-9) 22.5 % MONO % (test code = 5905-5) 6.3 % EOS % (test code = 713-8) 14.5 % BASO % (test code = 706-2) 0.8 % GRAN MAT x10^3(ANC) (test code = 2431167738) 2.83 10*3/uL 1.88-7.09 IMM GRAN x10^3 (test code = 4397232211) 0.00-0.06 LYMPH x10^3 (test code = 731-0) 1.15 10*3/uL 1.32-3.29 L MONO x10^3 (test code = 742-7) 0.32 10*3/uL 0.33-0.92 L EOS x10^3 (test code = 711-2) 0.74 10*3/uL 0.03-0.39 H BASO x10^3 (test code = 704-7) 0.04 10*3/uL 0.01-0.07 Lab Interpretation (test code = 99953-0) Abnormal [facility]+ vw [id number] 16:05:31XR SHOULDER 2+ VW RIGHT INDICATION: S/P RT Reverse shoulder ROOM 4 COMPARISON: 05/05/2024 FINDINGS: Recent total reverse shoulder arthroplasty in anatomic alignment. Expectedpostoperative soft tissue swelling and subcutaneous emphysema. Skin staplesare noted.[facility] -2024-09-04 13:54:00* Test Item Value Reference Range Interpretation Comme nts ABO & RH (test code = 20) B POSITIVE IAT (test code = 1185) Negative [facility] -2024-09-04 13:54:00* Test Item Value Reference Range Interpretation Comme nts ABO & RH (test code = 20) B POSITIVE IAT (test code = 1185) Negative [facility] METABOLIC PANEL (57860)2024-08-14 23:58:41* Test Item Value Reference Range Interpretation Comme nts NA (test code = 3132706173) 137 mmol/L 135-145 K (test code = 0965439173) 4.7 mmol/L 3.5-5.0 CL (test code = 5745047099) 101 mmol/L 98-108 CO2 TOTAL (test code = 4491324166) 28 mmol/L 23-31 AGAP (test code = 1978047536) 8 2-16 BUN (test code = 6572771597) 23 mg/dL 7-23 GLUCOSE (test code = 5473690573) 83 mg/dL 70-110 CREATININE (test code = 2160-0) 1.71 mg/dL 0.50-1.04 H TOTAL BILI (test code = 0123937574) 0.6 mg/dL 0.1-1.1 CALCIUM (test code = 0661049131) 9.7 mg/dL 8.6-10.6 T PROTEIN (test code = 1440184442) 8 g/dL 6.3-8.2 ALBUMIN (test code = 1226313313) 4.5 g/dL 3.5-5.0 ALK PHOS (test code = 5337282850) 216 U/L 34-122 H ALTv (test code = 1742-6) 53 U/L 5-35 H AST(SGOT) (test code = 9033689902) 47 U/L 13-40 H eGFR (test code = 58988-8) 31.7 mL/min/1.73m2 CKD-EPI eGFR (2020). Assuming creatinine has been stable day-to-day for at least three months, the eGFR indicates Category G3b (30 - 44 mL/min/1.73 m2) Lab Interpretation (test code = 45949-8) Abnormal [facility] WITH [id number] 23:34:17* Test Item Value Reference Range Interpretation Comme nts WBC (test code = 6690-2) 6.79 4.30-11.10 RBC (test code = 789-8) 4.95 3.93-5.25 HGB (test code = 718-7) 15.7 g/dL 11.6-15.0 H HCT (test code = 4544-3) 46.9 % 35.7-45.2 H MCV (test code = 787-2) 94.7 fL 80.6-95.5 MCH (test code = 785-6) 31.7 pg 25.9-32.8 MCHC (test code = 786-4) 33.5 g/dL 31.6-35.1 RDW-SD (test code = 25236-3) 43.7 fL 39.0-49.9 RDW-CV (test code = 788-0) 12.6 % 12.0-15.5 PLT (test code = 777-3) 207 166-358 MPV (test code = 16822-2) 10.4 fL 9.5-12.9 NRBC/100 WBC (test code = 8598851011) 0 0.0-10.0 NRBC x10^3 (test code = 1202689408) See_Comment [Automated messa ge] The system which generated this result transmitted reference range: 10*3/?L. The reference range was not used to interpret this result as normal/abnormal. GRAN MAT (NEUT) % (test code = 770-8) 60.9 % IMM GRAN % (test code = 7013534277) 1.2 % LYMPH % (test code = 736-9) 24.6 % MONO % (test code = 5905-5) 5.9 % EOS % (test code = 713-8) 7.1 % BASO % (test code = 706-2) 0.3 % GRAN MAT x10^3(ANC) (test code = 1109483750) 4.14 10*3/uL 1.88-7.09 IMM GRAN x10^3 (test code = 8113659603) 0.08 10*3/uL 0.00-0.06 H LYMPH x10^3 (test code = 731-0) 1.67 10*3/uL 1.32-3.29 MONO x10^3 (test code = 742-7) 0.4 10*3/uL 0.33-0.92 EOS x10^3 (test code = 711-2) 0.48 10*3/uL 0.03-0.39 H BASO x10^3 (test code = 704-7) 0.01-0.07 Lab Interpretation (test code = 74009-3) Abnormal [facility] wo [id number] 23:01:47EXAM: CT ABDOMEN PELVIS WO CONTRAST HISTORY: 69 years-old Female; Abdominal pain, acute, nonlocalized TECHNIQUE: Contiguous axial imaging from the level of the lung basesthrough the iliac crests was performed without contrast. Coronal andsagittal reconstructions were obtained. COMPARISON: CT abdomen pelvis without contrast from July 05, 2016 FINDINGS:LUNGS: No pleural effusion, consolidation, or mass. LIVER: lSmooth liver contour. GALLBLADDER AND BILIARY TREE: Status post cholecystectomy. Mildintrahepatic and extrahepatic biliary ductal dilation likely due toreservoir phenomenon postcholecystectomy.. SPLEEN: No focal mass or splenomegaly. PANCREAS: No ductal dilation or calcifications. ADRENAL GLANDS: Slight increase in size of right adrenal gland 2.4 cmnodule measuring 8.6 Hounsfield units, consistent with benign adenoma andfor which no additional follow-up is recommended. The left adrenal gland isnot discretely identified. GENITOURINARY: Status post left nephrectomy. Unchanged 1.3 cm simple renalcortical cyst in the right inferior pole. No hydronephrosis ornephrolithiasis. Diffusebladder wall thickening. Status post hysterectomy. PERITONEUM AND RETROPERITONEUM: No free fluid orfree intraperitoneal air.Fat- containing left spiculated hernia. There is fat stranding throughoutthe central mesentery. LYMPH NODES: No lymphadenopathy. GI TRACT: No dilated bowel, transition point, or evidence of obstruction.Sigmoid diverticulosis. Possible wall thickening along the second and thirdpart of the duodenum. VESSELS: Aortobiiliac stent graft. Moderate calcified atherosclerosis inthe infrarenal aorta. BONES AND SOFT TISSUES: No acute fracture, dislocation, or aggressiveosseous lesion. There is skin thickening and soft tissue density along thevulva (2, 139).[facility] [id number] 14:26:37Ordered by an unspecified provider.[facility] 1 [id number] 01:31:27History: preop for surgery Room 5. Exam: XR CHEST 1 VW Date: 05/25/2024 10:10 AM Ordering provider: RUPALI PATEL Comparison: None available. Findings: Frontal view of the chest is obtained. The cardiac silhouette is normal in size. No evidence of infiltrate,pleural effusion, CHF, or pneumothorax. There is a surgical anchor in theright humeral head.[facility] History and Physical Notes Date/Time Note Provider Source 2022-11-22 12:33:23 Formatting of this n ote might be different from the original. Lab Result Vitamin D deficiency - VITAMIN D, 25-OH; Future - ergocalciferol, vitamin d2, 1,250 mcg (50,000 unit) capsule; Take 1 capsule by mouth weekly. Dispense: 26 capsule; Refill: 1 - calcium carbonate 500 mg calcium (1,250 mg) tablet; Take 1 tablet by mouth in the morning. Dispense: 90 tablet; Refill: 1 [facility] - Health Notes Date/Time Note Provider Source 2024-11-18 17:19:40 Florinda states: "I have gastroparesis. I have a solid ulcer from my esophagus to my duodenal bulb. The duodenal bulb is so inflamed." Reports vomiting daily since July 04. Last bm 17 days ago. GI: Meah. Sunshine Jarquin RN [facility] 2024-10-06 08:45:00 Images from the original note were not included. Venipuncture collection performed by clean technique on the left anticubitus. Total of 1 attempts were made. Slight pressure and a bandage/dressing were applied to the site(s). The patient experienced no complications. The following specimens were processed according to instructions and sent to [facility] laboratories per lab order on 10/06/2024 : LT BLUE 1 SST 1 RED LAV 1 PPT DK GREEN (LiHep) DK GREEN (SodH) YORK DK BLUE (K2) DK BLUE (S) ACD Blood Culture NIPT/NTD Patient presented with specimen for drop-off and was identified by and name. Collection information/ total volume were documented accordingly. The following specimens were sent to [facility] laboratories per lab order on 10/06/2024 : 24 hour urine Random urine Stool 4 REF 2 RT Swab Other [facility] 2024-10-03 15:12:21 Fax received with external med records from [facility], Placed in MD folder. Danisha Lara MA [facility] 2024-09-13 11:45:00 Images from the original note were not included. Venipuncture collection performed by clean technique on the left anticubitus. Total of 1 attempts were made. Slight pressure and a bandage/dressing were applied to the site(s). The patient experienced no complications. The following specimens were processed according to instructions and sent to [facility] laboratories per lab order on 09/13/24: LT BLUE SST 1 RED LAV 1 PPT DK GREEN (LiHep) DK GREEN (SodH) YORK DK BLUE (K2) DK BLUE (S) ACD Blood Culture NIPT/NTD [facility] 2024-09-12 14:33:22 I contacted [facility] to verify receipt of fax from us. Loan Assistant states they received the fax. I contacted pt and informed her that [facility] did receive our fax. Pt verbalized understanding and had no further questions. Danisha Lara MA [facility] 2024-09-12 13:30:23 Zoe Jones is a 69 year old female Pt called back regarding clearance for procedure in the morning. States the office has not received clearance. Please advise. Neela Owens [facility] 2024-09-08 14:53:38 Clearance approved per . Kiersten to [facility], confirmation pending. Danisha Lara MA [facility] 2024-09-07 11:09:49 Fax received from [facility] requesting cardiac clearance. Placed in MD folder for review. Danisha Lara MA [facility] 2024-09-06 10:45:18 PT referral placed [facility] 2024-09-04 10:33:55 CALLED AND UPDATED PT'S FRIEND, JUDD, AT 1034 - ZHOU BOWLING. 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 Item Serial No. Java Lead Architect Lot No. LRB No. Used Action BASEPLATE GLENOSPHERE MINI COMP REV SHOULDER SYSTEM W/ TAPER #[id number] - [id number] Joint Prosthesis BASEPLATE GLENOSPHERE MINI COMP REV SHOULDER SYSTEM W/ TAPER #[id number] [employer] [id number] Right 1 Implanted SCREW BONE CMPRH TI 3.5MM 30MM CNTR HX HD 6.5MM STERIL #[id number] - [id number] SCREW SCREW BONE CMPRH TI 3.5MM 30MM CNTR HX HD 6.5MM STERIL #[id number] [employer] [id number] Right 1 Implanted COMPREHENSIVE REVERSE SHOULDER GLENOSPHERE 36MM STD BIOMET 1 #[id number] - [id number] Joint Prosthesis COMPREHENSIVE REVERSE SHOULDER GLENOSPHERE 36MM STD BIOMET 1 #[id number] [employer] [id number] Right 1 Implanted SCREW BONE CMPRH TI 3.5MM 15MM LOCK FIX ANGLE HX HD 4.75MM #[id number] - [id number] SCREW SCREW BONE CMPRH TI 3.5MM 15MM LOCK FIX ANGLE HX HD 4.75MM #[id number] [employer] [id number] Right 1 Implanted SCREW BONE CMPRH TI 3.5MM 20MM LOCK FIX ANGLE HX HD 4.75MM #[id number] - [id number] SCREW SCREW BONE CMPRH TI 3.5MM 20MM LOCK FIX ANGLE HX HD 4.75MM #[id number] [employer] [id number] Right 1 Implanted SCREW BONE CMPRH TI 3.5MM 20MM LOCK FIX ANGLE HX HD 4.75MM #[id number] - [id number] SCREW SCREW BONE CMPRH TI 3.5MM 20MM LOCK FIX ANGLE HX HD 4.75MM #585655 160819 [employer] [id number] Right 1 Implanted SCREW BONE CMPRH TI 3.5MM 15MM LOCK FIX ANGLE HX HD 4.75MM #[id number] - [id number] SCREW SCREW BONE CMPRH TI 3.5MM 15MM LOCK FIX ANGLE HX HD 4.75MM #979376 256063 [employer] [id number] Right 1 Implanted STEM HUM 83MM 9MM CMPRH POR MN SHLDR RVRS SYS #[id number] - [id number] Joint Prosthesis STEM HUM 83MM 9MM CMPRH POR MN SHLDR RVRS SYS #[id number] [employer] [id number] Right 1 Implanted BEARING HUMRL 36MM CMPRH STD SHLDR PROLNG REVERSE #[id number] - [id number] BEARING HUMRL 36MM CMPRH STD SHLDR PROLNG REVERSE #[id number] [employer] [id number] Right 1 Implanted TRAY HUMRL CMPRH STD SHLDR REVERSE #[id number] - [id number] TRAY HUMRL CMPRH STD SHLDR REVERSE #[id number] [employer] [id number] Right 1 Implanted Patient's Condition: good Findings: above Any other important information: none Please see dictated operative report for additional detail. [facility] 2024-08-31 12:00:00 Images from the original note were not included. Venipuncture collection performed by clean technique on the right anticubitus. Total of 1 attempts were made. Slight pressure and a bandage/dressing were applied to the site(s). The patient experienced no complications. The following specimens were processed according to instructions and sent to [facility] laboratories per lab order on 08/31/2024 : LT BLUE SST 1 RED LAV 1 PPT DK GREEN (LiHep) DK GREEN (SodH) YORK DK BLUE (K2) DK BLUE (S) ACD Blood Culture NIPT/NTD Patient has been identified by and name and was provided with cup, antiseptic towelette, and clean catch instructions. 2 urine specimen(s) sent. Unpreserved 2 Urine Culture Aptima tube Other urine T [facility] 2024-08-25 09:35:39 Images from the original note were not included. Your Ortho procedure is at [facility] on 09/04/24. The address is [address] [place] [address], [id number]. [facility] nursing staff will call you the workday before your procedure to let you know what time to arrive. When you arrive, please go inside that door and check in at the desk. Please note: You may not travel home alone and that includes in a taxi or by bus. We must speak to your Responsible Adult (who will be picking you up) the morning of your procedure, before the start of your procedure. This person must be an adult over the age of 18 years of age. Do not eat any solid food after midnight the night before surgery. You may have sips of clear liquids such as water, gatorade, and sprite up until two hours before your scheduled procedure. You may take your medications with a sip of water as directed by physician. Metoprolol and Amlodipine Anticoagulants will be per physician guidance. Medication Note(s)/Instructions: Stated that she stopped her Plavix 08/23/24 Pending screening, we may test for COVID. If a patient tests positive, their cases are cancelled and/or rescheduled. COVID SCREENING NOTE: Denies COVID symptoms, no testing required. Patient verbalized understanding of pre-op instructions and voiced no further questions at this time. [facility] 2024-08-14 20:53:20 PT D/C home. GCS15, VS stable. Given D/C paperwork. Pt ambulatory at time of discharge. Pt educated on med usage, follow up care, s/s worsening condition, need for hydration. Pt verbalized understanding. Pt ambulated from ED in NAD with family. Prescription x 1 sent to pharmacy. Bbea Anderson RN [facility] - Health 2024-08-14 20:32:11 [facility] ED Transfer of Care Note. Off-going Physician:Dr Roblero Time of Transfer of Care: 8:32 PM Summary: Zoe Jones is a 69 year old female presenting with chief complaint of N/V/D and abdominal cramps after eting fajitas from a restaurant. No fever or chills. Diarrhea improving to one a day at this time. Has not been prescribed any antiemetics. Pending prior to disposition: Reevaluation Current interventions: Medications - No data to display Results: Labs Reviewed CBC WITH DIFF - Abnormal; Notable for the following components: Result Value HGB 15.7 (*) HCT 46.9 (*) IMM GRAN x10 3 0.08 (*) EOS x10 3 0.48 (*) All other components within normal limits COMP. METABOLIC PANEL (92045) - Abnormal; Notable for the following components: CREATININE 1.71 (*) ALK PHOS 216 (*) ALTv 53 (*) AST(SGOT) 47 (*) All other components within normal limits URINALYSIS - Abnormal; Notable for the following components: COLOR Straw (*) BLOOD 1+ (*) PROTEIN 100 mg/dL (*) All other components within normal limits CT Abdomen pelvis wo contrast Final Result 1. Evaluation is limited due to lack of IV contrast. 2. Urinary bladder mural thickening may represent cystitis. 3. There is distal colonic diverticulosis. Left lower quadrant fat-containing abdominal wall hernia. Pedro central mesentery possibly representing sclerosing mesenteritis. Preliminary Report Dictated by Resident: Prakash Zamora MD., have reviewed this study and agree with the above report. Procedures: Procedures Additional Notes: ED Course as of 08/14/242038 Mon Aug 14, 2024 1905 Pt endorsed to . Called multiple times in lobby no answer. [DN] ED Course User Index [DN] Evaristo Roblero MD Diagnosis/Impression as of 08/14/242038 Abdominal pain, unspecified abdominal location Nausea and vomiting, unspecified vomiting type Chronic kidney disease, unspecified CKD stage Transaminitis Sclerosing mesenteritis Hernia of anterior abdominal wall Medical Decision Making Zoe Jones is a 69 year old female with numerous medical conditions as listed below who presents to the ED wit abdominal cramps, N/V/D after eating fajitas at a restaurant Problems Addressed: Abdominal pain, unspecified abdominal location: acute illness or injury Details: Diffuse cramps associated with N/V/D None at this ED presentation Chronic kidney disease, unspecified CKD stage: chronic illness or injury Details: Will monitor closely Hernia of anterior abdominal wall: chronic illness or injury Details: No strangulation or obstruction Nausea and vomiting, unspecified vomiting type: acute illness or injury Details: Pt was not prescribed antiemetics. Diarrhea has almost completely resolved Will prescribe Zofran and monitor pt misael Sclerosing mesenteritis: undiagnosed new problem with uncertain prognosis Details: Does not have symptoms of fever, weight loss or significant changes n=in bowel habits.. Will therefore follow pt closely Abx recently complete by pt Will refer to GI/PCP [facility] follow-up Transaminitis: acute illness or injury Details: Most likely secondary to dehydration, medications Will monitor closely Pt referred to PCP Amount and/or Complexity of Data Reviewed Labs: ordered. Decision-making details documented in ED Course. Radiology: ordered. Decision-making details documented in ED Course. Risk OTC drugs. Prescription drug management. Disposition: Discharged Home Social Determinants of Health: None ED Disposition ED Disposition Discharge Condition Stable Comment -- Contact information for follow-up Latia Rivera DO Specialty: FAMILY MEDICINE Relationship: PCP - General [address] [facility] [address] [facility] Specialty: Gastroenterology [address] [facility] [id number] [facility] 2024-08-14 19:05:16 Dr. Roblero report pt called multiple times and no answer. Patricia Samano RN [facility] 2024-08-14 15:16:03 Pt. Presents to ED ambulatory with steady gait C/O abdominal pain to all quadrants since 08/04/24; pt. Reports eating fajitas and has had N/V/D since; pt. Reports Dr. Rivera gave Rxs for dicyclomine, cipro, & omeprazole; pt. Reports she contacted PCP today & instructed her to come to ER for CT scan; pt. Denies urinary symptoms Rain Sim RN [facility] 2024-08-07 09:50:18 Patient called regarding reschedule surgery, approval letter uploaded to Media. Made pt aware that we are going to need a referral since she has an HMO plan from PCP to be able to reschedule H&P appointment with [facility]. Patient verbalized understand ment and will obtain referral from PCP. Maynor Paz [facility] 2024-08-04 11:21:11 Surgery is cancelled due to patient being HMO, and we do not have the referral. Spoke with patient who was under the impression it was already cancelled. [facility] 2024-07-06 14:55:58 Provider note available today, faxed to insurance per RCO team. [facility] 2024-07-06 14:36:52 Auth denied for upcoming procedure on 08/07/2024. Patient is scheduled for Right Shoulder Arthroplasty CPT 32568. Denial letter has been loaded into patients chart and emailed to Janine Echevarria RN for review. N Neal MA [facility] 2024-07-04 08:25:42 Spoke with patient. Surgery rescheduled for 08/07/24 per patient request. Patient appointment changed for updated H&P. [facility] 2024-07-04 08:11:41 Pt is wanting someone to contact her regarding her surgery date, she is needing to change it to August 07 if possible. Please contact pt to assist. [phone] Pt call back number. N Diaz [facility] 2024-06-08 13:17:13 Please cancel surgery at this time. We can attempt an appeal once we have the denial. Patient can also work with PCP to document attempt at smoking cessation and PCP can send us confirmation. Insurance needs written documentation of patient on an active smoking cessation program. [facility] 2024-06-08 13:08:38 Is this patient surgery being canceled? So I can email our [facility] scheduling team to cancel the surgery. Please advise. [facility] Suki Sabillon [facility] 2024-06-08 11:06:54 Angela Cruz Transferred call to me and I was able to speak to both patient and Reshina from [facility]. She sated that authorization was denied because it was not medically necessary and proceeded to let patient know that we have not provided proper documentation to support the surgery. I let Hilary know that clinical documentation has been submitted. I asked her if she can pull up the information. She said she does not have access to that information and told patient she needed to reach out to their provider for further explanation on why the provider denied the surgery. Patient was very angry and confused by [facility] assisted sales representative and wanted to know what was going on. She stated she was coming into the clinic to speak to me. Patient came into clinic and I was able to explain that insurance has denied her surgery because they are requesting a "smoking cessation program prior to the surgical procedure" I also let her know that sydney had a peer to peer with [facility] provider and let her know that per their [facility] policy they had to deny the surgery since patient is smoker. Patient express she has had other surgeries in the past and this has not been an issue before. She was going to talk to her patent attorney. At this time we are not able to proceed with surgery since we can not get approval from [facility] Insurance N Delong [facility] 2024-06-08 09:29:47 [facility] insurance is wanting to know why this PA was denied. She has a surgery, and the denial on insurance end is showing as medically not necessary? Insurance believes there may have been a mistake on the paperwork. Wanting to speak to clinical. Miracle is the person calling. N Diaz [facility] 2024-06-08 09:11:41 Thank you. I will wait for an update to cancel. Patient has to show she is in a smoking cessation program and I think not be smoking for a few weeks. Patient should seek PCP for assistance. [facility] 2024-06-08 09:01:54 I called patient to inform her the insurance has denied her surgery. She does not want me to cancel the surgery just yet because she is calling her insurance to see what she can do on her end. [facility] Suki Sabillon [facility] 2024-06-08 08:19:28 Peer to Peer completed yesterday. Patient denied surgery until no longer smoking. Insurance to send denial letter. Can you please update patient. [facility] 2024-06-07 11:15:00 Images from the original note were not included. Venipuncture collection performed by clean technique on the left anticubitus. Total of 1 attempts were made. Slight pressure and a bandage/dressing were applied to the site(s). The patient experienced no complications. The following specimens were processed according to instructions and sent to [facility] laboratories per lab order on 06/07/2024 : LT BLUE SST 1 RED LAV 2 PPT DK GREEN (LiHep) DK GREEN (SodH) YORK DK BLUE (K2) DK BLUE (S) ACD Blood Culture NIPT/NTD Patient has been identified by and was provided with cup, antiseptic towelette, and clean catch instructions. 1 urine specimen(s) sent. Unpreserved 1 Urine Culture Aptima tube Other urine [facility] 2024-06-07 08:26:28 I have scheduled a P2P with Sydney DAMON for the patients upcoming surgery scheduled on 2024. I have provided the phone number of [phone]. It is scheduled for today 06/07/2024 at 4:45pm. I spoke to: Jasmin Hernandez Tracking #[id number] Ph. [phone] [facility] 2024-06-05 10:16:30 Patient states her pcp is Dr. Lo. I have updated her chart. She will be requesting the letter from Dr. Lo. [facility] Suki Sabillon [facility] 2024-06-02 17:03:32 Clinic to schedule patient for appointment. Advise to stop smoking if actively/every day smoker prior to appointment. [facility] 2024-06-02 08:29:38 Good morning, patient is pending a total shoulder arthroplasty, and needs a letter about smoking status and cessation program. Can you please address for surgery? [facility] 2024-06-01 17:13:59 Images from the original note were not included. Cohere the website needing to obtain auth for patients surgery is requesting a letter stating patients current smoking status and/ or any referral to a smoking cessation program prior to the surgical procedure. Please advise. [facility] 2024-05-07 14:18:48 Consult/Referral Chronic right shoulder pain - Referral Orthopaedic Surgery [facility] 2024-05-05 10:46:36 Please review, complete, and sign if appropriate. N Fishman LVN [facility] 2024-05-05 09:49:26 Patient needing a generic referral to see Rupali Patel for right shoulder. ERCIAL SERVICE TECHNICIAN Maynor Paz [facility] 2023-04-28 14:07:40 Lab results received, [facility], placed in provider basket for review. ERCIAL SERVICE TECHNICIAN Mariama Hidalgo [facility] 2022-11-27 11:55:39 Formatting of this n ote might be different from the original. Pt has been scheduled on 12/23/22. - PM 11/27/22 Norberto Lombardo [facility] 2022-11-27 09:31:41 Formatting of this n ote might be different from the original. Images from the original note were not included. Notified patient per Dr Solomon: Hamzah Solomon MD P Cardiology Nurse Please make an appointment with sleep clinic Dr. Stevens for obstructive sleep apnea. Patient verbal understanding. Routing to Cardio PSS to please assist with scheduling. Ginger Owens MA [facility] 2022-11-25 15:40:00 Addended by: HAMZAH SOLOMON MD on: 11/26/2022 11:20 AM Modules accepted: Orders T [facility] 2022-11-23 15:52:50 Formatting of this n ote might be different from the original. Spoke with patient, verbalized understanding of current lab results, informed patient of prescription and proper dosing. Informed patient of the future lab that needs to be drawn 1 week prior to appointment. Gisela Moncada RN [facility]
[2024-11-29] MEDS ORDERED: DIPHENHYDRAMINE 50 MG/ML VIAL ONE (10:53)
[2024-11-29] MEDS ORDERED: FAMOTIDINE 20 MG/2 ML VIAL IV ONE (10:53)
[2024-11-29] MEDS ORDERED: NA CHLORIDE 0.9% 1,000 ML ONE ×2 (10:53→15:45)
[2024-11-29] MEDS ORDERED: METOCLOPRAMIDE 10 MG/2mL INJ ONE ×2 (10:53→15:45)
--- NOTE | 2024-11-29 11:25 | RAD REPORT ---
EXAMINATION: Abdomen Pelvis Wo Contrast CLINICAL INDICATION: Female, 69 years old.ABD PAIN TECHNIQUE: CT abdomen and pelvis was performed, without IV contrast, as per department protocol. Axia l, sagittal and coronal reconstructions were obtained. One or more of the following dose reduction techniques were used: Automated exposure control, adjustment of the mA and/or kV according to the pat ient size, and/or iterative reconstruction. Unless otherwise specified, incidental findings do not require dedicated imaging follow-up. [id number]. IV CONTRAST: Not administered. COMPARISON: 02/22/2024 FINDINGS: The lack of intravenous contrast limits the sensitivity of this exam for evaluation of solid visceral organs, vascular structures, and retroperitoneum. LOWER CHEST: No acute process identified.Small pericardial effusion UPPER GI: The stomach is distended. There is possible thickening at the pyloric region and proximal d uodenum. LIVER: Intrahepatic biliary duct dilatation which is increased. GALLBLADDER/BILE DUCTS: Cholecystectomy. Moderate extrahepatic biliary ductal dilatation which is inc reased from prior. There is a caliber change at the pancreatic head.. ? PANCREAS: Atrophy but no acute findings. SPLEEN: Unremarkable. ADRENALS: Benign right adrenal nodule measuring 2.7 cm. KIDNEYS AND URETERS: No hydronephrosis.Limited evaluation for renal lesions in the absence of IV cont rast.Absent left kidney. Probable right renal cyst. ABDOMINAL AORTA AND OTHER VESSELS: Severe atherosclerotic changes. No aortic aneurysm. Iliac stents PERITONEUM: Nonspecific mesenteric edema which could indicate mesenteric panniculitis. No lymphadenop athy. LYMPH NODES: No pathologic lymphadenopathy. ABDOMINAL WALL: Left lateral ventral hernia SMALL BOWEL/COLON: Small bowel has normal course and caliber. No colonic wall thickening or pericolon ic inflammatory changes. URINARY BLADDER: Underdistended but grossly unremarkable. REPRODUCTIVE ORGANS: No pathologic process. MUSCULOSKELETAL: No acute or suspicious osseous abnormality. ADDITIONAL FINDINGS: None. IMPRESSION: 1. Increased intra and extrahepatic biliary duct dilatation. The etiology is uncertain, possibly from choledocholithiasis, stricture, or malignancy. Recommend further evaluation with MRI with and without contrast with MRCP sequences. 2. Increased gastric distention with fluid with possible thickening at the peripyloric region versus underdistention. This could be causing a gastric outlet obstruction versus the patient's reported history of gastroparesis. Consider endoscopy.
[2024-11-29 11:27] LABS: Absolute Lymphocytes (CBC) 2.2 K/uL (0.7-4.9); Hematocrit 52.3 % (36.0-45.0); Hemoglobin 18.0 g/dL (12.0-15.0); MCH 31.6 pg (27.0-35.0); MCHC 34.5 g/dL (32.0-36.0); MCV 91.7 fL (80-100); MPV 8.2 fL (7.6-11.3); Nucleated RBC Absolute Count 0.0 (0-0); Nucleated Red Blood Cells % 0.1 % (0-0); RBC Red Blood Cell Count 5.70 M/uL (3.86-4.86); White Blood Count 9.30 thou/uL (4.3-10.9)
[2024-11-29 11:54] LABS: ALT/SGPT 20.0 U/L (13-56); Albumin 3.6 g/dL (3.4-5.0); Albumin/Globulin Ratio 0.9 (1.1-1.8); Alkaline Phosphatase 106.0 U/L (45-117); Anion Gap 10.5 mEq/L (5.0-15.0); BUN Blood Urea Nitrogen 31.0 mg/dL (7-18); Globulin 4.0 g/dL (2.3-3.5); Glucose Level 86.0 mg/dL (74-106); Lipase 99.0 U/L (13-75)
[2024-11-29 11:55] LABS: AST/SGOT 31.0 U/L (15-37); Potassium 3.5 mEq/L (3.5-5.1)
[2024-11-29] MEDS: PANTOPRAZOLE 40 MG INJ IVP SCH (13:14)
[2024-11-29] MEDS ORDERED: SODIUM CHLORIDE 0.9% 10ML INJ IV PRN (13:14)
--- NOTE | 2024-11-29 13:14 | ER ---
Nurse's Notes [facility]ly [facility] Name: Zoe Jones Age: 69 yrs Sex: Female : 1955 Arrival Date: 11/29/2024 Time: 10:17 Bed 8 Private MD: Diagnosis: Nausea with vomiting, unspecified;Dehydration Presentation: 11/29 10:27 Chief complaint: Patient states: Abdominal pain since July 04 with N/V. Coronavirus ll1 screen: Client denies travel out of the [place] in the last 14 days. At this time, the client does not indicate any symptoms associated with coronavirus-19. Ebola Screen: Patient denies travel to an Ebola-affected area in the 21 days before illness onset. Initial Sepsis Screen: Does the patient meet any 2 criteria? No. Patient's initial sepsis screen is negative. Does the patient have a suspected source of infection? No. Patient's initial sepsis screen is negative. Risk Assessment: Do you want to hurt yourself or someone else? Patient reports no desire to harm self or others. Onset of symptoms was July 04, 2024. 10:27 Method Of Arrival: Ambulatory ll1 10:27 Acuity: ZULEMA 3 ll1 Triage Assessment: 10:30 General: Appears in no apparent distress. Behavior is cooperative, appropriate for age, bp anxious. 10:30 Pain: Complains of pain in abdomen. EENT: No deficits noted. Neuro: No deficits noted. bp Cardiovascular: No deficits noted. Respiratory: No deficits noted. GI: Reports lower abdominal pain, nausea, vomiting. : No signs and/or symptoms were reported regarding the genitourinary system. Derm: No deficits noted. Musculoskeletal: No deficits noted. Historical: - Allergies: 10:24 Codeine; ll1 10:24 Iodine; ll1 10:24 Sulfa (Sulfonamide Antibiotics); ll1 - PMHx: 10:24 Hypertension; Ranal CA; Renal Cancer; ll1 - PSHx: 10:24 Cholecystectomy; hysterectomy; kidney; right ovary; right shoulder; ll1 - Immunization history:: Adult Immunizations up to date. - Social history:: Smoking status: Patient reports the use of cigarette tobacco products, smokes .25 packs per day. Screenin:30 [facility] ED Fall Risk Assessment (Adult) History of falling in the last 3 months, bp including since admission No falls in past 3 months (0 pts) Confusion or Disorientation No (0 pts) Intoxicated or Sedated No (0 pts) Impaired Gait No (0 pts) Mobility Assist Device Used No (0 pt) Altered Elimination No (0 pt) Score/Fall Risk Level 0 - 2 = Low Risk Oriented to surroundings. Abuse screen: Denies threats or abuse. Denies injuries from another. Nutritional screening: No deficits noted. Tuberculosis screening: No symptoms or risk factors identified. Assessment: 10:30 General: SEE TRIAGE NOTE. bp 12:00 Reassessment: No changes from previously documented assessment. Patient is alert, bp oriented x 3, equal unlabored respirations, skin warm/dry/pink. Pain: Complains of pain in abdomen. GI: Abdomen is non-distended. 14:00 Reassessment: Patient appears in no apparent distress at this time. Patient is alert, bp oriented x 3, equal unlabored respirations, skin warm/dry/pink. Vital Signs: 10:27 BP 165 / 75; Pulse 91; Resp 16; Temp 97.5; Pulse Ox 97% on R/A; Weight 69.4 kg; Height ll1 5 ft. 4 in. ; Pain 6/10; 12:50 BP 170 / 69; Pulse 68; Resp 16 S; Pulse Ox 97% on R/A; kc6 15:01 BP 163 / 76; Pulse 67; Resp 16; Temp 98; Pulse Ox 97% ; bp 10:27 Body Mass Index 26.26 (69.40 kg, 162.56 cm) ll1 10:27 Pain Scale: Adult ll1 ED Course: 10:23 Patient arrived in ED. cj3 10:24 Arm band placed on. ll1 10:28 Triage completed. ll1 10:30 Patient has correct armband on for positive identification. bp 10:32 Kenia Pickard FNP-C is PHCP. kb 10:32 Harshad Joiner MD is Attending Physician. kb 10:36 Timothy Ramirez, ZHOU is Primary Nurse. bp 11:03 CT Abd/Pelvis - Without Contrast In Process Unspecified. EDMS 11:18 Initial lab(s) drawn, by ED staff, sent to lab. Inserted saline lock: 22 gauge in right ar8 forearm, using aseptic technique. Blood collected. Flushed with 10 mL NS. 11:20 CBC with Diff Sent. ar8 11:20 CMP Sent. ar8 11:20 Lipase Sent. ar8 13:14 Prince Carlisle MD is Hospitalizing Provider. kb 15:05 No provider procedures requiring assistance completed. Patient admitted, IV remains in bp place. 15:06 Provided Education on: NA. bp Administered Medications: 11:20 Drug: Famotidine IVP 20 mg IVP once; dilute with 10 mL 0.9% NaCl; give over 2 minutes ar8 Route: IVP; Infused Over: 3 mins; Site: right forearm; 15:07 Follow up: Response: No adverse reaction bp 11:20 Drug: NS 0.9% IV 1000 ml IV at 1 bolus Per protocol; to be given as a bolus over 60 ar8 minutes Route: IV; Rate: 1 bolus; Site: right forearm; 15:07 Follow up: IV Status: Completed infusion bp 11:25 Drug: metoCLOPramide IVP 10 mg IVP once; over 1 to 2 minutes Route: IVP; Infused Over: ar8 3 mins; Site: right forearm; 15:07 Follow up: Response: No adverse reaction bp 11:28 Drug: diphenhydrAMINE IVP 12.5 mg IVP once Route: IVP; Infused Over: 4 mins; Site: ar8 right forearm; 15:07 Follow up: Response: No adverse reaction bp Medication: 15:06 VIS not applicable for this client. bp Outcome: 13:14 Decision to Hospitalize by Provider. kb 15:05 Admitted to ER Hold. Please see [facility] for further documentation. bp 15:05 Condition: stable 15:05 Instructed on the need for admit, 16:34 Patient left the ED. iw Signatures: Dispatcher [employer] EDAL Kenia Pickard, CLINICAL EDUCATION SPECIALIST-C CLINICAL EDUCATION SPECIALIST-Ckb Ethel Hidalgo RN RN iw Timothy Ramirez RN RN bp Graham Kc RN RN ll1 Lisa Cardona RN RN kc6 Virginie Ware 3 Arsen Thao RN RN ar8 Corrections: (The following items were deleted from the chart) 11:39 11:38 metoCLOPramide IVP 10 mg IVP in right forearm over 3 mins ar8 ar8
--- NOTE | 2024-11-29 13:14 | EDPHYS ---
Physician Documentation [facility] Name: Zoe Jones Age: 69 yrs Sex: Female : 1955 Arrival Date: 11/29/2024 Time: 10:17 Bed 8 Private MD: ED Physician Harshad Joiner HPI: 11/29 13:20 This 69 yrs old Female presents to ER via Ambulatory with complaints of kb Nausea/Vomiting, Abdominal Pain. 13:20 PT is a 69 year old female who presents for nausea and vomiting that started in July. kb States she has been seen by Dr Brown and had several tests done, but a cause has not been found. Was seen at [facility] ER on 11/16/24 and was told to follow up with PCP. Pt had her follow up with Dr Rivera today, who told her to come her for admission for TPN. Pt reports weight loss of 60 pounds. Reports she has been unable to tolerate anything by mouth. Pt is scheduled for more tests with Dr Brown on Wednesday and Wednesday, but Dr Rivera did not want her to wait. . Historical: - Allergies: 10:24 Codeine; ll1 10:24 Iodine; ll1 10:24 Sulfa (Sulfonamide Antibiotics); ll1 - PMHx: 10:24 Hypertension; Ranal CA; Renal Cancer; ll1 - PSHx: 10:24 Cholecystectomy; hysterectomy; kidney; right ovary; right shoulder; ll1 - Immunization history:: Adult Immunizations up to date. - Social history:: Smoking status: Patient reports the use of cigarette tobacco products, smokes .25 packs per day. ROS: 13:19 Constitutional: As per HPI kb Exam: 13:19 Constitutional: This is a well developed, well nourished patient who is awake, alert, kb and in no acute distress. Head/Face: Normocephalic, atraumatic. ENT: Moist Mucous membranes Cardiovascular: Regular rate Respiratory: Respirations even and unlabored. No increased work of breathing. Talking in full sentences Skin: Warm, dry with normal turgor. Normal color. MS/ Extremity: Pulses equal, no cyanosis. Neurovascular intact. Full, normal range of motion. Neuro: Awake and alert, GCS 15, oriented to person, place, time, and situation. 13:19 Abdomen/GI: Inspection: abdomen appears normal, Bowel sounds: normal, Palpation: soft, in all quadrants, moderate abdominal tenderness, in the right upper quadrant and right lower quadrant, Vital Signs: 10:27 BP 165 / 75; Pulse 91; Resp 16; Temp 97.5; Pulse Ox 97% on R/A; Weight 69.4 kg; Height ll1 5 ft. 4 in. ; Pain 6/10; 12:50 BP 170 / 69; Pulse 68; Resp 16 S; Pulse Ox 97% on R/A; kc6 15:01 BP 163 / 76; Pulse 67; Resp 16; Temp 98; Pulse Ox 97% ; bp 10:27 Body Mass Index 26.26 (69.40 kg, 162.56 cm) ll1 10:27 Pain Scale: Adult ll1 MDM: 10:33 Medical Screening Exam initiated kb 13:18 Differential diagnosis: Nonspecific abd pain, gastritis, viral gastroenteritis, kb dehydration, abnormal electrolytes. Data reviewed: vital signs, nurses notes. Consideration of Admission/Observation Patient was admitted/placed on observation. Escalation of care including admission/observation considered. Management of patient was discussed with the following: Hospitalist: Dr Carlisle accepts pt for admission. [employer] Certified Network Professional: Dr Brown will consult . Historians other than the Patient: Friend: friend. Counseling: I had a detailed discussion with the patient and/or guardian regarding the historical points, exam findings, and any diagnostic results supporting the discharge/admit diagnosis, lab results, radiology results, the need for further work-up and treatment in the hospital. 11/29 10:44 Order name: CBC with Diff; Complete Time: 11:38 kb 11/29 10:44 Order name: CMP; Complete Time: 11:56 kb 11/29 10:44 Order name: Lipase; Complete Time: 11:56 kb 11/29 13:15 Order name: Lactate w/ 2H reflex if indic.; Complete Time: 16:14 EDMS 11/29 13:15 Order name: Magnesium; Complete Time: 16:08 EDMS 11/29 13:15 Order name: Phosphorus; Complete Time: 16: EDMS 11/29 13:15 Order name: UA Rfx Jose Cult if indicated EDMS 11/29 13:15 Order name: CBC with Automated Diff EDMS 11/29 13:15 Order name: CBC with Automated Diff EDMS 11/29 13:15 Order name: Comprehensive Metabolic Panel [facility] 11/29 13:15 Order name: Comprehensive Metabolic Panel [facility] 11/29 13:16 Order name: Lipid Profile [facility] 11/29 13:16 Order name: Lipid Profile [facility] 11/29 10:44 Order name: CT Abd/Pelvis - Without Contrast; Complete Time: 11:26 kb 11/29 13:22 Order name: Cholangiogram [facility] 11/29 10:44 Order name: IV Saline Lock; Complete Time: 11:20 kb 11/29 10:44 Order name: Labs collected and sent; Complete Time: 11:20 kb Administered Medications: 11:20 Drug: Famotidine IVP 20 mg IVP once; dilute with 10 mL 0.9% NaCl; give over 2 minutes ar8 Route: IVP; Infused Over: 3 mins; Site: right forearm; 15:07 Follow up: Response: No adverse reaction bp 11:20 Drug: NS 0.9% IV 1000 ml IV at 1 bolus Per protocol; to be given as a bolus over 60 ar8 minutes Route: IV; Rate: 1 bolus; Site: right forearm; 15:07 Follow up: IV Status: Completed infusion bp 11:25 Drug: metoCLOPramide IVP 10 mg IVP once; over 1 to 2 minutes Route: IVP; Infused Over: ar8 3 mins; Site: right forearm; 15:07 Follow up: Response: No adverse reaction bp 11:28 Drug: diphenhydrAMINE IVP 12.5 mg IVP once Route: IVP; Infused Over: 4 mins; Site: ar8 right forearm; 15:07 Follow up: Response: No adverse reaction bp Disposition: 18:08 Co-signature as Attending Physician, Harshad Joiner MD I reviewed the patient's care rn provided by the Advanced Practice Provider and agree with the diagnosis and treatment plan. Disposition Summary: 11/29/24 13:14 Hospitalization Ordered Notes: Hospitalization Status: Observation kb Provider: Prince alden Carlisle Location: Telemetry/MedSurg (observation) kb Condition: Stable kb Problem: new kb Symptoms: are unchanged kb Bed/Room Type: Standard kb Room Assignment: 429(11/29/24 14:53) bc6 Diagnosis - Nausea with vomiting, unspecified kb - Dehydration kb Forms: - Medication Reconciliation Form kb - SBAR form kb - Leadership Thank You Letter kb Signatures: Dispatcher [employer] Kenia Phillips, MONEY EXAMINER-C MONEY EXAMINER-Ckb Harshad Joiner MD MD rn Graham Kc RN RN ll1 Josephine Atwood 6 Arsen Thao RN RN ar8 Ashley, Timothy EPPERSON bp Corrections: (The following items were deleted from the chart) 14:53 13:14 [facility]
--- NOTE | 2024-11-29 13:44 | P.HP ---
Certification for Inpatient Patient admitted to: Observation With expected LOS: <2 Midnights Practitioner: I am a practitioner with admitting privileges, knowledge of patient current condition, hospital course, and medical plan of care. Services: Services provided to patient in accordance with Admission requirements found in Title 42 Section 412.3 of the Code of Federal Regulations Patient History Date of Service: 11/29/24 Reason for admission: Gastric outlet obstruction History of Present Illness: Patient is a 69-year-old male with a past medical history of hypertension, renal cancer status post nephrectomy, peptic ulcer disease and peripheral vascular disease status post stent placement previously on Plavix but now discontinued following 2 bleeding ulcers. She is being admitted for intractable nausea and vomiting. Her symptoms have been ongoing for the past few months. Patient has been having abdominal pain, nausea and nonbloody vomiting. Patient has a history of cholecystectomy. Workup in the ER included CT scan which revealed dilated intra and extrahepatic bile duct concerning for choledocholithiasis. Additionally, there could be evidence of gastric obstruction versus gastroparesis. The radiologist has recommended endoscopic evaluation. Allergies No Known Allergies Allergy (Verified 08/29/20 18:20) Physical Examination - Physical Exam General: Acute distress HEENT: Atraumatic, Normocephalic Respiratory: Clear to auscultation bilaterally, Normal air movement Cardiovascular: No edema, Normal pulses, Regular rate/rhythm, Normal S1 S2 Gastrointestinal: Soft and benign, Non-distended, Tenderness (Right upper quadrant tenderness) Neurological: Normal speech - Studies Laboratory Data (last 24 hrs) 11/29/24 11/29/24 11:18 11:18 WBC 9.30 Hgb 18.0 H Hct 52.3 H Plt Count 210 Sodium 126 L Potassium 3.5 BUN 31 H Creatinine 1.89 H Glucose 86 Total Bilirubin 0.8 AST 31 ALT 20 Alkaline Phosphatase 106 Lipase 99 H Assessment and Plan - Plan Assessment This 69-year-old female who is being admitted after she presented with intractable nausea, vomiting and abdominal pain, differentials include choledocholithiasis based on her CAT scan, and gastric outlet obstruction. Intractable nausea and vomiting Gastric outlet obstruction Choledocholithiasis Peptic ulcer disease Acute on chronic CKD stage III Status post nephrectomy for renal cancer Peripheral vascular disease Plan: Will admit under observation with telemetry Keep n.p.o. Volume repletion with IV fluid infusion normal saline infusion PPI, Reglan and antiemetic on board GI consulted for endoscopic evaluation Follow MRCP - Advance Directives Does patient have a Living Will: No Does patient have a Durable POA for Healthcare: No
[2024-11-29] MEDS: NA CHLORIDE 0.9% 1,000 ML IV SCH (14:00)
[2024-11-29] MEDS: METOCLOPRAMIDE 10 MG/2mL INJ IV SCH (14:00)
[2024-11-29] MEDS ORDERED: PANTOPRAZOLE 40 MG INJ ONE (15:45)
[2024-11-29 16:07] LABS: Magnesium 2.3 mg/dL (1.6-2.4)
--- NOTE | 2024-11-29 17:15 | RAD REPORT ---
EXAMINATION: MR CHOLANGIOGRAM CLINICAL INDICATION: Female, 69 years old. [facility] MAIN N Rule out choledocholithiasis TECHNIQUE: Multiplanar, multisequence MR imaging of the abdomen without intravenous contrast, and wit h specific attention to the biliary system. Unless otherwise specified, incidental findings do not require dedicated imaging follow-up. 3D MIP reconstruction performed. COMPARISON: CT abdomen pelvis 11/29/2024 FINDINGS: GALLBLADDER: Surgically removed. Foci of susceptibility signal dropout related to suture material. BILE DUCTS: Intrahepatic and extrahepatic biliary ductal dilation. Prominence of the common bile duct up to 1.3 cm at the mid aspect of the CBD. There is abrupt transition to markedly narrowed common duct distally, approximately at the level of the upper margin of the pancreatic head. Please see seri es 8 image 29. Distal caliber measures up to 2 mm. No filling defects to suggest choledocholithiasis. LIVER: Normal in size, contour, and signal without evidence of fatty infiltration or iron deposition. No focal lesion. Trace pericholecystic fluid. PANCREAS: Normal signal. No mass, ductal dilation, or adiel-pancreatic fluid. SPLEEN: Normal size. No focal lesion. ADRENALS: Normal; no mass. KIDNEYS: Status post left nephrectomy. No hydronephrosis or suspicious contour abnormality on the rig ht. LYMPH NODES: No lymphadenopathy. ADDITIONAL FINDINGS: Moderate distention of the stomach. Prominence of the gastric wall at the level of the pylorus. Nonspecific adventitial edema along the proximal duodenum. These findings are nonspecific. IMPRESSION: Intra and extrahepatic biliary ductal dilation. Common bile duct is prominent up to 1.3 cm at its mid aspect, with abrupt transition to markedly narrowed distal third of the common bile duct, findings which may suggest presence of a stricture, versus circumferential wall mass. Nonspecific wall prominence of the pylorus and proximal duodenum, please correlate clinically for antonio dence of duodenitis.
[2024-11-29] MEDS: D5 0.45 NS 1,000 ML IV SCH (18:37)
[2024-11-30 04:38] LABS: Absolute Lymphocytes (CBC) 1.5 K/uL (0.7-4.9); Hematocrit 43.1 % (36.0-45.0); Hemoglobin 14.9 g/dL (12.0-15.0); MCH 31.2 pg (27.0-35.0); MCHC 34.5 g/dL (32.0-36.0); MCV 90.4 fL (80-100); MPV 7.9 fL (7.6-11.3); Nucleated RBC Absolute Count 0.0 (0-0); Nucleated Red Blood Cells % 0.1 % (0-0); RBC Red Blood Cell Count 4.77 M/uL (3.86-4.86); White Blood Count 5.40 thou/uL (4.3-10.9)
[2024-11-30 04:58] LABS: ALT/SGPT 17.0 U/L (13-56); AST/SGOT 23.0 U/L (15-37); Albumin 3.0 g/dL (3.4-5.0); Albumin/Globulin Ratio 0.9 (1.1-1.8); Alkaline Phosphatase 84.0 U/L (45-117); Anion Gap 9.9 mEq/L (5.0-15.0); BUN Blood Urea Nitrogen 26.0 mg/dL (7-18); Globulin 3.3 g/dL (2.3-3.5); Glucose Level 95.0 mg/dL (74-106); HDL Cholesterol 56.0 mg/dL (40-60); LDL Cholesterol, Calculated 109.0 mg/dL (<130); LDL Cholesterol,Calc NonReport 109.0; Potassium 2.9 mEq/L (3.5-5.1)
[2024-11-30] MEDS: ONDANSETRON 4 MG/2 ML VIAL IV PRN (05:51)
[2024-11-30] MEDS: HYDRALAZINE HCL 20 MG/ML VIAL IV PRN (05:51)
[2024-11-30] MEDS: KCL 20 MEQ/100 mL IVPB 100 ML IV SCH (09:09)
[2024-11-30] MEDS: METOPROLOL XL 100 MG TAB PO SCH (09:09)
[2024-11-30] MEDS: ENOXAPARIN 30 MG/0.3 ML SQ SCH (09:09)
[2024-11-30] MEDS: SUCRALFATE 1 GM TABLET PO SCH (09:10)
--- NOTE | 2024-11-30 10:24 | P.PN ---
Subjective Date of Service: 11/30/24 Chief Complaint: Gastric outlet obstruction Subjective: Improving (MRCP confirms finding of biliary obstruction, stricture versus circumferential mass. Patient may also have duodenal stenosis. GI planning for EGD and dilatation once electrolytes are normalized) Physical Examination - Vital Signs Temperature: 98.1 F Blood Pressure: 153/74 Pulse: 66 Respirations: 17 Pulse Ox (%): 96 - Physical Exam General: Acute distress HEENT: Atraumatic, Normocephalic Respiratory: Clear to auscultation bilaterally, Normal air movement, Diminished Cardiovascular: No edema, Normal pulses, Regular rate/rhythm, Normal S1 S2 Gastrointestinal: Soft and benign, Non-distended Neurological: Normal speech - Studies Laboratory Data (last 24 hrs) 11/29/24 11/29/24 11:18 11:18 WBC 9.30 Hgb 18.0 H Hct 52.3 H Plt Count 210 Sodium 126 L Potassium 3.5 BUN 31 H Creatinine 1.89 H Glucose 86 Total Bilirubin 0.8 AST 31 ALT 20 Alkaline Phosphatase 106 Lipase 99 H Assessment And Plan - Plan Assessment This 69-year-old female who is being admitted after she presented with intractable nausea, vomiting and abdominal pain, differentials include choledocholithiasis based on her CAT scan, and gastric outlet obstruction. Intractable nausea and vomiting Hypokalemia - K+ 2.9 Gastric outlet obstruction/duodenal stenosis Choledocholithiasis Peptic ulcer disease Acute on chronic CKD stage III Status post nephrectomy for renal cancer Peripheral vascular disease Plan: Replace potassium Keep n.p.o. Continue volume repletion with normal saline infusion PPI, Reglan and antiemetic on board GI planning for EGD and duodenal dilatation. Discussed case with Dr. Brown Monitor renal function
[2024-11-30 15:45] LABS: Anion Gap 10.3 mEq/L (5.0-15.0); BUN Blood Urea Nitrogen 24.0 mg/dL (7-18); Glucose Level 104.0 mg/dL (74-106); Potassium 3.3 mEq/L (3.5-5.1)
[2024-11-30] MEDS: POTASSIUM 25 MEQ EFFERV TAB PO ONE (17:28)
[2024-11-30] MEDS: ACETAMINOPHEN 325 MG TABLET PO PRN (20:17)
[2024-12-01 04:43] LABS: Sqamous Epithelial None Seen /HPF (None Seen); Urine Culture Reflex Order NOT NEEDED; Urine Microscopic Reflex YN ORDER UMIC
[2024-12-01 07:48] LABS: Anion Gap 6.0 mEq/L (5.0-15.0); BUN Blood Urea Nitrogen 20.0 mg/dL (7-18); Glucose Level 103.0 mg/dL (74-106); Magnesium 2.1 mg/dL (1.6-2.4); Potassium 4.0 mEq/L (3.5-5.1)
[2024-12-01] MEDS: SODIUM PHOSPHATE 30 MM in NA CHLORIDE 0.9% 500 ML IV ONE (09:09)
--- NOTE | 2024-12-01 13:41 | P.PN ---
Subjective Date of Service: 12/01/24 Chief Complaint: Gastric outlet obstruction Subjective: Improving (Patient is n.p.o. for EGD today) Physical Examination - Vital Signs Temperature: 97.9 F Blood Pressure: 153/83 Pulse: 52 Respirations: 16 Pulse Ox (%): 100 - Physical Exam General: Alert, In no apparent distress, Cooperative HEENT: Atraumatic, Normocephalic Respiratory: Other (Speaking in full sentences) Cardiovascular: No edema Neurological: Normal speech Assessment And Plan - Plan Assessment This 69-year-old female who is being admitted after she presented with intractable nausea, vomiting and abdominal pain, differentials include choledocholithiasis based on her CAT scan, and gastric outlet obstruction. Intractable nausea and vomiting Hypokalemia -resolvedreplace Hypophosphatemia Gastric outlet obstruction/duodenal stenosis Choledocholithiasis Peptic ulcer disease Acute on chronic CKD stage III Status post nephrectomy for renal cancer Peripheral vascular disease Plan: N.p.o. for EGD today and duodenal dilatation Replace phosphorus Potassium within normal limits Continue volume repletion with normal saline infusion PPI, Reglan and antiemetic on board Patient can be discharged once cleared by GI
[2024-12-01] MEDS: NA CHLORIDE 0.9% 500 ML ONE (15:45)
[2024-12-01] MEDS: LIDOCAINE 2% MPF 5 ML VIAL ONE (16:07)
--- NOTE | 2024-12-01 17:11 | RAD REPORT ---
EXAM: Fluoroscopy use, Fluoroscopy <1 Hour HISTORY: EGD/DILITATION COMPARISON: None FINDINGS: Multiple images were sent to PACS, during a fluoroscopically guided procedure. No radiologi st was involved in protocoling or performance of the study, and no radiologist was present for the duration of the procedure. No interpretation of the saved images will be provided. Total fluoroscopy time: 1.39. IMPRESSION: Documentation of fluoroscopy use as above. Transcribed Date/Time: 12/01/2024 5:10 PM
--- NOTE | 2024-12-02 11:30 | P.PN ---
Subjective Date of Service: 12/02/24 Chief Complaint: Gastric outlet obstruction Subjective: Improving (Patient is feeling better. She is status post EGD with duodenal balloon dilation for duodenal obstruction.) Physical Examination - Vital Signs Temperature: 97.8 F Blood Pressure: 190/96 Pulse: 57 Respirations: 16 Pulse Ox (%): 96 - Physical Exam General: Alert, In no apparent distress, Cooperative HEENT: Atraumatic, Normocephalic Respiratory: Normal air movement Cardiovascular: No edema, Normal pulses, Regular rate/rhythm, Normal S1 S2 Gastrointestinal: Soft and benign, Non-distended Neurological: Normal speech Assessment And Plan - Plan Assessment This 69-year-old female who is being admitted after she presented with intractable nausea, vomiting and abdominal pain, differentials include choledocholithiasis based on her CAT scan, and gastric outlet obstruction. Intractable nausea and vomiting Hypokalemia -resolvedreplace Hypophosphatemia Gastric outlet obstruction/duodenal stenosis Duodenal obstruction Choledocholithiasis Peptic ulcer disease Acute on chronic CKD stage III Status post nephrectomy for renal cancer Peripheral vascular disease Uncontrolled hypertension Plan: Status post EGD and balloon dilation for duodenal obstruction Duodenal biopsy obtained, rule out malignancy TPN started Nutrition consulted Will not advance oral diet as per GI recommendation Continue volume repletion with normal saline infusion Blood pressure control Nifedipine added PPI, Reglan and antiemetic on board Patient can be discharged once cleared by GI
[2024-12-02] MEDS: NIFEDIPINE XL 60 MG TABLET PO SCH (12:25)
--- NOTE | 2024-12-02 19:19 | RAD REPORT ---
EXAMINATION: ONE VIEW CHEST XR CLINICAL INDICATION: picc placement TECHNIQUE: Frontal chest projection is submitted. Examination is limited by patient positioning and t echnique. COMPARISON: 08/29/2020 FINDINGS: Left-sided PICC line is tip in SVC. The lungs are grossly clear. The heart is upper limit of normal i n size. Right shoulder arthroplasty.
[2024-12-02] MEDS: Mupirocin NASAL 2 APPL/1 GM TUBE NAS SCH (19:51)
[2024-12-03 04:14] LABS: Absolute Lymphocytes (CBC) 1.5 K/uL (0.7-4.9); Hematocrit 40.7 % (36.0-45.0); Hemoglobin 13.7 g/dL (12.0-15.0); MCH 31.1 pg (27.0-35.0); MCHC 33.8 g/dL (32.0-36.0); MCV 92.1 fL (80-100); MPV 8.2 fL (7.6-11.3); Nucleated RBC Absolute Count 0.0 (0-0); Nucleated Red Blood Cells % 0.4 % (0-0); RBC Red Blood Cell Count 4.42 M/uL (3.86-4.86); White Blood Count 4.50 thou/uL (4.3-10.9)
[2024-12-03 04:25] LABS: Anion Gap 8.3 mEq/L (5.0-15.0); BUN Blood Urea Nitrogen 9.0 mg/dL (7-18); Glucose Level 106.0 mg/dL (74-106); Magnesium 1.9 mg/dL (1.6-2.4); Potassium 3.3 mEq/L (3.5-5.1)
[2024-12-03] MEDS: KCL 20 MEQ/100 mL IVPB 20 MEQ/100 ML BAG IV SCH (05:12)
[2024-12-03] MEDS: POTASSIUM CL 40 MEQ in NA CHLORIDE 0.9% 500 ML IV SCH (08:00)
--- NOTE | 2024-12-03 10:59 | P.PN ---
Subjective Date of Service: 12/03/24 Chief Complaint: Gastric outlet obstruction Subjective: Improving (Patient being started on TPN. PICC line placed) Physical Examination - Vital Signs Temperature: 98.4 F Blood Pressure: 118/62 Pulse: 57 Respirations: 17 Pulse Ox (%): 93 - Physical Exam General: Alert, In no apparent distress, Cooperative HEENT: Atraumatic, Normocephalic Cardiovascular: No edema, Normal pulses, Regular rate/rhythm, Normal S1 S2 Neurological: Normal speech Assessment And Plan - Plan Assessment This 69-year-old female who is being admitted after she presented with intractable nausea, vomiting and abdominal pain, differentials include choledocholithiasis based on her CAT scan, and gastric outlet obstruction. Intractable nausea and vomiting Hypokalemia -resolvedreplace Hypophosphatemia Gastric outlet obstruction/duodenal stenosis Duodenal obstruction Choledocholithiasis Peptic ulcer disease Acute on chronic CKD stage III Status post nephrectomy for renal cancer Peripheral vascular disease Uncontrolled hypertension Plan: Status post EGD and balloon dilation for duodenal obstruction Duodenal biopsy obtained, rule out malignancy TPN started, stop continuous IV fluid Nutrition consulted Will not advance to solid diet as per GI recommendation Blood pressure control Nifedipine added PPI, Reglan and antiemetic on board Patient can be discharged once cleared by GI Discharge plan: GI is waiting for duodenal biopsy to decide on the next step in management. There is also be a concern for malignancy
[2024-12-03] MEDS: AA 5%/D20W/ELECTROLYTES-TPN 2,000 ML IV SCH (17:51)
[2024-12-04 06:07] LABS: Absolute Lymphocytes (CBC) 1.5 K/uL (0.7-4.9); Hematocrit 41.4 % (36.0-45.0); Hemoglobin 14.3 g/dL (12.0-15.0); MCH 31.5 pg (27.0-35.0); MCHC 34.4 g/dL (32.0-36.0); MCV 91.5 fL (80-100); MPV 7.9 fL (7.6-11.3); Nucleated RBC Absolute Count 0.0 (0-0); Nucleated Red Blood Cells % 0.2 % (0-0); RBC Red Blood Cell Count 4.53 M/uL (3.86-4.86); White Blood Count 5.80 thou/uL (4.3-10.9)
[2024-12-04 06:20] LABS: Anion Gap 7.9 mEq/L (5.0-15.0); BUN Blood Urea Nitrogen 13.0 mg/dL (7-18); Glucose Level 122.0 mg/dL (74-106); Potassium 3.9 mEq/L (3.5-5.1)
[2024-12-04] MEDS: POTASSIUM CL SA 10 MEQ TAB PO ONE ×2 (08:38→21:42)
[2024-12-04] MEDS: AA 5%/D20W/ELECTROLYTES-TPN 2,000 ML, Lipids 20% 250 ML with MULTIVITAMINS INJ 10 ML IV SCH (18:03)
[2024-12-05 06:03] LABS: Absolute Lymphocytes (CBC) 1.5 K/uL (0.7-4.9); Hematocrit 41.4 % (36.0-45.0); Hemoglobin 14.1 g/dL (12.0-15.0); MCH 31.4 pg (27.0-35.0); MCHC 34.0 g/dL (32.0-36.0); MCV 92.3 fL (80-100); MPV 8.2 fL (7.6-11.3); Nucleated RBC Absolute Count 0.0 (0-0); Nucleated Red Blood Cells % 0.1 % (0-0); RBC Red Blood Cell Count 4.48 M/uL (3.86-4.86); White Blood Count 5.30 thou/uL (4.3-10.9)
[2024-12-05 06:20] LABS: Anion Gap 9.1 mEq/L (5.0-15.0); BUN Blood Urea Nitrogen 18.0 mg/dL (7-18); Glucose Level 128.0 mg/dL (74-106); Potassium 4.1 mEq/L (3.5-5.1)
[2024-12-05] MEDS: ENOXAPARIN 40 MG/0.4 ML SQ SCH (08:11)
--- NOTE | 2024-12-05 09:35 | P.PN ---
Date of Service: 12/04/24 Subjective Patient is stable. Patient scheduled for small bowel series. Patient denies any new complaints. Clinically patient is doing well. Spoke to GI. Plan is for patient to get a small bowel series Physical Examination - Vital Signs Reviewed - Physical Exam General: Alert, In no apparent distress, Cooperative HEENT: WNL Cardiovascular: No edema, Normal pulses, Regular rate/rhythm, Normal S1 S2 Pulmonary: Clear bilaterally GI: Soft/nontender/nondistended; bowel sounds hypoactive Ext: No clubbing/cyanosis/edema Neurological: No focal deficits Assessment And Plan - Assessment/Plan Assessment/Plan This 69-year-old female who is being admitted after she presented with intractable nausea, vomiting and abdominal pain, differentials include choledocholithiasis based on her CAT scan, and gastric outlet obstruction. 1. Gastric outlet obstruction; patient with needing surgical intervention. Patient with large ulceration according to the patient. Continue with PPI and antibiotic therapy. Biopsy pending. Pending biopsy results plan on doing additional endoscopy for dilatation. In the meantime TPN. 2. Acute on chronic kidney disease; stage III/patient's status post nephrectomy for renal cell carcinoma; continue monitoring renal function 3. Peripheral arterial disease; continue with antiplatelet therapy and statin therapy 4. History of hypertension; resume antihypertensives Discharge plan: GI is waiting for duodenal biopsy to decide on the next step in management. There is also be a concern for malignancy
--- NOTE | 2024-12-05 09:36 | P.PN ---
Date of Service: 12/05/24 Subjective Awaiting biopsy results. Spoke with GI and if biopsy results are negative then plan to proceed with pylorus dilatation. Currently, patient is clinically stable. Small bowel series completed. Gastric outlet obstruction confirmed Physical Examination - Vital Signs Reviewed - Physical Exam General: Alert, In no apparent distress, Cooperative HEENT: WNL Cardiovascular: No edema, Normal pulses, Regular rate/rhythm, Normal S1 S2 Pulmonary: Clear bilaterally GI: Soft/nontender/nondistended; bowel sounds hypoactive Ext: No clubbing/cyanosis/edema Neurological: No focal deficits Assessment And Plan - Assessment/Plan Assessment/Plan This 69-year-old female who is being admitted after she presented with intractable nausea, vomiting and abdominal pain, differentials include cho ledocholithiasis based on her CAT scan, and gastric outlet obstruction. 1. Gastric outlet obstruction; plan for EGD with pylorus/duodenal dilatation. Awaiting for pathology result. Patient with large ulceration according to the patient. Continue with PPI and antibiotic therapy. Biopsy pending. In the meantime TPN. 2. Acute on chronic kidney disease; stage III/patient's status post nephrectomy for renal cell carcinoma; continue monitoring renal function; clinically patient is stable 3. Peripheral arterial disease; continue with antiplatelet therapy and statin therapy 4. History of hypertension; resume antihypertensives Discharge plan: GI is waiting for duodenal biopsy to decide on the next step in management. As long as there is no evidence of malignancy then patient should be clinically stable to get an EGD with pylorus and duodenal dilatation
--- NOTE | 2024-12-05 12:14 | RAD REPORT ---
EXAMINATION: Small bowel series CLINICAL INDICATION: Female, 69 years old. SBO COMPARISON: No prior exam. FINDINGS: Deployment Technician film shows a nonspecific bowel gas pattern with moderate colonic stool burden. No obstruction o r free air. No suspicious calcifications. Stomach is markedly distended. Orally ingested contrast persists within the stomach lumen for the fir st hour of the study. Portable and supine 3 hour images demonstrate partially persistent contrast within the gastric lumen, contrast has progressed to the level of the colon. Dilution of contrast rosaura ng the small bowel limits small bowel mucosal evaluation. No intrinsic or extrinsic mass identifiable. Transit time to the colon is Normal. No fluoroscopy was performed. Total images acquired:8 IMPRESSION: Marked gastric distention, with delayed evacuation of contrast from stomach on the final three-hour f ilms. Please correlate clinically, and consider additional functional evaluation via Scintigraphic gastric imaging study. No delay of transit of contrast to the colon, however dilution of contrast along the small bowel limi ts evaluation of the small bowel mucosa.
[2024-12-06 07:10] LABS: Absolute Lymphocytes (CBC) 1.5 K/uL (0.7-4.9); Hematocrit 42.6 % (36.0-45.0); Hemoglobin 14.4 g/dL (12.0-15.0); MCH 31.1 pg (27.0-35.0); MCHC 33.8 g/dL (32.0-36.0); MCV 92.0 fL (80-100); MPV 8.2 fL (7.6-11.3); Nucleated RBC Absolute Count 0.0 (0-0); Nucleated Red Blood Cells % 0.0 % (0-0); RBC Red Blood Cell Count 4.63 M/uL (3.86-4.86); White Blood Count 6.90 thou/uL (4.3-10.9)
[2024-12-06 07:27] LABS: Anion Gap 13.1 mEq/L (5.0-15.0); BUN Blood Urea Nitrogen 25.0 mg/dL (7-18); Glucose Level 139.0 mg/dL (74-106); Potassium 4.1 mEq/L (3.5-5.1)
[2024-12-07 07:28] LABS: Absolute Lymphocytes (CBC) 1.3 K/uL (0.7-4.9); Hematocrit 41.8 % (36.0-45.0); Hemoglobin 14.0 g/dL (12.0-15.0); MCH 32.4 pg (27.0-35.0); MCHC 33.5 g/dL (32.0-36.0); MCV 96.7 fL (80-100); MPV 8.5 fL (7.6-11.3); Nucleated RBC Absolute Count 0.0 (0-0); Nucleated Red Blood Cells % 0.1 % (0-0); RBC Red Blood Cell Count 4.32 M/uL (3.86-4.86); White Blood Count 5.60 thou/uL (4.3-10.9)
[2024-12-07 09:02] LABS: Anion Gap 8.6 mEq/L (5.0-15.0); BUN Blood Urea Nitrogen 29.0 mg/dL (7-18); Glucose Level 118.0 mg/dL (74-106); HDL Cholesterol 52.0 mg/dL (40-60); LDL Cholesterol, Calculated 58.0 mg/dL (<130); LDL Cholesterol,Calc NonReport 58.0; Potassium 4.6 mEq/L (3.5-5.1)
[2024-12-07] MEDS: DEXTROSE 10%-WATER 500 ML IV ONE (13:34)
[2024-12-07] MEDS: NA CHLORIDE 0.9% 500 ML ONE (14:00)
[2024-12-07] MEDS ORDERED: LIDOCAINE 1% MPF 5 ML VIAL ONE (14:35)
[2024-12-07] MEDS: ZOLPIDEM TARTRATE 10 MG TABLET PO ONE (20:59)
--- NOTE | 2024-12-08 01:04 | P.PN ---
Date of Service: 12/06/24 Subjective Biopsy was negative. Spoke with GI and plan for EGD with pylorus and duodenal dilatation. Continue with PPI and TPN at this time. Patient clinically doing well. Physical Examination - Vital Signs Reviewed - Physical Exam General: Alert, In no apparent distress, Cooperative HEENT: WNL Cardiovascular: No edema, Normal pulses, Regular rate/rhythm, Normal S1 S2 Pulmonary: Clear bilaterally GI: Soft/nontender/nondistended; bowel sounds hypoactive Ext: No clubbing/cyanosis/edema Neurological: No focal deficits Assessment And Plan - Assessment/Plan Assessment/Plan This 69-year-old female who is being admitted after she presented with intractable nausea, vomiting and abdominal pain, differentials include choledocholithiasis based on her CAT scan, and gastric outlet obstruction. 1. Gastric outlet obstruction; plan for EGD with pylorus/duodenal dilatation. Pathology results with no evidence of malignancy. Patient with large ulceration according to the patient. Continue with PPI and antibiotic therapy. Continue with TPN. 2. Acute on chronic kidney disease; stage III/patient's status post nephrectomy for renal cell carcinoma; continue monitoring renal function; clinically patient is stable 3. Peripheral arterial disease; continue with antiplatelet therapy and statin therapy 4. History of hypertension; resume antihypertensives Discharge plan: GI planning for EGD. Patient should be clinically stable to get an EGD with pylorus and duodenal dilatation
--- NOTE | 2024-12-08 01:07 | P.PN ---
Date of Service: 12/07/24 Subjective EGD was completed today and unfortunately after the pylorus and duodenum was dilated it collapsed once again. GI is concerned that patient has a malignancy. Biopsies were taken once again. If biopsy confirms malignancy is present patient may need to proceed with Whipple procedure because of the extent of the lesions. Continue with PPI at this time. Patient also wanting to stop smoking. Will see if we can send Chantix prescription to the pharmacy. Physical Examination - Vital Signs Reviewed - Physical Exam General: Alert, In no apparent distress, Cooperative HEENT: WNL Cardiovascular: No edema, Normal pulses, Regular rate/rhythm, Normal S1 S2 Pulmonary: Clear bilaterally GI: Soft/nontender/nondistended; bowel sounds hypoactive Ext: No clubbing/cyanosis/edema Neurological: No focal deficits Assessment And Plan - Assessment/Plan Assessment/Plan This 69-year-old female who is being admitted after she presented with intractable nausea, vomiting and abdominal pain, differentials include choledocholithiasis based on her CAT scan, and gastric outlet obstruction. 1. Gastric outlet obstruction; s/p EGD with pylorus/duodenal dilatation. Patient's duodenum collapsed after dilatation. This is concerning for malignancy per GI. Multiple biopsies obtained once again. Awaiting for pathology results. Continue with PPI and antibiotic therapy. Continue with TPN. 2. Acute on chronic kidney disease; stage III/patient's status post nephrectomy for renal cell carcinoma; continue monitoring renal function; clinically patient is stable 3. Peripheral arterial disease; continue with antiplatelet therapy and statin therapy 4. History of hypertension; resume antihypertensives Discharge plan: GI s/p EGD. Patient s/p EGD with pylorus and duodenal dilatation; however, it collapsed once again concerning for malignancy; repeat biopsy pending
[2024-12-08 04:12] LABS: Absolute Lymphocytes (CBC) 1.4 K/uL (0.7-4.9); Hematocrit 37.8 % (36.0-45.0); Hemoglobin 13.0 g/dL (12.0-15.0); MCH 31.5 pg (27.0-35.0); MCHC 34.3 g/dL (32.0-36.0); MCV 91.8 fL (80-100); MPV 8.8 fL (7.6-11.3); Nucleated RBC Absolute Count 0.0 (0-0); Nucleated Red Blood Cells % 0.0 % (0-0); RBC Red Blood Cell Count 4.11 M/uL (3.86-4.86); White Blood Count 4.90 thou/uL (4.3-10.9)
[2024-12-08 04:28] LABS: AST/SGOT 11 U/L (15-37); Albumin 2.8 g/dL (3.4-5.0); Albumin/Globulin Ratio 1.0 (1.1-1.8); Alkaline Phosphatase 90 U/L (45-117); Anion Gap 9.9 mEq/L (5.0-15.0); BUN Blood Urea Nitrogen 28 mg/dL (7-18); Globulin 2.9 g/dL (2.3-3.5); Glucose Level 112 mg/dL (74-106); Magnesium 1.9 mg/dL (1.6-2.4); Potassium 3.9 mEq/L (3.5-5.1)
[2024-12-08 04:38] LABS: ALT/SGPT < 14 U/L (13-56)
[2024-12-08] MEDS: POTASSIUM 25 MEQ EFFERV TAB PO ONE (08:34)
--- NOTE | 2024-12-08 11:08 | RAD REPORT ---
EXAM: Fluoroscopy use, Fluoroscopy <1 Hour HISTORY: EGD W/ DILATATION COMPARISON: None FINDINGS: A total of 4 images were sent to PACS, during a fluoroscopically guided ERCP. No radiologis t was involved in protocoling or performance of the study, and no radiologist was present for the duration of the procedure. No interpretation of the saved images will be provided. Total fluoroscopy time: 35s. IMPRESSION: Documentation of fluoroscopy use as above.
--- NOTE | 2024-12-08 11:29 | P.PN ---
Date of Service: 12/08/24 Subjective: no new events stable overnight denies fever and chills Physical Exam: Gen: Alert, NAD, Orientedx3 CV: Regular rate and rhythm, no edema Pulm: Nonlabored respirations on room air, clear bilaterally Abdomen: Soft, nontender, nondistended Neuro: Normal strength, normal affect Problem List: Gastric outlet obstruction, s/p EGD with pylorus/duodenal dilatation HUA on CKD3 PAD s/p stenting Hypertension Hx renal cancer s/p nephrectomy Hx peptic ulcer disease Gastric outlet obstruction, s/p EGD with pylorus/duodenal dilatation MRCP: Intra and extrahepatic biliary ductal dilation. CBD up to 1.3 cm with abrupt transition to markedly narrowed distal third of the common bile duct. Nonspecific wall prominence of the pylorus and proximal duodenum s/p EGD with pylorus/duodenal dilatation (12/07) Patient's duodenum collapsed after dilatation, concerning for malignancy. Multiple biopsies obtained; pending path report. If malignant would need transfer for possible whipple procedure given the extent of the lesions. IV PPI daily, IV reglan, carafate PICC placed for TPN/PPN. Continue TPN/PPN Dr. Brown, GI is following. Appreciate further recommendations. HUA on CKD3 renal function stable. Continue to monitor. PAD s/p stenting Hypertension Hx renal cancer s/p nephrectomy Hx peptic ulcer disease confirm home meds, restart as appropriate continue home nifedipine, metoprolol VTE: Lovenox Code: Full Dispo: Home vs transfer Pending biopsy results
[2024-12-08 15:31] VITALS: BMI 27.4
[2024-12-08] MEDS: ZOLPIDEM TARTRATE 5 MG TABLET PO ONE (21:04)
[2024-12-09 05:05] LABS: Anion Gap 9.9 mEq/L (5.0-15.0); BUN Blood Urea Nitrogen 29.0 mg/dL (7-18); Glucose Level 112.0 mg/dL (74-106); Potassium 3.9 mEq/L (3.5-5.1)
--- NOTE | 2024-12-09 06:54 | P.PN ---
Date of Service: 12/09/24 Subjective: Continues to be on PPN No events overnight Blood pressures are mildly elevated States she has not had anything to eat since July 04 Physical Exam: Gen: Alert, NAD, Orientedx3 CV: Regular rate and rhythm, no edema Pulm: Nonlabored respirations on room air, clear bilaterally Abdomen: Soft, nontender, nondistended Neuro: Normal strength, normal affect Problem List: Gastric outlet obstruction, s/p EGD with pylorus/duodenal dilatation HUA on CKD3 PAD s/p stenting Hypertension Hx renal cancer s/p nephrectomy Hx peptic ulcer disease Gastric outlet obstruction, s/p EGD with pylorus/duodenal dilatation MRCP: Intra and extrahepatic biliary ductal dilation. CBD up to 1.3 cm with abrupt transition to markedly narrowed distal third of the common bile duct. Nonspecific wall prominence of the pylorus and proximal duodenum s/p EGD with pylorus/duodenal dilatation (12/07) Patient's duodenum collapsed after dilatation, concerning for malignancy. Multiple biopsies obtained; pending path report. If malignant would need transfer for possible whipple procedure given the extent of the lesions. IV PPI daily, IV reglan, carafate PICC placed for TPN/PPN. Continue TPN/PPN Dr. Brown, GI is following. Appreciate further recommendations. HUA on CKD3 renal function stable. Continue to monitor. PAD s/p stenting Hypertension Hx renal cancer s/p nephrectomy Hx peptic ulcer disease confirm home meds, restart as appropriate continue home nifedipine, metoprolol VTE: Lovenox Code: Full Dispo: Home vs transfer Pending biopsy results
[2024-12-09] MEDS ORDERED: AA 4.25 %/D5W/ELECTROLYTES 2,000 ML, Lipids 20% 250 ML with MULTIVITAMINS INJ 10 ML IV SCH (17:00)
[2024-12-10 05:34] LABS: Anion Gap 9.1 mEq/L (5.0-15.0); BUN Blood Urea Nitrogen 33.0 mg/dL (7-18); Glucose Level 110.0 mg/dL (74-106); Potassium 4.1 mEq/L (3.5-5.1)
--- NOTE | 2024-12-10 13:10 | P.PN ---
Date of Service: 12/10/24 Subjective: Remains the same Denies fevers and chills Mildly elevated BPs overnight Physical Exam: Gen: Alert, NAD, Orientedx3 CV: Regular rate and rhythm, no edema Pulm: Nonlabored respirations on room air, clear bilaterally Abdomen: Soft, nontender, nondistended Neuro: Normal strength, normal affect Problem List: Gastric outlet obstruction, s/p EGD with pylorus/duodenal dilatation HUA on CKD3 PAD s/p stenting Hypertension Hx renal cancer s/p nephrectomy Hx peptic ulcer disease Gastric outlet obstruction, s/p EGD with pylorus/duodenal dilatation MRCP: Intra and extrahepatic biliary ductal dilation. CBD up to 1.3 cm with abrupt transition to markedly narrowed distal third of the common bile duct. Nonspecific wall prominence of the pylorus and proximal duodenum s/p EGD with pylorus/duodenal dilatation (12/07) Patient's duodenum collapsed after dilatation, concerning for malignancy. Multiple biopsies obtained; pending path report. If malignant would need transfer for possible whipple procedure given the extent of the lesions. IV PPI daily, IV reglan, carafate PICC placed for TPN/PPN. Continue TPN/PPN Dr. Brown, GI is following. Appreciate further recommendations. HUA on CKD3 renal function stable. Continue to monitor. PAD s/p stenting Hypertension Hx renal cancer s/p nephrectomy Hx peptic ulcer disease confirm home meds, restart as appropriate continue home nifedipine, metoprolol VTE: Lovenox Code: Full Dispo: Home vs transfer Pending biopsy results
[2024-12-11 08:52] VITALS: O2SAT 96
[2024-12-11 09:12] LABS: Absolute Lymphocytes (CBC) 1.7 K/uL (0.7-4.9); Hematocrit 40.4 % (36.0-45.0); Hemoglobin 14.1 g/dL (12.0-15.0); MCH 31.7 pg (27.0-35.0); MCHC 34.9 g/dL (32.0-36.0); MCV 91.0 fL (80-100); MPV 8.1 fL (7.6-11.3); Nucleated RBC Absolute Count 0.0 (0-0); Nucleated Red Blood Cells % 0.1 % (0-0); RBC Red Blood Cell Count 4.44 M/uL (3.86-4.86); White Blood Count 7.30 thou/uL (4.3-10.9)
[2024-12-11 09:28] LABS: Anion Gap 10.1 mEq/L (5.0-15.0); BUN Blood Urea Nitrogen 30.0 mg/dL (7-18); Glucose Level 136.0 mg/dL (74-106); Potassium 4.1 mEq/L (3.5-5.1)
--- NOTE | 2024-12-11 14:53 | P.PN ---
Date of Service: 12/11/24 Subjective: We discussed transfer to [facility] for higher level of care including possible surgery Patient is understanding and agreement with the matter We discussed increasing to a full liquid diet No acute events overnight Physical Exam: Gen: Alert, NAD, Orientedx3 CV: Regular rate and rhythm, no edema Pulm: Nonlabored respirations on room air, clear bilaterally Abdomen: Soft, nontender, nondistended Neuro: Normal strength, normal affect Problem List: Gastric outlet obstruction, s/p EGD with pylorus/duodenal dilatation HUA on CKD3 PAD s/p stenting Hypertension Hx renal cancer s/p nephrectomy Hx peptic ulcer disease Gastric outlet obstruction, s/p EGD with pylorus/duodenal dilatation MRCP: Intra and extrahepatic biliary ductal dilation. CBD up to 1.3 cm with abrupt transition to markedly narrowed distal third of the common bile duct. Nonspecific wall prominence of the pylorus and proximal duodenum s/p EGD with pylorus/duodenal dilatation (12/07) Patient's duodenum collapsed after dilatation, concerning for malignancy. Multiple biopsies obtained; pending path report. If malignant would need transfer for possible whipple procedure given the extent of the lesions. IV PPI daily, IV reglan, carafate PICC placed for TPN/PPN. Continue TPN/PPN Discussed with GI this morning. Will transfer to [facility] for further evaluation by hepatobiliary surgeon. Dr. Brody, hospitalist, has accepted the transfer HUA on CKD3 renal function stable. Continue to monitor. PAD s/p stenting Hypertension Hx renal cancer s/p nephrectomy Hx peptic ulcer disease confirm home meds, restart as appropriate continue home nifedipine, metoprolol VTE: Lovenox Code: Full Dispo: Transfer to [facility] Pending biopsy results
--- NOTE | 2024-12-11 14:56 | P.DS ---
Admission Date: 11/30/24 Discharge Date: 12/11/24 Disposition: TRANSFER TO [facility] Discharge Condition: FAIR Reason for Admission: Gastric outlet obstruction Brief History of Present Illness: Patient is a 69-year-old male with a past medical history of hypertension, renal cancer status post nephrectomy, peptic ulcer disease and peripheral vascular disease status post stent placement previously on Plavix but now discontinued following 2 bleeding ulcers. She is being admitted for intractable nausea and vomiting. Her symptoms have been ongoing for the past few months. Patient has been having abdominal pain, nausea and nonbloody vomiting. Patient has a history of cholecystectomy. Workup in the ER included CT scan which revealed dilated intra and extrahepatic bile duct concerning for choledocholithiasis. Additionally, there could be evidence of gastric obstruction versus gastroparesis. The radiologist has recommended endoscopic evaluation. Upon admission GI was consulted and she underwent EGD status post pylorus/duodenal dilation. Patient's duodenum collapsed after dilation. GIs been concern for malignancy. Multiple biopsies were inconclusive. After discussion with Dr. Brown patient will transfer to [facility] was initiated and Dr. Brody has accepted the transfer. She will need evaluation by hepatobiliary surgeon for possible Whipple's procedure. Hospital Course: Physical Exam: Gen: Alert, NAD, Orientedx3 CV: Regular rate and rhythm, no edema Pulm: Nonlabored respirations on room air, clear bilaterally Abdomen: Soft, nontender, nondistended Neuro: Normal strength, normal affect Problem List: Gastric outlet obstruction, s/p EGD with pylorus/duodenal dilatation HUA on CKD3 PAD s/p stenting Hypertension Hx renal cancer s/p nephrectomy Hx peptic ulcer disease Gastric outlet obstruction, s/p EGD with pylorus/duodenal dilatation MRCP: Intra and extrahepatic biliary ductal dilation. CBD up to 1.3 cm with abrupt transition to markedly narrowed distal third of the common bile duct. Nonspecific wall prominence of the pylorus and proximal duodenum s/p EGD with pylorus/duodenal dilatation (12/07) Patient's duodenum collapsed after dilatation, concerning for malignancy. Multiple biopsies obtained; pending path report. If malignant would need transfer for possible whipple procedure given the extent of the lesions. IV PPI daily, IV reglan, carafate PICC placed for TPN/PPN. Continue TPN/PPN Discussed with GI this morning. Will transfer to [facility] for further evaluation by hepatobiliary surgeon. Dr. Brody, hospitalist, has accepted the transfer HUA on CKD3 renal function stable. Continue to monitor. PAD s/p stenting Hypertension Hx renal cancer s/p nephrectomy Hx peptic ulcer disease confirm home meds, restart as appropriate continue home nifedipine, metoprolol VTE: Lovenox Code: Full Dispo: Transfer to [facility] Pending biopsy results Vital Signs/Physical Exam: Temp Pulse Resp BP Pulse Ox 98.0 F 67 16 144/72 H 96 12/11/24 12:00 12/11/24 12:00 12/11/24 12:00 12/11/24 12:00 12/11/24 12:00 Laboratory Data at Discharge: WBC 7.30 thou/uL (4.3-10.9) 12/11/24 09:02 Hgb 14.1 g/dL (12.0-15.0) 12/11/24 09:02 Hct 40.4 % (36.0-45.0) 12/11/24 09:02 Plt Count 202 thou/uL (152-406) 12/11/24 09:02 Sodium 136 mEq/L (136-145) 12/11/24 09:02 Potassium 4.1 mEq/L (3.5-5.1) 12/11/24 09:02 BUN 30 mg/dL (7-18) H 12/11/24 09:02 Creatinine 1.20 mg/dL (0.55-1.02) H 12/11/24 09:02 Glucose 136 mg/dL (74-106) H 12/11/24 09:02 Phosphorus 3.1 mg/dL (2.5-4.9) 12/03/24 03:58 Magnesium 1.9 mg/dL (1.6-2.4) 12/08/24 03:55 Total Bilirubin 0.3 mg/dL (0.2-1.0) 12/08/24 03:55 AST 11 U/L (15-37) L 12/08/24 03:55 ALT < 14 U/L (13-56) 12/08/24 03:55 Alkaline Phosphatase 90 U/L (45-117) 12/08/24 03:55 Triglycerides 200 mg/dL (<150) H 12/07/24 08:26 Cholesterol 150 mg/dL (<200) 12/07/24 08:26 HDL Cholesterol 52 mg/dL (40-60) 12/07/24 08:26 Cholesterol/HDL Ratio 2.88 12/07/24 08:26 Lipase 99 U/L (13-75) H 11/29/24 11:18 Home Medications: Clopidogrel Bisulfate [Plavix*] 75 mg PO DAILY 11/29/24 Metoprolol Succinate 100 mg PO DAILY 11/29/24 Ondansetron [Zofran (Odt)*] 4 mg PO QID 11/29/24 Pantoprazole [Protonix Tab*] 40 mg PO BID 11/29/24 Sucralfate [Carafate*] 1 gm PO AC 11/29/24 Varenicline Tartrate [Chantix] 1 mg PO DAILY #30 tab 12/08/24 Nifedipine Xl [Procardia XL*] 60 mg PO DAILY 30 Days #30 tab 12/11/24 New Medications: Varenicline Tartrate [Chantix] 1 mg PO DAILY #30 tab Nifedipine Xl [Procardia XL*] 60 mg PO DAILY 30 Days #30 tab Followup: Latia Rivera MD [Primary Care Provider] - 1-2 Weeks (call for appointment.)
[2024-12-11 16:18] VITALS: BP 146/65; TEMP 98.2
== END 2024-12-11 16:04 | disposition short-term general hospital (02) | DRG 381 ==
LOC: ER 10:17 → ERHOLD 13:12 → 4TH 15:53 → OBSVTOIN 11-30 12:34
PROVIDERS: ADMIT Internal Medicine; ATTEND Family Medicine
PROC: 3E0436Z Introduction of Nutritional Substance into Central Vein, Percutaneous Approach (ICD-10-PCS; 2024-11-30)
PROC: 02HV33Z Insertion of Infusion Device into Superior Vena Cava, Percutaneous Approach (ICD-10-PCS; principal; 2024-12-02)
PROC: 0DB88ZX Excision of Small Intestine, Via Natural or Artificial Opening Endoscopic, Diagnostic (ICD-10-PCS; 2024-12-08)
DX: K31.1 Adult hypertrophic pyloric stenosis (principal); K31.5 Obstruction of duodenum; N17.9 Acute kidney failure, unspecified; E86.0 Dehydration; E87.6 Hypokalemia; I73.9 Peripheral vascular disease, unspecified; E83.39 Other disorders of phosphorus metabolism; K80.50 Calculus of bile duct without cholangitis or cholecystitis without obstruction; K27.9 Peptic ulcer, site unspecified, unspecified as acute or chronic, without hemorrhage or perforation; K59.89 Other specified functional intestinal disorders; I12.9 Hypertensive chronic kidney disease with stage 1 through stage 4 chronic kidney disease, or unspecified chronic kidney disease; N18.30 Chronic kidney disease, stage 3 unspecified; F17.210 Nicotine dependence, cigarettes, uncomplicated; Z90.5 Acquired absence of kidney; Z88.2 Allergy status to sulfonamides; Z88.5 Allergy status to narcotic agent; Z79.02 Long term (current) use of antithrombotics/antiplatelets; Z90.49 Acquired absence of other specified parts of digestive tract; Z79.899 Other long term (current) drug therapy; Z90.710 Acquired absence of both cervix and uterus; Z85.528 Personal history of other malignant neoplasm of kidney
CPT/HCPCS: 36415; 71045; 74176; 74181; 74250; 76000; 80048; 80053; 80061; 81001; 82947; 83605; 83690; 83735; 84100; 85025; 88304; 88305; 96361; 96374; 96375; 99285; C1726; G0378; J0360; J1200; J1650; J2003; J2405; J2470; J2704; J2765; J3480; J7030; J7040; J7799

== ENCOUNTER 2025-02-14 09:10 | Day surgery (SDC) | payer OTHER ==
[2025-02-14 09:10] LABS: Absolute Lymphocytes (CBC) 1.0 K/uL (0.7-4.9); Hematocrit 43.9 % (36.0-45.0); Hemoglobin 14.7 g/dL (12.0-15.0); MCH 30.8 pg (27.0-35.0); MCHC 33.6 g/dL (32.0-36.0); MCV 91.8 fL (80-100); MPV 7.3 fL (7.6-11.3); Nucleated RBC Absolute Count 0.0 (0-0); Nucleated Red Blood Cells % 0.2 % (0-0); RBC Red Blood Cell Count 4.78 M/uL (3.86-4.86); White Blood Count 4.40 thou/uL (4.3-10.9)
[2025-02-14 09:27] LABS: Anion Gap 8.4 mEq/L (5.0-15.0); BUN Blood Urea Nitrogen 9.0 mg/dL (7-18); Glucose Level 82.0 mg/dL (74-106); Potassium 4.4 mEq/L (3.5-5.1)
[2025-02-14] MEDS: Ringers Lactate 1,000 ML IV ONE ×2 (09:50→13:16)
[2025-02-14] MEDS: ONDANSETRON 4 MG/2 ML VIAL ONE (09:53)
[2025-02-14] MEDS ORDERED: HEPARIN 5000 UNIT/ML 1 ML VIAL ONE (11:44)
[2025-02-14] MEDS ORDERED: NA CHLORIDE 0.9% 50 ML ONE (11:45)
[2025-02-14] MEDS ORDERED: KETOROLAC 30 MG/ML INJ ONE (11:49)
[2025-02-14] MEDS ORDERED: LIDOCAINE 2% MPF 5 ML VIAL ONE (11:49)
[2025-02-14] MEDS ORDERED: MIDAZOLAM HCL 2 MG/2 ML INJ ONE (11:49)
[2025-02-14] MEDS ORDERED: ONDANSETRON 4 MG/2 ML VIAL ONE (11:49)
[2025-02-14] MEDS ORDERED: FENTANYL CITR 100 MCG/2 ML ONE (11:49)
[2025-02-14] MEDS: CEFAZOLIN SODIUM 2 GM/VIAL ONE (12:12)
[2025-02-14] MEDS ORDERED: NS 0.9% VIAL 10 ML ONE (12:37)
[2025-02-14] MEDS: LIDOCAINE HCL/EPINEPHRINE 20 ML MDV ONE (12:42)
--- NOTE | 2025-02-14 13:05 | P.OP ---
Preoperative diagnosis: Need for Chemotherapy Postoperative diagnosis: Need for Chemotherapy Primary procedure: Placement of RIGHT Internal Jugular Chemotherapy Port Secondary procedure: Ultrasound and Flouroscopic Guidance Used w/ Iterpretation Anesthesia: GETA + Local Estimated blood loss: <5cc Specimen: None Findings: Cath @ SVC Complications: None Implants: Portacath Transferred to: Recovery Room Condition: Good
--- NOTE | 2025-02-14 13:09 | RAD REPORT ---
EXAM: Fluoroscopy use, Fluoroscopy <1 Hour HISTORY: PORT A CATH PLACEMENT COMPARISON: None FINDINGS: Multiple images were sent to PACS, during a fluoroscopically guided procedure. No radiologi st was involved in protocoling or performance of the study, and no radiologist was present for the duration of the procedure. No interpretation of the saved images will be provided. Total fluoroscopy time: 0.2 min. IMPRESSION: Documentation of fluoroscopy use as above. Transcribed Date/Time: 02/14/2025 1:09 PM
--- NOTE | 2025-02-14 13:33 | OP ---
Date of Procedure: 02/14/2025 Surgeon: Jonas Lucero MD, Preoperative Diagnosis: Need for chemotherapy. Postoperative Diagnosis: Need for chemotherapy. Procedure Performed: Placement of right internal jugular chemotherapy port using ultrasound and fluo roscopic guidance utilized with interpretation. Anesthesia: General endotracheal plus local with 1% lidocaine with epinephrine. Estimated Blood Loss: 5 cc. Specimen: None. Findings: Catheter tip was at the confluence of the superior vena cava. Complications: None. Implant: Port-A-Cath. Disposition: The patient was transferred to recovery room in good condition. Procedure In Detail: After informed consent was obtained, the patient was brought to the operating r oom, prepped and draped in the usual sterile fashion after adequate anesthesia was achieved. The pat ient was placed in steep Trendelenburg position. At this point, I ultrasound the right internal jugu lar vein on the right side. Using ultrasound guidance, I cannulated the right internal jugular vein with a microintroducer needle. At this point, micro wire was advanced to the right atrium at this po int under fluoroscopic guidance. Fluoroscopy confirmed the position. At this point, I anesthetized the entire tract at the presumed place of the Port-A-Cath. I then made a small heri incision overlyi ng the insertion site with an 11 blade. I introduced the 5-[place] introducer sheath. The micro wire was removed, at this point. Standard wire was advanced under fluoroscopic guidance once again. Pos ition was confirmed. At this point, I then proceeded to make an incision on the right chest wall usi ng a passing device. I brought the passing device into the insertion site, brought the tubing into t he appropriate location. I then used the introducer sheath and placed it over the wire using [place] er technique into the appropriate position, removed the wire at this point under fluoroscopic guidanc e and I advanced the tubing to the appropriate position at the confluence of the superior vena cava. At this point, the introducer sheath was removed. At this point, I then proceeded to secure the loc k collar onto the tubing after appropriately sizing this tubing and placing on this subcutaneous port . I then placed subcutaneous port in the appropriate anatomic site on the right chest wall after manuel aring preperitoneal fat away to expose the prepectoral fascia. At this point, I secured the catheter using 2-0 Prolene sutures to the chest prepectoral fascia securing the catheter, at this point. I t hen flushed with sterile saline and glory back dark red blood and then was flushed until completely cl ear with sterile saline. At this point, I packed it with heparin super flush. At this point, all sk in incisions were then copiously irrigated and the chest wall subcutaneous skin incision was closed u sing a 3-0 Vicryl suture in the subcutaneous position, followed by 4-0 Monocryl in running fashion, D ermabond was placed over top. I then closed the right internal jugular insertion site with a single interrupted 3-0 nylon suture. The area was cleansed at this point and sterile dressing was applied. The patient tolerated the procedure without incident or complication and transferred to PACU in good condition. All counts were correct at the end of the case. JAMIR/GRAZYNA Voice ID: [id number] Report ID: [id number]
[2025-02-14] MEDS ORDERED: SUCCINYLCHOLINE 20 MG/ML (10 ML) IV ONE (13:34)
[2025-02-14] MEDS: PROMETHAZINE INJ 25 MG/ML AMP ONE (13:51)
--- NOTE | 2025-02-14 14:38 | RAD REPORT ---
EXAMINATION: ONE VIEW CHEST XR CLINICAL INDICATION: Female, 69 years old.,s/p port a cath TECHNIQUE: Frontal chest projection is submitted. Examination is limited by patient positioning and t echnique. COMPARISON: 12/02/2024 FINDINGS: Right chest wall Port-A-Cath in satisfactory position with tip at the mid to distal SVC. The lungs ar e well inflated and clear. No pneumothorax or sizable effusion. The heart is normal in size. Mediastinal contours are unremarkable. IMPRESSION: Satisfactory positioning of right chest wall Port-A-Cath. No acute intrathoracic abnormalities.
[2025-02-14 15:18] VITALS: BP 154/80; TEMP 97; O2SAT 96
== END 2025-02-14 16:10 | disposition home or self-care (01) ==
LOC: OR 09:10
PROVIDERS: ATTEND Surgery
PROC: 0JH60WZ Insertion of Totally Implantable Vascular Access Device into Chest Subcutaneous Tissue and Fascia, Open Approach (ICD-10-PCS; principal; 2025-02-14 12:00)
DX: C25.9 Malignant neoplasm of pancreas, unspecified (principal)
CPT/HCPCS: 93005; 85025; 80048; 36415; 71045; 36561; J1885; J2550; J1644 ×2; A4216; J2704; J2003; J2250; J3010; J1100; J2405; J7120 ×2; C1788; J0330; 76000